=== PATIENT | male | born 1955 | race Hispanic/Latino ===

== ENCOUNTER 2016-09-21 14:41 | Emergency (ER) | payer MEDICAID ==
[2016-09-21 15:04] VITALS: BP 140/79
[2016-09-21] MEDS ORDERED: TYLENOL #3 PO ONE (15:23)
--- NOTE | 2016-09-21 15:25 | Emergency Department Report ---
ED Lower Extremity HPI - General Chief Complaint: Extremity Injury, Lower Stated Complaint: KNEE PAIN/BACK /HEADACHE Time Seen by Provider: 09/21/16 15:21 Source: patient, EMS Mode of arrival: Stretcher Limitations: No Limitations - History of Present Illness Complaint: knee injury Onset/Timin -: Gradual, year(s) Injury: Knee: Right, Left Type of Injury: hyperflexion Place: home Severity: moderate Severity scale (0 -10): 5 Improves With: NSAID Worsens With: weight bearing, movement Associated Symptoms: able to partially bear weight, ambulatory. denies: snap/ pop sensation, swelling, numbness, tingling Treatments Prior to Arrival: cold therapy - Related Data Home Medications Medication Instructions Recorded Confirmed Last Taken diphenhydrAMINE [Benadryl] 100 mg PO PRN PRN 03/04/13 10/30/14 3 Days Ago clonazePAM 2 mg PO BID 10/09/14 10/30/14 3 Days Ago clonazePAM [KlonoPIN] 2 mg PO BID 10/09/14 10/30/14 3 Days Ago Previous Rx's Medication Instructions Recorded Last Taken Type LORazepam [Ativan] 2 mg PO Q8HR #6 tablet 08/31/14 3 Days Ago Rx Bupropion HCl [Wellbutrin XL] 300 mg PO QAM #30 tab.er.24h 09/10/14 3 Days Ago Rx Venlafaxine Xr [Effexor XR] 150 mg PO ONCE #30 capsule 09/10/14 3 Days Ago Rx Zolpidem [Ambien] 10 mg PO QHS #10 tablet 09/10/14 3 Days Ago Rx traMADol [Ultram 50 MG tab] 50 mg PO Q6HR PRN #30 tablet 08/18/16 Unknown Rx HYDROcodone/APAP 10-325 [[place] 1 each PO Q8HR PRN #15 tablet 09/21/16 Unknown Rx 10-325 mg TAB] Allergies Allergy/AdvReac Type Severity Reaction Status Date / Time buspirone HCl [From BuSpar] AdvReac PSYCHOTIC Verified 08/18/16 17:18 olanzapine [From Zyprexa] AdvReac PSYCHOTIC Verified 08/18/16 17:18 quetiapine fumarate AdvReac PSYCHOTIC Verified 08/18/16 17:18 [From Seroquel] ED Review of Systems ROS: Stated complaint: KNEE PAIN/BACK /HEADACHE Other details as noted in HPI Constitutional: denies: chills, fever Eyes: denies: eye pain, eye discharge, vision change ENT: denies: ear pain, throat pain Respiratory: denies: cough, shortness of breath, wheezing Cardiovascular: denies: chest pain, palpitations Endocrine: no symptoms reported Gastrointestinal: denies: abdominal pain, nausea, diarrhea Genitourinary: denies: urgency, dysuria Musculoskeletal: denies: back pain, joint swelling, arthralgia Skin: denies: rash, lesions Neurological: denies: headache, weakness, paresthesias Psychiatric: denies: anxiety, depression Hematological/Lymphatic: denies: easy bleeding, easy bruising ED Past Medical Hx - Past Medical History Hx Hypertension: Yes Hx Arthritis: Yes Hx Psychiatric Treatment: Yes (anxiety, ptsd, depression) Additional medical history: CHRONIC BACK PAIN. HARD OF HEARING. BULGING DISCS - Surgical History Additional Surgical History: L leg surgery (1994) - Social History Smoking Status: Never Smoker Substance Use Type: None - Medications Home Medications: Home Medications Medication Instructions Recorded Confirmed Last Taken Type diphenhydrAMINE [Benadryl] 100 mg PO PRN PRN 03/04/13 10/30/14 3 Days Ago History LORazepam [Ativan] 2 mg PO Q8HR #6 tablet 08/31/14 10/30/14 3 Days Ago Rx Bupropion HCl [Wellbutrin XL] 300 mg PO QAM #30 tab.er.24h 09/10/14 10/30/14 3 Days Ago Rx Venlafaxine Xr [Effexor XR] 150 mg PO ONCE #30 capsule 09/10/14 10/30/14 3 Days Ago Rx Zolpidem [Ambien] 10 mg PO QHS #10 tablet 09/10/14 10/30/14 3 Days Ago Rx clonazePAM 2 mg PO BID 10/09/14 10/30/14 3 Days Ago History clonazePAM [KlonoPIN] 2 mg PO BID 10/09/14 10/30/14 3 Days Ago History traMADol [Ultram 50 MG tab] 50 mg PO Q6HR PRN #30 tablet 08/18/16 Unknown Rx HYDROcodone/APAP 10-325 [[place] 1 each PO Q8HR PRN #15 tablet 09/21/16 Unknown Rx 10-325 mg TAB] ED Physical Exam - General Limitations: No Limitations General appearance: alert, in no apparent distress - Head Head exam: Present: atraumatic, normocephalic - Eye Eye exam: Present: normal appearance - ENT ENT exam: Present: mucous membranes moist - Neck Neck exam: Present: normal inspection - Respiratory Respiratory exam: Present: normal lung sounds bilaterally. Absent: respiratory distress - Cardiovascular Cardiovascular Exam: Present: regular rate, normal rhythm. Absent: systolic murmur, diastolic murmur, rubs, gallop - GI/Abdominal GI/Abdominal exam: Present: soft, normal bowel sounds - Rectal Rectal exam: Present: deferred - Extremities Exam Extremities exam: Present: normal inspection, full ROM, tenderness (bilateral patella tendon tenderness , good rom but limited due to pain , able to ambulate here in the ER), normal capillary refill. Absent: pedal edema, joint swelling, calf tenderness - Back Exam Back exam: Present: normal inspection - Neurological Exam Neurological exam: Present: alert, oriented X3 - Psychiatric Psychiatric exam: Present: normal affect, normal mood - Skin Skin exam: Present: warm, dry, intact, normal color. Absent: rash ED Course Vital Signs 09/21/16 09/21/16 14:58 15:54 Temperature 98.3 F Pulse Rate 88 Respiratory 16 20 Rate Blood Pressure 140/79 O2 Sat by Pulse 99 Oximetry Critical care attestation.: If time is entered above; I have spent that time in minutes in the direct care of this critically ill patient, excluding procedure time. ED Disposition Clinical Impression: Knee pain Disposition: DISCHARGED TO HOME OR SELFCARE Is pt being admited?: No Does the pt Need Aspirin: No Condition: Good Instructions: Lumbar Radiculopathy (ED), Arthralgia (ED) Prescriptions: HYDROcodone/APAP 10-325 [[place]incoln 10-325 mg TAB] 1 each PO Q8HR PRN #15 tablet PRN Reason: Pain Referrals: PRIMARY CARE, [Primary Care Provider] - 3-5 Days IVAN VOGT MD [Staff Physician] - 3-5 Days Time of Disposition: 17:36
--- NOTE | 2016-09-22 07:41 | XRay Report ---
LUMBOSACRAL SPINE, 3 VIEWS: History: Back pain Findings: The vertebral bodies, disk spaces and posterior elements are intact. No compression deformity or malalignment. Mild degenerative disc disease and facet arthropathy are identified at all levels. The SI joints are symmetric and unremarkable. Impression: 1. No evidence for acute injury to the lumbar spine.
--- NOTE | 2016-09-22 07:43 | XRay Report ---
BILATERAL KNEES, 3 VIEWS: History: Bilateral knee pain after fall. Findings: Normal bone mineralization. No acute osseous injury is appreciated. The joint space is within normal limits. No joint effusions are identified. Within the right knee, there is an approximate 3 mm radiodensity in the anterior soft tissues just superior to the patella. This could represent a foreign body. Please correlate with the patient and the image. Impression: Unremarkable bilateral knees. Possible soft tissue foreign body as described above. It is unclear if this is acute or chronic.
== END 2016-09-21 18:05 | disposition home or self-care (01) ==
LOC: ED 14:41
DX: M25.561 Pain in right knee (principal); M25.562 Pain in left knee; I10 Essential (primary) hypertension; M19.90 Unspecified osteoarthritis, unspecified site; F32.9 Major depressive disorder, single episode, unspecified; F41.9 Anxiety disorder, unspecified; F43.10 Post-traumatic stress disorder, unspecified; G89.29 Other chronic pain
CPT/HCPCS: 72100; 99284

== ENCOUNTER 2016-09-28 10:34 | Emergency (ER) | payer MEDICAID ==
[2016-09-28 10:43] VITALS: BP 144/105
[2016-09-28 12:40] LABS: Bilirubin,Urine NEG (Negative); Blood,Urine NEG (Negative); Ketones,Urine NEG (Negative); Leukocyte Esterase,Urine NEG (Negative); Mucus,Urine FEW /HPF; Nitrite,Urine NEG (Negative); Protein,Urine <15 mg/dL mg/dL (Negative)
--- NOTE | 2016-09-28 13:00 | Emergency Department Report ---
HPI - General Chief Complaint: Extremity Problem,Nontraumatic Time Seen by Provider: 09/28/16 11:08 - HPI HPI: 61-year-old male with history of chronic back pain presents today with worsening lower back pain radiating down his leg. Patient was seen here last week for similar symptoms, an x-ray was performed and revealed no acute findings. Patient is also complaining of numbness going down his right leg. Patient was unable to follow up with orthopedic due to them not accepting his medicaid. Denies any new or worsening symptoms. Denies bowel or bladder incontinence. Patient does complain of weak stream and dribbling post urination 2 weeks. Denies fever, chills, nausea, vomiting, chest pain, shortness of breath, abdominal pain. ED Past Medical Hx - Past Medical History Previous Medical History?: Yes Hx Hypertension: Yes Hx Arthritis: Yes Hx Psychiatric Treatment: Yes (anxiety, ptsd, depression) Additional medical history: CHRONIC BACK PAIN. HARD OF HEARING. BULGING DISCS - Surgical History Past Surgical History?: Yes Additional Surgical History: L leg surgery (1994) - Social History Smoking Status: Current Every Day Smoker Substance Use Type: Non Opiate Pain, Prescribed - Medications Home Medications: Home Medications Medication Instructions Recorded Confirmed Last Taken Type diphenhydrAMINE [Benadryl] 100 mg PO PRN PRN 03/04/13 10/30/14 3 Days Ago History LORazepam [Ativan] 2 mg PO Q8HR #6 tablet 08/31/14 10/30/14 3 Days Ago Rx Bupropion HCl [Wellbutrin XL] 300 mg PO QAM #30 tab.er.24h 09/10/14 10/30/14 3 Days Ago Rx Venlafaxine Xr [Effexor XR] 150 mg PO ONCE #30 capsule 09/10/14 10/30/14 3 Days Ago Rx Zolpidem [Ambien] 10 mg PO QHS #10 tablet 09/10/14 10/30/14 3 Days Ago Rx clonazePAM 2 mg PO BID 10/09/14 10/30/14 3 Days Ago History clonazePAM [KlonoPIN] 2 mg PO BID 10/09/14 10/30/14 3 Days Ago History traMADol [Ultram 50 MG tab] 50 mg PO Q6HR PRN #30 tablet 08/18/16 Unknown Rx Cyclobenzaprine [Flexeril] 10 mg PO TID PRN #20 tablet 09/28/16 Unknown Rx HYDROcodone/APAP 10-325 [Lloyd 1 each PO Q8HR PRN #7 tablet 09/28/16 Unknown Rx 10-325 mg TAB] Ketorolac [Toradol] 10 mg PO Q6H PRN #20 tablet 09/28/16 Unknown Rx ED Review of Systems ROS: Stated complaint: NUMBNESS IN BOTH LEGS Other details as noted in HPI Constitutional: denies: chills, fever, malaise Eyes: denies: eye pain ENT: denies: ear pain, throat pain, congestion Respiratory: denies: cough, shortness of breath, wheezing Cardiovascular: denies: chest pain, palpitations Endocrine: no symptoms reported Gastrointestinal: denies: abdominal pain, nausea, vomiting Genitourinary: other (weak stream and dribbling post urination). denies: urgency, dysuria, frequency, hematuria Musculoskeletal: back pain Neurological: numbness. denies: headache, weakness Physical Exam - Physical Exam Vital Signs: Vital Signs 09/28/16 10:39 Temperature 98.6 F Pulse Rate 98 H Respiratory 20 Rate Blood Pressure 144/105 O2 Sat by Pulse 100 Oximetry Physical Exam: GENERAL: The patient is well-developed and well-nourished. Patient is in NAD. HEAD: Normocephalic. Atraumatic. CHEST/LUNGS: Clear to auscultation throughout. HEART/CARDIOVASCULAR: Regular rate and rhythm. No murmurs, rubs or gallops. ABDOMEN: Abdomen is soft, nontender. Bowel sounds normoactive. No guarding or rebound tenderness. EXTREMITIES: Full range of motion. Peripheral pulses intact. Capillary refill less than 2 seconds. BACK: Full ROM. Positive for midline and bilateral paraspinal tenderness of the lumbar region. Positive for tenderness to palpation of right sciatic notch. Negative straight leg raise bilaterally. NEURO: Alert and oriented x 3. Normal gait. ED Course Vital Signs 09/28/16 10:39 Temperature 98.6 F Pulse Rate 98 H Respiratory 20 Rate Blood Pressure 144/105 O2 Sat by Pulse 100 Oximetry ED Medical Decision Making - Lab Data Vital Signs 09/28/16 10:39 Temperature 98.6 F Pulse Rate 98 H Respiratory 20 Rate Blood Pressure 144/105 O2 Sat by Pulse 100 Oximetry Lab Results 09/28/16 Range/Units 11:30 Urine Color Yellow (Yellow) Urine Turbidity Clear (Clear) Urine pH 7.0 (5.0-7.0) Ur Specific [place] 1.014 (1.003-1.030) Urine Protein <15 mg/dl (Negative) mg/dL Urine Glucose (UA) Neg (Negative) mg/dL Urine Ketones Neg (Negative) mg/dL Urine Blood Neg (Negative) Urine Nitrite Neg (Negative) Urine Bilirubin Neg (Negative) Urine Urobilinogen 4.0 (<2.0) mg/dL Ur Leukocyte Esterase Neg (Negative) Urine WBC (Auto) 1.0 (0.0-6.0) /HPF Urine RBC (Auto) 3.0 (0.0-6.0) /HPF U Epithel Cells (Auto) < 1.0 (0-13.0) /HPF Calcium Oxalate Crystal 1+ Urine Mucus Few /HPF - Medical Decision Making 61-year-old male presents today with history of chronic back pain and sciatica like symptoms. Patient will be provided with a referral for orthopedic. Patient is in no acute distress at this time. He will be discharged home and is encouraged to follow up with a primary care provider. He will be sent home on Flexeril and tramadol and is encouraged to return to the emergency room for any worsening symptoms. Critical care attestation.: If time is entered above; I have spent that time in minutes in the direct care of this critically ill patient, excluding procedure time. ED Disposition Clinical Impression: Chronic back pain Qualifiers: Back pain location: low back pain Back pain laterality: bilateral Sciatica presence: with sciatica Sciatica laterality: sciatica of right side Qualified Code(s): M54.41 - Lumbago with sciatica, right side; G89.29 - Other chronic pain Disposition: DISCHARGED TO HOME OR SELFCARE Is pt being admited?: No Does the pt Need Aspirin: No Condition: Stable Instructions: Chronic Back Pain (ED), Sciatica (ED) Additional Instructions: Follow-up with primary care provider and orthopedic. Return to the emergency department if symptoms worsen. Prescriptions: Cyclobenzaprine [Flexeril] 10 mg PO TID PRN #20 tablet PRN Reason: Muscle Spasm HYDROcodone/APAP 10-325 [Lloyd 10-325 mg TAB] 1 each PO Q8HR PRN #7 tablet PRN Reason: Pain Ketorolac [Toradol] 10 mg PO Q6H PRN #20 tablet PRN Reason: Pain Referrals: [facility] [Provider Group] - 3-5 Days PRIMARY CAREMD [Primary Care Provider] - 3-5 Days ARNOLDO TAYLOR MD [Staff Physician] - 3-5 Days JULIETTE SOTO MD [Staff Physician] - 3-5 Days SHERITA MCLAUGHLIN MD [Staff Physician] - 3-5 Days Forms: Work/School Release Form(ED) Time of Disposition: 13:03
== END 2016-09-28 13:18 | disposition home or self-care (01) ==
LOC: ED 10:34
DX: M54.41 Lumbago with sciatica, right side (principal); G89.29 Other chronic pain; I10 Essential (primary) hypertension; M19.90 Unspecified osteoarthritis, unspecified site; F41.9 Anxiety disorder, unspecified; F32.9 Major depressive disorder, single episode, unspecified; F17.200 Nicotine dependence, unspecified, uncomplicated
CPT/HCPCS: 81001; 99283

== ENCOUNTER 2016-10-01 12:46 | Emergency (ER) | payer MEDICAID ==
--- NOTE | 2016-10-01 17:31 | Emergency Department Report ---
<GERALD FLORES - Last Filed: 10/01/16 17:26> ED General Adult HPI - General Chief complaint: Recheck/Abnormal Lab/Rx Stated complaint: MED REFILL Time Seen by Provider: 10/01/16 16:57 Source: patient Mode of arrival: Ambulatory Limitations: No Limitations - History of Present Illness Initial comments: PT presents to the ER the third time this month for back pain. PT states he does not have the right insurance to see ortho. PT states his PCP is "no good" and will only give him RXs for lisinopril. PT states he is on Klonopin for SZ disorder and PTSD. PT states he needs RX for Ativan, Tylenol #3, and Ambien. PT reports having chronic back pain. PT also states that he does not sleep well at night. PT states he will sleep for 2 hours at a time. MD Complaint: Medication Refill Location: back Severity scale (0 -10): 9 Quality: constant Consistency: constant Improves with: medication ([place]/Flexeril/Ultram/Tylenol #3/ Ativan/Ambien) Associated Symptoms: denies: fever/chills, nausea/vomiting Treatments Prior to Arrival: NSAID - Related Data Home Medications Medication Instructions Recorded Confirmed Last Taken diphenhydrAMINE [Benadryl] 100 mg PO PRN PRN 03/04/13 10/30/14 3 Days Ago clonazePAM 2 mg PO BID 10/09/14 10/30/14 3 Days Ago clonazePAM [KlonoPIN] 2 mg PO BID 10/09/14 10/30/14 3 Days Ago Previous Rx's Medication Instructions Recorded Last Taken Type LORazepam [Ativan] 2 mg PO Q8HR #6 tablet 08/31/14 3 Days Ago Rx Bupropion HCl [Wellbutrin XL] 300 mg PO QAM #30 tab.er.24h 09/10/14 3 Days Ago Rx Venlafaxine Xr [Effexor XR] 150 mg PO ONCE #30 capsule 09/10/14 3 Days Ago Rx Zolpidem [Ambien] 10 mg PO QHS #10 tablet 09/10/14 3 Days Ago Rx traMADol [Ultram 50 MG tab] 50 mg PO Q6HR PRN #30 tablet 08/18/16 Unknown Rx Cyclobenzaprine [Flexeril] 10 mg PO TID PRN #20 tablet 09/28/16 Unknown Rx HYDROcodone/APAP 10-325 [[place] 1 each PO Q8HR PRN #7 tablet 09/28/16 Unknown Rx 10-325 mg TAB] Ketorolac [Toradol] 10 mg PO Q6H PRN #20 tablet 09/28/16 Unknown Rx Allergies Allergy/AdvReac Type Severity Reaction Status Date / Time buspirone HCl [From BuSpar] AdvReac PSYCHOTIC Verified 10/01/16 13:41 haloperidol [From Haldol] AdvReac HANDS Verified 10/01/16 13:41 SWELL / PSYCHOTIC haloperidol lactate AdvReac HANDS Verified 10/01/16 13:41 [From Haldol] SWELL / PSYCHOTIC olanzapine [From Zyprexa] AdvReac PSYCHOTIC Verified 10/01/16 13:41 quetiapine fumarate AdvReac PSYCHOTIC Verified 10/01/16 13:41 [From Seroquel] ED Review of Systems ROS: Stated complaint: MED REFILL Other details as noted in HPI Comment: All other systems reviewed and negative Constitutional: denies: chills, fever Gastrointestinal: denies: abdominal pain Musculoskeletal: back pain (radiates down legs ), other (raymond knee pain/ grinding ) Neurological: numbness (down legs ) Psychiatric: anxiety, other (unable to sleep) ED Past Medical Hx - Past Medical History Hx Hypertension: Yes Hx Arthritis: Yes Hx Psychiatric Treatment: Yes (anxiety, ptsd, depression) Additional medical history: CHRONIC BACK PAIN. HARD OF HEARING. BULGING DISCS - Surgical History Additional Surgical History: L leg surgery (1994) - Social History Smoking Status: Light Tobacco Smoker Substance Use Type: Prescribed - Medications Home Medications: Home Medications Medication Instructions Recorded Confirmed Last Taken Type diphenhydrAMINE [Benadryl] 100 mg PO PRN PRN 03/04/13 10/30/14 3 Days Ago History LORazepam [Ativan] 2 mg PO Q8HR #6 tablet 08/31/14 10/30/14 3 Days Ago Rx Bupropion HCl [Wellbutrin XL] 300 mg PO QAM #30 tab.er.24h 09/10/14 10/30/14 3 Days Ago Rx Venlafaxine Xr [Effexor XR] 150 mg PO ONCE #30 capsule 09/10/14 10/30/14 3 Days Ago Rx Zolpidem [Ambien] 10 mg PO QHS #10 tablet 09/10/14 10/30/14 3 Days Ago Rx clonazePAM 2 mg PO BID 10/09/14 10/30/14 3 Days Ago History clonazePAM [KlonoPIN] 2 mg PO BID 10/09/14 10/30/14 3 Days Ago History traMADol [Ultram 50 MG tab] 50 mg PO Q6HR PRN #30 tablet 08/18/16 Unknown Rx Cyclobenzaprine [Flexeril] 10 mg PO TID PRN #20 tablet 09/28/16 Unknown Rx HYDROcodone/APAP 10-325 [[place] 1 each PO Q8HR PRN #7 tablet 09/28/16 Unknown Rx 10-325 mg TAB] Ketorolac [Toradol] 10 mg PO Q6H PRN #20 tablet 09/28/16 Unknown Rx ED Physical Exam - General Limitations: No Limitations General appearance: alert, in no apparent distress - Head Head exam: Present: atraumatic, normocephalic, normal inspection - Eye Eye exam: Present: normal appearance. Absent: conjunctival injection - ENT ENT exam: Present: other (PT hard of hearing ) - Neck Neck exam: Present: normal inspection, full ROM. Absent: tenderness - Respiratory Respiratory exam: Present: other (diminished raymond ). Absent: respiratory distress, wheezes, rhonchi - Cardiovascular Cardiovascular Exam: Present: regular rate, normal rhythm, normal heart sounds - GI/Abdominal GI/Abdominal exam: Present: soft. Absent: tenderness - Extremities Exam Extremities exam: Present: normal inspection. Absent: pedal edema - Back Exam Back exam: Present: normal inspection, tenderness, paraspinal tenderness, vertebral tenderness. Absent: CVA tenderness (R), CVA tenderness (L) - Neurological Exam Neurological exam: Present: alert, oriented X3, normal gait - Psychiatric Psychiatric exam: Present: normal affect, normal mood - Skin Skin exam: Present: warm, dry, intact ED Course Vital Signs 10/01/16 10/02/16 10/02/16 13:34 00:07 01:44 Temperature 98.2 F 97.8 F Pulse Rate 96 H 64 Respiratory 17 20 18 Rate Blood Pressure 154/99 Blood Pressure 137/77 [Left] O2 Sat by Pulse 98 96 96 Oximetry - Reevaluation(s) Reevaluation #1: 10/01/16 17:[address] Espinoza regarding pt's requests. PT aware that we will not be able to prescribe Tylenol #3, Ambien, and Ativan. PT states he will just "go home and kill [himself]" PT states he can not live with this pain. PT aware a 10- 13 will be signed. - Pulse Oximetry Interpretation Digit-Finger Initial Pulse Oximetry Readin Actions Taken: none ED Medical Decision Making - Differential Diagnosis chronic pain, si, drug seeking behavior Critical care attestation.: If time is entered above; I have spent that time in minutes in the direct care of this critically ill patient, excluding procedure time. ED Disposition Clinical Impression: Medical clearance for psychiatric admission, Suicidal ideation Chronic back pain Qualifiers: Back pain location: low back pain Back pain laterality: unspecified Sciatica presence: with sciatica Sciatica laterality: sciatica laterality unspecified Qualified Code(s): M54.40 - Lumbago with sciatica, unspecified side; G89.29 - Other chronic pain Depression Qualifiers: Depression Type: unspecified Qualified Code(s): F32.9 - Major depressive disorder, single episode, unspecified Disposition: DC/TX PSY HOSP/PSY UNIT Condition: Serious Referrals: PRIMARY CARE, [Primary Care Provider] - 3-5 Days <ALFIE BUENO - Last Filed: 10/02/16 01:49> ED Medical Decision Making - Lab Data Result diagrams: 10/01/16 20:15 10/01/16 20:15 - Medical Decision Making Patient is 61-year-old male with history of hypertension, PTSD, bipolar affect disorder presenting today because of worsening lower back pain and lateral knee pain. Patient has a known history of chronic pain in these locations. Is out of his medications which includes Ativan and narcotic pain medication. When questioned further he states that he has been suicidal in the recent past because of his pain. He has attempted suicide in the past with an overdose requiring an ICU admission. His sister also committed suicide successfully in the past. His exam was unremarkable other than depressed affect Given patient's concerning history of psychiatric disorder and suicidal attempt We'll place on 1013 ED Disposition Is pt being admited?: No
[2016-10-01 20:31] LABS: Basophils % (Auto) 0.8 % (0.0-1.8); Eosinophils % (Auto) 1.9 % (0.0-4.3); Hematocrit 37.1 % (35.5-45.6); Hemoglobin 12.3 gm/dl (11.8-15.2); Mean Corpuscular HGB Conc 33 % (32-34); Mean Corpuscular Hemoglobin 27 pg (28-32); Mean Corpuscular Volume 82 fl (84-94); Platelet Count 222 K/mm3 (140-440); Red Blood Count 4.53 M/mm3 (3.65-5.03); Red Cell Distribution Width 13.7 % (13.2-15.2); White Blood Count 6.4 K/mm3 (4.5-11.0)
[2016-10-01 20:52] LABS: Alanine Aminotransferase 11 units/L (7-56); Albumin 3.8 g/dL (3.9-5); Albumin/Globulin Ratio 1.6 %; Alkaline Phosphatase 46 units/L (35-129); Anion Gap 14 mmol/L; Bilirubin,Total 0.2 mg/dL (0.1-1.2); Blood Urea Nitrogen 12 mg/dL (9-20); Calcium 8.5 mg/dL (8.4-10.2); Carbon Dioxide 27 mmol/L (22-30); Chloride 104.4 mmol/L (98-107); Glucose 102 mg/dL (75-100); Potassium 4.5 mmol/L (3.6-5.0); Sodium 141 mmol/L (137-145); Total Protein 6.2 g/dL (6.3-8.2)
[2016-10-01] MEDS: VALIUM PO ONE (21:25)
[2016-10-02 01:17] LABS: Urine Drugs of Abuse Note Disclamer
[2016-10-02 01:33] LABS: Bilirubin,Urine NEG (Negative)
[2016-10-02 01:34] LABS: Blood,Urine NEG (Negative); Ketones,Urine NEG (Negative); Leukocyte Esterase,Urine NEG (Negative); Mucus,Urine 1+ /HPF; Nitrite,Urine NEG (Negative); Protein,Urine <15 mg/dL mg/dL (Negative)
[2016-10-02 09:32] VITALS: BP 148/90
--- NOTE | 2016-10-02 12:40 | Consultation ---
History of Present Illness - Reason for Consult Consult date: 10/02/16 Reason for consult: Mental Health Evaluation Requesting physician: ALFIE BUENO - Chief Complaint Chief complaint: "I am not suicidal" - History of Present Psychiatric Illness 61 y.o white male presents to the ER the third time this month for back pain. Today patient is calm and cooperative with a linear thought process. He stated that he was suicidal because he wanted pain medication for his lower back on admission. He denies being SI/HI's and AVH's. He would like information about a pain specialist in his local area. Patient [place] [address] from [facility]. He stated that he has psy medications at home that he can take, but would like information about local outpatient psy services. He states that he slept well last night with no complaints of a poor appetite. He denies recreational drug use or consumption of alcohol. He stated that he battles with PTSD from multiple deaths in his family. His major concern is back pain. Medications and Allergies Allergies Allergy/AdvReac Type Severity Reaction Status Date / Time buspirone HCl [From BuSpar] AdvReac PSYCHOTIC Verified 10/01/16 13:41 haloperidol [From Haldol] AdvReac HANDS Verified 10/01/16 13:41 SWELL / PSYCHOTIC haloperidol lactate AdvReac HANDS Verified 10/01/16 13:41 [From Haldol] SWELL / PSYCHOTIC olanzapine [From Zyprexa] AdvReac PSYCHOTIC Verified 10/01/16 13:41 quetiapine fumarate AdvReac PSYCHOTIC Verified 10/01/16 13:41 [From Seroquel] Home Medications Medication Instructions Recorded Confirmed Last Taken Type diphenhydrAMINE [Benadryl] 100 mg PO PRN PRN 03/04/13 10/02/16 3 Days Ago History LORazepam [Ativan] 2 mg PO Q8HR #6 tablet 08/31/14 10/02/16 3 Days Ago Rx Bupropion HCl [Wellbutrin XL] 300 mg PO QAM #30 tab.er.24h 09/10/14 10/02/16 3 Days Ago Rx Venlafaxine Xr [Effexor XR] 150 mg PO ONCE #30 capsule 09/10/14 10/02/16 3 Days Ago Rx Zolpidem [Ambien] 10 mg PO QHS #10 tablet 09/10/14 10/02/16 3 Days Ago Rx clonazePAM 2 mg PO BID 10/09/14 10/02/16 3 Days Ago History clonazePAM [KlonoPIN] 2 mg PO BID 10/09/14 10/02/16 3 Days Ago History traMADol [Ultram 50 MG tab] 50 mg PO Q6HR PRN #30 tablet 08/18/16 10/02/16 Unknown Rx Cyclobenzaprine [Flexeril] 10 mg PO TID PRN #20 tablet 09/28/16 10/02/16 Unknown Rx HYDROcodone/APAP 10-325 [[place] 1 each PO Q8HR PRN #7 tablet 09/28/16 10/02/16 Unknown Rx 10-325 mg TAB] Ketorolac [Toradol] 10 mg PO Q6H PRN #20 tablet 09/28/16 10/02/16 Unknown Rx Past psychiatric history - Past Medical History Past Medical History: arthritis, hypertension Past Surgical History: No surgical history - past Psychiatric treatment and history Psych: Bipolar, Depression psychiatric treatment history: multiple inpatient psy facilities. Denies fam psy hx. - Social History Social history: Lives alone ([employer] graduate), other Mental Status Exam - Vital signs Last Vital Signs Temp 97.7 F 10/02/16 09:31 Pulse 79 10/02/16 09:31 Resp 16 10/02/16 09:32 BP 148/90 10/02/16 09:31 Pulse Ox 100 10/02/16 09:32 - Exam Narrative exam: ROS (-) depression (-) delusional MSE: Appearance: calm, cooperative Behavior: good eye contact Speech: regular rate and tone Mood: "I am not depressed" Affect: flat Thought Process: linear Thought Content: denies SI/HI's and AVH's Motor Activity: Cognition: A/Ox4 Insight: fair Judgment: fair Results Result Diagrams: 10/01/16 20:15 10/01/16 20:15 Abnormal lab results 10/01/16 10/01/16 10/01/16 Range/Units 20:15 20:15 20:15 MCV 82 L (84-94) fl MCH 27 L (28-32) pg [place] % (Auto) 8.2 H (0.0-7.3) % Glucose 102 H (75-100) mg/dL Total Protein 6.2 L (6.3-8.2) g/dL Albumin 3.8 L (3.9-5) g/dL Salicylates < 0.3 L (2.8-20.0) mg/dL All other labs normal. Assessment and Plan Assessment and plan: Impression: Somatic Symptom DO. 61 y.o white male presents to the ER the third time this month for back pain. Today patient is calm and cooperative with a linear thought process. He stated that he was suicidal because he wanted pain medication for his lower back on admission. He denies SI/HI's and AVH's. Patient is no threat to self or anyone else. DD: Mood DO NOS Recommendation: Rescind 1013. Provide him with [employer] information for psy services.
--- NOTE | 2016-10-02 13:27 | Emergency Department Report ---
Blank Doc - Documentation Documentation: Patient has been evaluated by mental health and cleared for discharge. Form 1013 has been rescinded by Dr. Khan, psychiatry. Patient will be discharged home at this time without patient referral at the [facility].
== END 2016-10-02 13:52 | disposition home or self-care (01) ==
LOC: EEVIPCON 12:46 → ED 12:46
DX: R45.851 Suicidal ideations (principal); M54.40 Lumbago with sciatica, unspecified side; G89.29 Other chronic pain; I10 Essential (primary) hypertension; F17.200 Nicotine dependence, unspecified, uncomplicated
CPT/HCPCS: 36415; 80053; 80307; 81001; 85025; 93005; 93010; 99285; G0480; 80320

== ENCOUNTER 2016-10-06 22:04 | Emergency (ER) | payer MEDICAID ==
[2016-10-06 23:07] LABS: Basophils % (Auto) 0.7 % (0.0-1.8); Eosinophils % (Auto) 1.2 % (0.0-4.3); Hematocrit 40.3 % (35.5-45.6); Hemoglobin 13.3 gm/dl (11.8-15.2); Mean Corpuscular HGB Conc 33 % (32-34); Mean Corpuscular Hemoglobin 27 pg (28-32); Mean Corpuscular Volume 81 fl (84-94); Platelet Count 231 K/mm3 (140-440); Red Blood Count 4.95 M/mm3 (3.65-5.03); Red Cell Distribution Width 13.9 % (13.2-15.2); White Blood Count 7.9 K/mm3 (4.5-11.0)
[2016-10-06 23:38] LABS: Anion Gap 19 mmol/L; BUN/Creatinine Ratio 13.63; Blood Urea Nitrogen 15 mg/dL (9-20); Calcium 8.9 mg/dL (8.4-10.2); Carbon Dioxide 25 mmol/L (22-30); Glucose 80 mg/dL (75-100); Potassium 4.2 mmol/L (3.6-5.0); Sodium 140 mmol/L (137-145)
[2016-10-07 00:03] LABS: Urine Drugs of Abuse Note Disclamer
[2016-10-07 00:14] LABS: Bilirubin,Urine NEG (Negative); Blood,Urine NEG (Negative); Ketones,Urine NEG (Negative); Leukocyte Esterase,Urine NEG (Negative); Nitrite,Urine NEG (Negative); Protein,Urine <15 mg/dL mg/dL (Negative); WBC,Urine < 1.0 /HPF (0.0-6.0)
[2016-10-07] MEDS ORDERED: ATIVAN PO ONE (01:48)
--- NOTE | 2016-10-07 01:53 | Emergency Department Report ---
HPI - General Chief Complaint: Chest Pain Time Seen by Provider: 10/07/16 00:48 - HPI HPI: The patient is a 61-year-old male who presents for evaluation of chest pain. The patient reports chest pain and AVM yesterday morning, 03/24 in severity, pounding in quality, constant for hours, and several resolving. He reports associated transient shortness of breath and racing of the heart. He states that his symptoms began while having a night terror and PTSD attack this morning while lying in bed. The patient denies fever, trauma to the chest, neck pain, parasthesias, current dyspnea, cough, hemoptysis, dizziness, syncope, unilateral leg swelling, calf muscle pain, history of DVT or PE, recent immobilization, recent surgery, or history of cancer. ED Past Medical Hx - Past Medical History Hx Hypertension: Yes Hx Arthritis: Yes Hx Psychiatric Treatment: Yes (anxiety, ptsd, depression) Additional medical history: CHRONIC BACK PAIN. HARD OF HEARING. BULGING DISCS - Surgical History Additional Surgical History: L leg surgery (1994) - Social History Smoking Status: Never Smoker Substance Use Type: None - Medications Home Medications: Home Medications Medication Instructions Recorded Confirmed Last Taken Type diphenhydrAMINE [Benadryl] 100 mg PO PRN PRN 03/04/13 10/02/16 3 Days Ago History LORazepam [Ativan] 2 mg PO Q8HR #6 tablet 08/31/14 10/02/16 3 Days Ago Rx Bupropion HCl [Wellbutrin XL] 300 mg PO QAM #30 tab.er.24h 09/10/14 10/02/16 3 Days Ago Rx Venlafaxine Xr [Effexor XR] 150 mg PO ONCE #30 capsule 09/10/14 10/02/16 3 Days Ago Rx Zolpidem [Ambien] 10 mg PO QHS #10 tablet 09/10/14 10/02/16 3 Days Ago Rx clonazePAM 2 mg PO BID 10/09/14 10/02/16 3 Days Ago History clonazePAM [KlonoPIN] 2 mg PO BID 10/09/14 10/02/16 3 Days Ago History traMADol [Ultram 50 MG tab] 50 mg PO Q6HR PRN #30 tablet 08/18/16 10/02/16 Unknown Rx Cyclobenzaprine [Flexeril] 10 mg PO TID PRN #20 tablet 09/28/16 10/02/16 Unknown Rx HYDROcodone/APAP 10-325 [[place] 1 each PO Q8HR PRN #7 tablet 09/28/16 10/02/16 Unknown Rx 10-325 mg TAB] Ketorolac [Toradol] 10 mg PO Q6H PRN #20 tablet 09/28/16 10/02/16 Unknown Rx ED Review of Systems ROS: Stated complaint: CP/SOB/DEPRESSION Other details as noted in HPI Constitutional: denies: fever ENT: denies: throat or neck pain Respiratory: denies: cough, shortness of breath Cardiovascular: reports chest pain Endocrine: denies unexplained weight loss or gain Gastrointestinal: denies: abdominal pain, nausea Genitourinary: denies: dysuria Musculoskeletal: denies: leg swelling Skin: denies: rash Neurological: denies: headache Hematological/Lymphatic: denies: easy bleeding or easy bruising Psych: reports anxiousness, denies sadness or hopelessness Physical Exam - Physical Exam Vital Signs: Vital Signs 10/06/16 10/06/16 10/06/16 22:24 23:12 23:19 Temperature 98.4 F Pulse Rate 96 H 86 79 Respiratory 18 12 18 Rate Blood Pressure 141/91 Blood Pressure 132/64 [Left] O2 Sat by Pulse 100 98 98 Oximetry Physical Exam: General: well-nourished, well-developed, no acute distress Head: Normocephalic, atraumatic Eyes: normal sclera ENT: Mucous membranes are pink and moist Neck: trachea midline, neck supple, No neck stiffness, no cervical adenopathy Respiratory: Breath sounds equal bilaterally, no wheezing, rales, or rhonchi Cardio: S1 and S2 present, no murmurs, rubs, gallops, capillary refill is brisk Abdomen: Normoactive bowel sounds, soft abdomen, no tenderness Musc: No pitting edema Skin: No rash Neuro: no facial drooping, normal speech Psych: Normal affect, patient anxious, no suicidal ideation, no hallucinations ED Course Vital Signs 10/06/16 10/06/16 10/06/16 22:24 23:12 23:19 Temperature 98.4 F Pulse Rate 96 H 86 79 Respiratory 18 12 18 Rate Blood Pressure 141/91 Blood Pressure 132/64 [Left] O2 Sat by Pulse 100 98 98 Oximetry ED Medical Decision Making - Lab Data Result diagrams: 10/06/16 22:50 10/06/16 22:50 - Medical Decision Making The patient was seen and examined by myself. The patient is placed on a college intern and continuous pulse ox. On initial evaluation, the patient was found to be in no distress. EKG was negative for findings suggestive of acute cardiac infarct. Labs and imaging are obtained. The patient is given a tablet of Ativan for his anxiety and Tylenol for his pain. Chest x-ray is negative for pneumothorax, focal consolidation, pulmonary vascular congestion, pleural effusion, or other obvious acute cardiopulmonary disease process. Lab results were non-concerning including levels of troponin, WBC, hemoglobin, hematocrit, electrolytes, renal function. The patient was reevaluated and reported that their symptoms were markedly improved. As the patient has a AGAPITO risk score less than 2, and a well's score less than 2, the patient is at low risk of ACS or pulmonary emboli etiology of their symptoms. The patient's symptoms are more consistent with panic attack. The patient is stable for discharge with outpatient follow-up. The patient is given follow-up and return instructions. The patient expressed understanding and agreed with the plan. The patient is discharged in stable condition. Critical care attestation.: If time is entered above; I have spent that time in minutes in the direct care of this critically ill patient, excluding procedure time. ED Disposition Clinical Impression: Acute chest pain, Panic attack Disposition: DISCHARGED TO HOME OR SELFCARE Is pt being admited?: No Does the pt Need Aspirin: No Condition: Stable Instructions: Chest Pain (ED) Referrals: PRIMARY CARE, [Primary Care Provider] - 3-5 Days [facility] [Outside] - 3-5 Days Time of Disposition: 01:49
[2016-10-07 03:29] VITALS: BP 119/65
--- NOTE | 2016-10-07 08:31 | XRay Report ---
AP CHEST: History: Chest pain. AP view of the chest demonstrates a normal mediastinal and cardiac contour with clear lungs and normal bony and soft tissue structures. IMPRESSION: Normal AP chest.
== END 2016-10-07 03:37 | disposition home or self-care (01) ==
LOC: ED 22:04
DX: R07.9 Chest pain, unspecified (principal); F41.0 Panic disorder [episodic paroxysmal anxiety]; I10 Essential (primary) hypertension; M19.90 Unspecified osteoarthritis, unspecified site; F32.9 Major depressive disorder, single episode, unspecified; F41.9 Anxiety disorder, unspecified; G89.29 Other chronic pain; Z88.8 Allergy status to other drugs, medicaments and biological substances
CPT/HCPCS: 36415; 71010; 80048; 80307; 81001; 84484; 85025; 93005; 93010

== ENCOUNTER 2016-11-28 16:27 | Emergency (ER) | payer MEDICAID ==
[2016-11-28] MEDS ORDERED: TORADOL IM ONE (20:31)
[2016-11-28] MEDS ORDERED: TORADOL ONE (20:40)
--- NOTE | 2016-11-28 21:00 | Emergency Department Report ---
ED Back Pain/Injury HPI - General Chief Complaint: Fall Stated Complaint: FALL/BACK PAIN/RT LEG PAIN Time Seen by Provider: 11/28/16 20:18 Source: patient Limitations: No Limitations - History of Present Illness Complaint: back pain, fall Onset/Timin -: Sudden, days(s) Similar Symptoms Previously: Yes Place: home Radiation: right leg Severity: moderate Severity scale (0 -10): 4 Quality: sharp, aching Consistency: intermittent Improves With: other (rest ) Worsens With: movement, walking Context: fall (fell from bench less than 2 feet ) Associated Symptoms: denies: weakness, numbness, difficulty urinating, incontinence, fever/chills Treatments Prior to Arrival: other (none) - Related Data Home Medications Medication Instructions Recorded Confirmed Last Taken diphenhydrAMINE [Benadryl] 100 mg PO PRN PRN 03/04/13 11/28/16 3 Days Ago clonazePAM [KlonoPIN] 2 mg PO BID 10/09/14 11/28/16 11/28/16 Previous Rx's Medication Instructions Recorded Last Taken Type Bupropion HCl [Wellbutrin XL] 300 mg PO QAM #30 tab.er.24h 09/10/14 3 Days Ago Rx Venlafaxine Xr [Effexor XR] 150 mg PO ONCE #30 capsule 09/10/14 3 Days Ago Rx Zolpidem [Ambien] 10 mg PO QHS #10 tablet 09/10/14 1 Day Ago Rx traMADol [Ultram 50 MG tab] 50 mg PO Q6HR PRN #30 tablet 08/18/16 Unknown Rx Cyclobenzaprine [Flexeril] 10 mg PO TID PRN #20 tablet 09/28/16 Unknown Rx HYDROcodone/APAP 10-325 [[place] 1 each PO Q8HR PRN #7 tablet 09/28/16 Unknown Rx 10-325 mg TAB] Ketorolac [Toradol] 10 mg PO Q6H PRN #20 tablet 09/28/16 Unknown Rx Acetaminophen [Shake That Ache] 500 mg PO QID PRN #30 tablet 11/28/16 Unknown Rx Cyclobenzaprine HCl [Flexeril 5 MG 5 mg PO BID PRN #30 tab 11/28/16 Unknown Rx TAB] Allergies Allergy/AdvReac Type Severity Reaction Status Date / Time buspirone HCl [From BuSpar] AdvReac PSYCHOTIC Verified 10/01/16 13:41 haloperidol [From Haldol] AdvReac HANDS Verified 10/01/16 13:41 SWELL / PSYCHOTIC haloperidol lactate AdvReac HANDS Verified 10/01/16 13:41 [From Haldol] SWELL / PSYCHOTIC olanzapine [From Zyprexa] AdvReac PSYCHOTIC Verified 10/01/16 13:41 quetiapine fumarate AdvReac PSYCHOTIC Verified 10/01/16 13:41 [From Seroquel] ED Review of Systems ROS: Stated complaint: FALL/BACK PAIN/RT LEG PAIN Other details as noted in HPI Constitutional: denies: chills, fever Eyes: denies: eye pain, eye discharge, vision change ENT: denies: ear pain, throat pain Respiratory: denies: cough, shortness of breath, wheezing Cardiovascular: denies: chest pain, palpitations Endocrine: no symptoms reported Gastrointestinal: denies: abdominal pain, nausea, diarrhea Genitourinary: denies: urgency, dysuria Musculoskeletal: back pain, arthralgia, myalgia Skin: denies: rash, lesions Neurological: denies: headache, weakness, paresthesias Psychiatric: denies: anxiety, depression Hematological/Lymphatic: denies: easy bleeding, easy bruising ED Past Medical Hx - Past Medical History Hx Hypertension: Yes Hx Arthritis: Yes Hx Psychiatric Treatment: Yes (anxiety, ptsd, depression) Additional medical history: CHRONIC BACK PAIN. HARD OF HEARING. BULGING DISCS - Surgical History Additional Surgical History: L leg surgery (1994) - Social History Smoking Status: Current Some Day Smoker Substance Use Type: None - Medications Home Medications: Home Medications Medication Instructions Recorded Confirmed Last Taken Type diphenhydrAMINE [Benadryl] 100 mg PO PRN PRN 03/04/13 11/28/16 3 Days Ago History Bupropion HCl [Wellbutrin XL] 300 mg PO QAM #30 tab.er.24h 09/10/14 11/28/16 3 Days Ago Rx Venlafaxine Xr [Effexor XR] 150 mg PO ONCE #30 capsule 09/10/14 11/28/16 3 Days Ago Rx Zolpidem [Ambien] 10 mg PO QHS #10 tablet 09/10/14 11/28/16 1 Day Ago Rx clonazePAM [KlonoPIN] 2 mg PO BID 10/09/14 11/28/16 11/28/16 History traMADol [Ultram 50 MG tab] 50 mg PO Q6HR PRN #30 tablet 08/18/16 11/28/16 Unknown Rx Cyclobenzaprine [Flexeril] 10 mg PO TID PRN #20 tablet 09/28/16 11/28/16 Unknown Rx HYDROcodone/APAP 10-325 [[place] 1 each PO Q8HR PRN #7 tablet 09/28/16 11/28/16 Unknown Rx 10-325 mg TAB] Ketorolac [Toradol] 10 mg PO Q6H PRN #20 tablet 09/28/16 11/28/16 Unknown Rx Acetaminophen [Shake That Ache] 500 mg PO QID PRN #30 tablet 11/28/16 Unknown Rx Cyclobenzaprine HCl [Flexeril 5 MG 5 mg PO BID PRN #30 tab 11/28/16 Unknown Rx TAB] ED Physical Exam - General Limitations: No Limitations General appearance: alert, in no apparent distress - Head Head exam: Present: atraumatic, normocephalic - Eye Eye exam: Present: normal appearance, PERRL, EOMI Pupils: Present: normal accommodation - ENT ENT exam: Present: mucous membranes moist - Neck Neck exam: Present: normal inspection - Respiratory Respiratory exam: Present: normal lung sounds bilaterally. Absent: respiratory distress, wheezes, rhonchi, stridor - Cardiovascular Cardiovascular Exam: Present: regular rate, normal rhythm. Absent: systolic murmur, diastolic murmur, rubs, gallop - GI/Abdominal GI/Abdominal exam: Present: soft, normal bowel sounds - Rectal Rectal exam: Present: deferred - Extremities Exam Extremities exam: Present: normal inspection, full ROM, normal capillary refill. Absent: tenderness, pedal edema, joint swelling, calf tenderness - Back Exam Back exam: Present: normal inspection. Absent: CVA tenderness (R), CVA tenderness (L), muscle spasm, paraspinal tenderness, vertebral tenderness - Expanded Back Exam Expanded Back exam: Absent: saddle anesthesia Back exam: Positive Straight Leg Raise: Right, Negative Straight Leg Raising: Left - Neurological Exam Neurological exam: Present: alert, oriented X3, CN II-XII intact - Expanded Neurological Exam Expanded Neurological exam: Absent: memory loss-recent event, tremor Patient oriented to: Present: person, place, time Speech: Present: fluid speech Cranial nerves: EOM's Intact: Normal, Gag Reflex: Normal, Tongue Deviation: Normal, Nystagmus: Normal, Facial Sensation: Normal, Facial Palsy with Forehead Movement: Normal, Facial Palsy without Forehead Movement: Normal Cerebellar function: Finger to Nose: Normal, Heel to [place]: Normal, Romberg: Normal Upper motor neuron: [place] Neglect: Normal, Pronator Drift: Normal, Babinski Sign : Normal, Sensory Extinction: Normal Sensory exam: Upper Extremity Light Touch: Normal, Upper Extremity Pin Prick: Normal, Upper Extremity Temperature: Normal, UE 2 Point Discrimination: Normal, Lower Extremity Light Touch: Normal, Lower Extremity Pin Prick: Normal, Lower Extremity Temperature: Normal, LE 2 Point Discrimination: Normal Motor strength exam: RUE: 5, LUE: 5, RLE: 5, LLE: 5 DTR: bicep (R): 2+, bicep (L): 2+, tricep (R): 2+, tricep (L): 2+, knee (R): 2+ , knee (L): 2+, ankle (R): 2+, ankle (L): 2+ Best Eye Response (Arun): (4) open spontaneously Best Motor Response (Arun): (6) obeys commands Best Verbal Response (Arun): (5) oriented Arun Total: 15 - Psychiatric Psychiatric exam: Present: normal affect, normal mood - Skin Skin exam: Present: warm, dry, intact, normal color. Absent: rash ED Course Vital Signs 11/28/16 16:44 Temperature 98.8 F Pulse Rate 69 Respiratory 16 Rate Blood Pressure 156/94 O2 Sat by Pulse 95 Oximetry ED Medical Decision Making - Radiology Data Radiology results: image reviewed interpreted by me: no change from previous lumbar xrays no acute fracture - Medical Decision Making pt is a 61 y/o w/m with hx as noted in chart who presents for lumbar pain radiating right thigh , s/p fall from bench 1 day ago pt endorses " the fall aggravated my back" this pain is similar in location and intesity to usual exacerbated 4/10 aching burning radiating to right thigh, pt remains ambulatory to baseline there is no weakness no paresthesia no tingling no saddle numbness no decrease or loss of bowel or bladder function , inspection no deformity no reythema no edema no ecchymosis no stepoff mild posterior vertebral point tenderness no paraspinus muscle tenderness to deep palpation, pos straight leg right sitting, simulated axial rotation and loading reproduces pain , pain is improved with toradol given in ed to 2/10 pt has tramadol at home will rx tylenol and flexeril prn pain and spasm pt will follow up with primary care next week , pt given back exercises instructions , pt verbalized understanding and agreement with discharge plan. pt to home via pov and family member at this time. Critical care attestation.: If time is entered above; I have spent that time in minutes in the direct care of this critically ill patient, excluding procedure time. ED Disposition Clinical Impression: Lumbar strain Qualifiers: Encounter type: sequela Qualified Code(s): S39.012S - Strain of muscle, fascia and tendon of lower back, sequela Chronic low back pain with right-sided sciatica Qualifiers: Back pain laterality: right Qualified Code(s): M54.41 - Lumbago with sciatica, right side; G89.29 - Other chronic pain Disposition: TO HOME OR SELFCARE Is pt being admited?: No Does the pt Need Aspirin: No Condition: Good Instructions: Low Back Strain (ED) Prescriptions: Acetaminophen [Shake That Ache] 500 mg PO QID PRN #30 tablet PRN Reason: pain Cyclobenzaprine HCl [Flexeril 5 MG TAB] 5 mg PO BID PRN #30 tab PRN Reason: Spasms Referrals: PRIMARY CARE, [Primary Care Provider] - 3-5 Days Forms: Work/School Release Form(ED) Time of Disposition: 21:15
[2016-11-28 21:27] VITALS: BP 165/83
--- NOTE | 2016-11-29 09:26 | XRay Report ---
LUMBAR SPINE THREE VIEWS: 11/28/16 16:27:00 CLINICAL: Fall and back pain. COMPARISON: 09/21/16 FINDINGS: Normal vertebral body height, alignment and disk spaces. Small anterior osteophytes at L3-4 and L4-5. The pedicles are intact. No fracture. Mild calcification of the abdominal aorta. IMPRESSION: Mild degenerative changes no acute bony injury.
== END 2016-11-28 21:30 | disposition home or self-care (01) ==
LOC: ED 16:27
DX: S39.012A Strain of muscle, fascia and tendon of lower back, initial encounter (principal); G89.29 Other chronic pain; M54.41 Lumbago with sciatica, right side; I10 Essential (primary) hypertension; F17.210 Nicotine dependence, cigarettes, uncomplicated; F41.9 Anxiety disorder, unspecified; F32.9 Major depressive disorder, single episode, unspecified; M19.90 Unspecified osteoarthritis, unspecified site; Z88.8 Allergy status to other drugs, medicaments and biological substances; W19.XXXA Unspecified fall, initial encounter; Y93.89 Activity, other specified; Y92.89 Other specified places as the place of occurrence of the external cause; Y99.8 Other external cause status
CPT/HCPCS: 72100; 96372; 99283; J1885

== ENCOUNTER 2017-02-01 10:11 | Emergency (ER) | payer MEDICAID ==
[2017-02-01 10:46] LABS: Urine Drugs of Abuse Note Disclamer
[2017-02-01 10:55] LABS: Hematocrit 36.5 % (35.5-45.6); Hemoglobin 11.9 gm/dl (11.8-15.2); Mean Corpuscular HGB Conc 33 % (32-34); Mean Corpuscular Hemoglobin 27 pg (28-32); Mean Corpuscular Volume 83 fl (84-94); Red Blood Count 4.39 M/mm3 (3.65-5.03); Red Cell Distribution Width 16.1 % (13.2-15.2); White Blood Count 3.3 K/mm3 (4.5-11.0)
[2017-02-01 10:58] LABS: WBC,Urine < 1.0 /HPF (0.0-6.0)
[2017-02-01 11:11] LABS: Anion Gap 14 mmol/L; BUN/Creatinine Ratio 21.11; Blood Urea Nitrogen 19 mg/dL (9-20); Calcium 8.4 mg/dL (8.4-10.2); Carbon Dioxide 29 mmol/L (22-30); Chloride 102.5 mmol/L (98-107); Glucose 111 mg/dL (75-100); Potassium 4.1 mmol/L (3.6-5.0); Sodium 141 mmol/L (137-145)
[2017-02-01 11:13] LABS: Bilirubin,Urine NEG (Negative); Blood,Urine NEG (Negative); Ketones,Urine NEG (Negative); Leukocyte Esterase,Urine NEG (Negative); Nitrite,Urine NEG (Negative); Protein,Urine <15 mg/dL mg/dL (Negative)
[2017-02-01 11:18] LABS: Platelet Count 86 K/mm3 (140-440)
[2017-02-01 11:51] LABS: Basophils % (Manual) 0 % (0.0-1.8); Blastocytes % (Manual) 0 %
[2017-02-01 11:52] LABS: Anisocytosis Few; Diff Status Complete
[2017-02-01] MEDS ORDERED: TRIPLE ANTIBIOTIC TP ONE ×2 (12:07→12:53)
--- NOTE | 2017-02-01 13:12 | Emergency Department Report ---
ED Psych HPI - General Chief Complaint: Psych Stated Complaint: SUICIDE ATTEMPT Time Seen by Provider: 02/01/17 11:01 Source: patient, police, EMS Mode of arrival: Stretcher Limitations: No Limitations - History of Present Illness Initial Comments: 61-year-old male with a past medical history of bipolar, PTSD, arthritis, hypertension, and depression presents to the hospital complains of suicidal ideation and self stimulating behavior. Patient states he has not taken his psychiatric medications 1 week. He lives in [facility]. He states that despite pain them monthly he only gets fed once a day. He is fed hotdogs, baloney sandwiches, and chips. He will not take his medication because he doesn 't feel like he has enough food in his system to take it. This morning he began feeling more depressed and therefore his left forearm multiple times. He complains of feeling suicidal prior to arrival. He has hallucinations "sometimes" but denies them currently. Patient states last tetanus shot was approximately 8 years ago - Related Data Home Medications Medication Instructions Recorded Confirmed Last Taken clonazePAM [KlonoPIN] 2 mg PO BID 10/09/14 02/01/17 11/28/16 Divalproex ER [DepaKOTE ER] 2,500 mg PO QDAY 02/01/17 02/01/17 Unknown Venlafaxine HCl [Effexor Xr] 150 mg PO DAILY 02/01/17 02/01/17 Unknown Venlafaxine [Effexor] 75 mg PO DAILY 02/01/17 02/01/17 Unknown clonazePAM [KlonoPIN] 2 mg PO TID 02/01/17 02/01/17 Unknown Previous Rx's Medication Instructions Recorded Last Taken Type Bupropion HCl [Wellbutrin XL] 300 mg PO QAM #30 tab.er.24h 09/10/14 3 Days Ago Rx Allergies Allergy/AdvReac Type Severity Reaction Status Date / Time buspirone HCl [From BuSpar] AdvReac PSYCHOTIC Verified 10/01/16 13:41 haloperidol [From Haldol] AdvReac HANDS Verified 10/01/16 13:41 SWELL / PSYCHOTIC haloperidol lactate AdvReac HANDS Verified 10/01/16 13:41 [From Haldol] SWELL / PSYCHOTIC olanzapine [From Zyprexa] AdvReac PSYCHOTIC Verified 10/01/16 13:41 quetiapine fumarate AdvReac PSYCHOTIC Verified 10/01/16 13:41 [From Seroquel] ED Review of Systems ROS: Stated complaint: SUICIDE ATTEMPT Other details as noted in HPI Comment: All other systems reviewed and negative Other: Constitutional: No fevers chills Eyes: No eye pain visual changes ENT: No ear pain or throat pain Neck: Denies pain Respiratory: Denies cough wheezing shortness of breath Cardiovascular: Denies chest pain, palpitations, syncope GI: Denies abdominal pain, nausea, vomiting, diarrhea : Denies dysuria Musculoskeletal: Denies back pain Skin: As per HPI Neurologic: Denies headache, numbness, weakness Psychiatric: Denies suicidal ideation, hallucinations ED Past Medical Hx - Past Medical History Previous Medical History?: Yes Hx Hypertension: Yes Hx Arthritis: Yes Hx Psychiatric Treatment: Yes (anxiety, ptsd, depression) Additional medical history: CHRONIC BACK PAIN. HARD OF HEARING. BULGING DISCS - Surgical History Past Surgical History?: Yes Additional Surgical History: L leg surgery (1994) - Social History Smoking Status: Current Every Day Smoker - Medications Home Medications: Home Medications Medication Instructions Recorded Confirmed Last Taken Type Bupropion HCl [Wellbutrin XL] 300 mg PO QAM #30 tab.er.24h 09/10/14 02/01/17 3 Days Ago Rx clonazePAM [KlonoPIN] 2 mg PO BID 10/09/14 02/01/17 11/28/16 History Divalproex ER [DepaKOTE ER] 2,500 mg PO QDAY 02/01/17 02/01/17 Unknown History Venlafaxine HCl [Effexor Xr] 150 mg PO DAILY 02/01/17 02/01/17 Unknown History Venlafaxine [Effexor] 75 mg PO DAILY 02/01/17 02/01/17 Unknown History clonazePAM [KlonoPIN] 2 mg PO TID 02/01/17 02/01/17 Unknown History ED Physical Exam - General Limitations: Other - Other Other exam information: General: No limitations, patient is alert in no acute distress Head exam: Atraumatic, normocephalic Eyes exam: Normal appearance ENT: Moist mucous membrane, normal oropharynx Neck exam: Normal inspection, full range of motion, no meningismus nontender Respiratory exam: Clear to auscultation bilateral, no wheezes, rales, crackles Cardiovascular: Normal rate and rhythm Abdomen: Soft, nondistended, and nontender, with normal bowel sounds, no rebound, or guarding Extremity: Full range of motion normal inspection no deformity Back: Normal Inspection, full range of motion, no tenderness Neurologic: Alert, oriented x3, cranial nerves intact, no motor or sensory deficit Psychiatric: normal affect, normal mood Skin: Multiple superficial linear lacerations to left forearm not requiring stitches. No active bleeding ED Course Vital Signs 02/01/17 02/01/17 10:22 11:40 Temperature 98.5 F Pulse Rate 74 Respiratory 19 19 Rate Blood Pressure 157/92 O2 Sat by Pulse 100 Oximetry - Consultations Consultation #1: 02/01/17 Case discussed with state game warden is Dr. Kang requiring patient's new thrombocytopenia. He is suggests to contact the pharmacy regarding possible medications that might be the culprit ED Medical Decision Making - Lab Data Result diagrams: 02/01/17 10:40 02/01/17 10:40 Lab Results 02/01/17 02/01/17 02/01/17 Range/Units 10:34 10:34 10:40 WBC (4.5-11.0) K/mm3 RBC (3.65-5.03) M/mm3 Hgb (11.8-15.2) gm/dl Hct (35.5-45.6) % MCV (84-94) fl MCH (28-32) pg MCHC (32-34) % RDW (13.2-15.2) % Plt Count (140-440) K/mm3 [place] % (Auto) Add Manual Diff Total Counted Seg Neuts % (Manual) (40.0-70.0) % Band Neutrophils % % Lymphocytes % (Manual) (13.4-35.0) % Reactive Lymphs % (Man) % Monocytes % (Manual) (0.0-7.3) % Eosinophils % (Manual) (0.0-4.3) % Basophils % (Manual) (0.0-1.8) % Metamyelocytes % % Myelocytes % % Promyelocytes % % Blast Cells % % Nucleated RBC % Seg Neutrophils # Man (1.8-7.7) K/mm3 Band Neutrophils # K/mm3 Lymphocytes # (Manual) (1.2-5.4) K/mm3 Abs React Lymphs (Man) K/mm3 Monocytes # (Manual) (0.0-0.8) K/mm3 Eosinophils # (Manual) (0.0-0.4) K/mm3 Basophils # (Manual) (0.0-0.1) K/mm3 Metamyelocytes # K/mm3 Myelocytes # K/mm3 Promyelocytes # K/mm3 Blast Cells # K/mm3 WBC Morphology Hypersegmented Neuts Hyposegmented Neuts Hypogranular Neuts Smudge Cells Toxic Granulation Toxic Vacuolation Dohle Bodies Pelger-Huet Anomaly Luisa Rods Platelet Estimate Clumped Platelets Plt Clumps, EDTA Large Platelets Giant Platelets Platelet Satelliting Plt Morphology Comment RBC Morphology Dimorphic RBCs Polychromasia Hypochromasia Poikilocytosis Anisocytosis Microcytosis Macrocytosis Spherocytes Pappenheimer Bodies Sickle Cells Target Cells Tear Drop Cells Ovalocytes Helmet Cells [place] Bodies [place] Rings Ever Cells Bite Cells Crenated Cell Elliptocytes Acanthocytes (Spur) Rouleaux Hemoglobin C Crystals Schistocytes Malaria parasites Tee Bodies Hem Pathologist Commnt Sodium 141 (137-145) mmol/L Potassium 4.1 (3.6-5.0) mmol/L Chloride 102.5 (98-107) mmol/L Carbon Dioxide 29 (22-30) mmol/L Anion Gap 14 mmol/L BUN 19 (9-20) mg/dL Creatinine 0.9 (0.8-1.5) mg/dL Estimated GFR > 60 ml/min BUN/Creatinine Ratio 21.11 % Glucose 111 H (75-100) mg/dL Calcium 8.4 (8.4-10.2) mg/dL Total Bilirubin (0.1-1.2) mg/dL Direct Bilirubin (0-0.2) mg/dL Indirect Bilirubin mg/dL AST (5-40) units/L ALT (7-56) units/L Alkaline Phosphatase (35-129) units/L Total Protein (6.3-8.2) g/dL Albumin (3.9-5) g/dL Albumin/Globulin Ratio % Urine Color Yellow (Yellow) Urine Turbidity Clear (Clear) Urine pH 8.0 H (5.0-7.0) Ur Specific [place] 1.017 (1.003-1.030) Urine Protein <15 mg/dl (Negative) mg/dL Urine Glucose (UA) Neg (Negative) mg/dL Urine Ketones Neg (Negative) mg/dL Urine Blood Neg (Negative) Urine Nitrite Neg (Negative) Ur Reducing Substances Not Reportable Urine Bilirubin Neg (Negative) Urine Ictotest Not Reportable Urine Urobilinogen 4.0 (<2.0) mg/dL Ur Leukocyte Esterase Neg (Negative) Urine WBC (Auto) < 1.0 (0.0-6.0) /HPF Urine RBC (Auto) 3.0 (0.0-6.0) /HPF Urine Opiates Screen Presumptive negative Urine Methadone Screen Presumptive negative Ur Barbiturates Screen Presumptive negative Valproic Acid (50-100) ug/mL Ur Phencyclidine Scrn Presumptive negative Ur Amphetamines Screen Presumptive negative U Benzodiazepines Scrn Presumptive negative Urine Cocaine Screen Presumptive negative U Marijuana (THC) Screen Presumptive negative Drugs of Abuse Note Disclamer Plasma/Serum Alcohol (0-0.07) gm% 02/01/17 02/01/17 02/01/17 Range/Units 10:40 10:40 10:40 WBC 3.3 L (4.5-11.0) K/mm3 RBC 4.39 (3.65-5.03) M/mm3 Hgb 11.9 (11.8-15.2) gm/dl Hct 36.5 (35.5-45.6) % MCV 83 L (84-94) fl MCH 27 L (28-32) pg MCHC 33 (32-34) % RDW 16.1 H (13.2-15.2) % Plt Count 86 L (140-440) K/mm3 [place] % (Auto) Binder And Wrapper Packer Add Manual Diff Complete Total Counted 100 Seg Neuts % (Manual) 69.0 (40.0-70.0) % Band Neutrophils % 6.0 % Lymphocytes % (Manual) 12.0 L (13.4-35.0) % Reactive Lymphs % (Man) 0 % Monocytes % (Manual) 11.0 H (0.0-7.3) % Eosinophils % (Manual) 2.0 (0.0-4.3) % Basophils % (Manual) 0 (0.0-1.8) % Metamyelocytes % 0 % Myelocytes % 0 % Promyelocytes % 0 % Blast Cells % 0 % Nucleated RBC % Not Reportable Seg Neutrophils # Man 2.3 (1.8-7.7) K/mm3 Band Neutrophils # 0.2 K/mm3 Lymphocytes # (Manual) 0.4 L (1.2-5.4) K/mm3 Abs React Lymphs (Man) 0.0 K/mm3 Monocytes # (Manual) 0.4 (0.0-0.8) K/mm3 Eosinophils # (Manual) 0.1 (0.0-0.4) K/mm3 Basophils # (Manual) 0.0 (0.0-0.1) K/mm3 Metamyelocytes # 0.0 K/mm3 Myelocytes # 0.0 K/mm3 Promyelocytes # 0.0 K/mm3 Blast Cells # 0.0 K/mm3 WBC Morphology Not Reportable Hypersegmented Neuts Not Reportable Hyposegmented Neuts Not Reportable Hypogranular Neuts Not Reportable Smudge Cells Not Reportable Toxic Granulation Not Reportable Toxic Vacuolation Not Reportable Dohle Bodies Not Reportable Pelger-Huet Anomaly Not Reportable Luisa Rods Not Reportable Platelet Estimate Not Reportable Clumped Platelets Not Reportable Plt Clumps, EDTA Not Reportable Large Platelets Not Reportable Giant Platelets Not Reportable Platelet Satelliting Not Reportable Plt Morphology Comment Not Reportable RBC Morphology Not Reportable Dimorphic RBCs Not Reportable Polychromasia Not Reportable Hypochromasia Not Reportable Poikilocytosis Not Reportable Anisocytosis Few Microcytosis Not Reportable Macrocytosis Not Reportable Spherocytes Not Reportable Pappenheimer Bodies Not Reportable Sickle Cells Not Reportable Target Cells Not Reportable Tear Drop Cells Not Reportable Ovalocytes Not Reportable Helmet Cells Not Reportable [place] Bodies Not Reportable [place] Rings Not Reportable [place] Cells Not Reportable Bite Cells Not Reportable Crenated Cell Not Reportable Elliptocytes Not Reportable Acanthocytes (Spur) Not Reportable Rouleaux Not Reportable Hemoglobin C Crystals Not Reportable Schistocytes Not Reportable Malaria parasites Not Reportable Tee Bodies Not Reportable Hem Pathologist Commnt No Sodium (137-145) mmol/L Potassium (3.6-5.0) mmol/L Chloride (98-107) mmol/L Carbon Dioxide (22-30) mmol/L Anion Gap mmol/L BUN (9-20) mg/dL Creatinine (0.8-1.5) mg/dL Estimated GFR ml/min BUN/Creatinine Ratio % Glucose (75-100) mg/dL Calcium (8.4-10.2) mg/dL Total Bilirubin 0.40 (0.1-1.2) mg/dL Direct Bilirubin < 0.2 (0-0.2) mg/dL Indirect Bilirubin 0.2 mg/dL AST 9 (5-40) units/L ALT 8 (7-56) units/L Alkaline Phosphatase 35 (35-129) units/L Total Protein 5.8 L (6.3-8.2) g/dL Albumin 3.7 L (3.9-5) g/dL Albumin/Globulin Ratio 1.8 % Urine Color (Yellow) Urine Turbidity (Clear) Urine pH (5.0-7.0) Ur Specific [place] (1.003-1.030) Urine Protein (Negative) mg/dL Urine Glucose (UA) (Negative) mg/dL Urine Ketones (Negative) mg/dL Urine Blood (Negative) Urine Nitrite (Negative) Ur Reducing Substances Urine Bilirubin (Negative) Urine Ictotest Urine Urobilinogen (<2.0) mg/dL Ur Leukocyte Esterase (Negative) Urine WBC (Auto) (0.0-6.0) /HPF Urine RBC (Auto) (0.0-6.0) /HPF Urine Opiates Screen Urine Methadone Screen Ur Barbiturates Screen Valproic Acid (50-100) ug/mL Ur Phencyclidine Scrn Ur Amphetamines Screen U Benzodiazepines Scrn Urine Cocaine Screen U Marijuana (THC) Screen Drugs of Abuse Note Plasma/Serum Alcohol < 0.01 (0-0.07) gm% 02/01/17 Range/Units 11:02 WBC (4.5-11.0) K/mm3 RBC (3.65-5.03) M/mm3 Hgb (11.8-15.2) gm/dl Hct (35.5-45.6) % MCV (84-94) fl MCH (28-32) pg MCHC (32-34) % RDW (13.2-15.2) % Plt Count (140-440) K/mm3 [place] % (Auto) Add Manual Diff Total Counted Seg Neuts % (Manual) (40.0-70.0) % Band Neutrophils % % Lymphocytes % (Manual) (13.4-35.0) % Reactive Lymphs % (Man) % Monocytes % (Manual) (0.0-7.3) % Eosinophils % (Manual) (0.0-4.3) % Basophils % (Manual) (0.0-1.8) % Metamyelocytes % % Myelocytes % % Promyelocytes % % Blast Cells % % Nucleated RBC % Seg Neutrophils # Man (1.8-7.7) K/mm3 Band Neutrophils # K/mm3 Lymphocytes # (Manual) (1.2-5.4) K/mm3 Abs React Lymphs (Man) K/mm3 Monocytes # (Manual) (0.0-0.8) K/mm3 Eosinophils # (Manual) (0.0-0.4) K/mm3 Basophils # (Manual) (0.0-0.1) K/mm3 Metamyelocytes # K/mm3 Myelocytes # K/mm3 Promyelocytes # K/mm3 Blast Cells # K/mm3 WBC Morphology Hypersegmented Neuts Hyposegmented Neuts Hypogranular Neuts Smudge Cells Toxic Granulation Toxic Vacuolation Dohle Bodies Pelger-Huet Anomaly Luisa Rods Platelet Estimate Clumped Platelets Plt Clumps, EDTA Large Platelets Giant Platelets Platelet Satelliting Plt Morphology Comment RBC Morphology Dimorphic RBCs Polychromasia Hypochromasia Poikilocytosis Anisocytosis Microcytosis Macrocytosis Spherocytes Pappenheimer Bodies Sickle Cells Target Cells Tear Drop Cells Ovalocytes Helmet Cells [place] Bodies [place] Rings Ever Cells Bite Cells Crenated Cell Elliptocytes Acanthocytes (Spur) Rouleaux Hemoglobin C Crystals Schistocytes Malaria parasites Tee Bodies Hem Pathologist Commnt Sodium (137-145) mmol/L Potassium (3.6-5.0) mmol/L Chloride (98-107) mmol/L Carbon Dioxide (22-30) mmol/L Anion Gap mmol/L BUN (9-20) mg/dL Creatinine (0.8-1.5) mg/dL Estimated GFR ml/min BUN/Creatinine Ratio % Glucose (75-100) mg/dL Calcium (8.4-10.2) mg/dL Total Bilirubin (0.1-1.2) mg/dL Direct Bilirubin (0-0.2) mg/dL Indirect Bilirubin mg/dL AST (5-40) units/L ALT (7-56) units/L Alkaline Phosphatase (35-129) units/L Total Protein (6.3-8.2) g/dL Albumin (3.9-5) g/dL Albumin/Globulin Ratio % Urine Color (Yellow) Urine Turbidity (Clear) Urine pH (5.0-7.0) Ur Specific [place] (1.003-1.030) Urine Protein (Negative) mg/dL Urine Glucose (UA) (Negative) mg/dL Urine Ketones (Negative) mg/dL Urine Blood (Negative) Urine Nitrite (Negative) Ur Reducing Substances Urine Bilirubin (Negative) Urine Ictotest Urine Urobilinogen (<2.0) mg/dL Ur Leukocyte Esterase (Negative) Urine WBC (Auto) (0.0-6.0) /HPF Urine RBC (Auto) (0.0-6.0) /HPF Urine Opiates Screen Urine Methadone Screen Ur Barbiturates Screen Valproic Acid 15.5 L (50-100) ug/mL Ur Phencyclidine Scrn Ur Amphetamines Screen U Benzodiazepines Scrn Urine Cocaine Screen U Marijuana (THC) Screen Drugs of Abuse Note Plasma/Serum Alcohol (0-0.07) gm% - Medical Decision Making Bacitracin applied to the wounds with gauze dressing. 1013 and transfer forms have been signed. Pharmacy suggests that all of patient's prescribed meds may cause thrombocytopenia. Medications will be held at this time pending psychiatrist review. No signs of active bleeding at this time. Patient medically clear for psychiatric admission - Differential Diagnosis borderline, psychosis, suicidal ideation, self mutilating behavior Critical Care Time: No Critical care attestation.: If time is entered above; I have spent that time in minutes in the direct care of this critically ill patient, excluding procedure time. ED Disposition Clinical Impression: Depression, Suicidal ideation, Self mutilating behavior, Thrombocytopenia, Medical clearance for psychiatric admission Disposition: [id number]/TX-[id number] PSY HOSP/PSY UNIT Is pt being admited?: No Condition: Stable Time of Disposition: 16:41 (awaiting acceptance)
[2017-02-01 13:31] LABS: Alanine Aminotransferase 8 units/L (7-56); Albumin 3.7 g/dL (3.9-5); Albumin/Globulin Ratio 1.8 %; Alkaline Phosphatase 35 units/L (35-129); Total Protein 5.8 g/dL (6.3-8.2)
[2017-02-01 13:43] LABS: Bilirubin,Direct < 0.2 mg/dL (0-0.2); Bilirubin,Indirect 0.2 mg/dL
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
[2017-02-01] MEDS ORDERED: ATIVAN IM ONE (17:25)
[2017-02-02] MEDS ORDERED: MOTRIN ONE (02:49)
[2017-02-02] MEDS ORDERED: ATIVAN ONE (02:51)
[2017-02-02] MEDS ORDERED: MOTRIN PO ONE (02:57)
[2017-02-02] MEDS ORDERED: ATIVAN IM ONE (02:57)
[2017-02-02] MEDS: EFFEXOR XR PO SCH ×2 (11:05)
--- NOTE | 2017-02-02 15:00 | Progress Note ---
Subjective - Reason for Consult Consult date: 02/02/17 Reason for consult: Psychiatry Follow-up - Chief Complaint Chief complaint: "I want another place to stay" 61-year-old male with a past medical history of bipolar, PTSD, arthritis, hypertension, and depression presents to the hospital after cutting himself 5-6 times on his left forearm. Today patient is calm and cooperative during assessment. He stated that he want another place to stay. He currently reside at [place]. He stated that he cut his wrist in "anger" prior to coming to [facility]. He stated today that he should not done that. He stated that the staff at [place] only feed him once a day. He admitted that he have attempted suicide in the past. He denies SI/HI's and AVH's, but rate his depression 6/10, with 10 being the worse. He stated that he have taken Effexor and Effexor XR with no side effects in the past. Mental Status Exam - Vital signs Last Vital Signs Temp 98.8 F 02/02/17 09:09 Pulse 65 02/02/17 09:09 Resp 16 02/02/17 09:10 BP 165/87 02/02/17 09:09 Pulse Ox 98 02/02/17 09:10 - Exam Narrative exam: MSE: Appearance: calm, cooperative Behavior: regular eye contact Speech: slow rate and tone Mood: "okay" Affect: labile Thought Process: circumstantial Thought Content: denies SI/HI's and AVH's Motor Activity: lying in bed Cognition: A/Ox 3 Insight: limited Judgment: limited Assessment and Plan Impression: bipolar disorder, current episode depressed, PTSD. Today patient is calm and cooperative during assessment.PLT 86. Recommendation/Plan: Continue 1013 and transfer to inpatient psychiatric facility. Continue Effexor XR 225mg qam and consider another mood stabilizer. In order to avoid withdrawal from benzos, will continue klonopin 1mg tid. Given the half life of klonopin and length of use, it is possible to have withdrawal symptoms days from his last dose. After discussion with the ER physician, Dr. Espinoza, the depakote will be held and he will be observed closely. A CBC should be repeated if his stay is prolonged waiting on placement. Per Dr. Espinoza, the blood counts can be addressed on an outpatient basis.
[2017-02-03] MEDS ORDERED: AMBIEN PO ONE (03:34)
[2017-02-03] MEDS ORDERED: MOTRIN PO ONE ×2 (03:35→03:36)
[2017-02-03] MEDS ORDERED: AMBIEN ONE (03:36)
[2017-02-03] MEDS: EFFEXOR XR PO SCH ×2 (10:14)
--- NOTE | 2017-02-03 13:19 | Progress Note ---
Subjective - Reason for Consult Consult date: 02/03/17 Reason for consult: Psychiatry Follow-up - Chief Complaint Chief complaint: "When can I leave" 61-year-old male with a past medical history of bipolar, PTSD, arthritis, hypertension, and depression presents to the hospital after cutting himself 5-6 times on his left forearm. Today patient is calm and cooperative during assessment. He stated that he would like to leave the hospital. He stated that he made an mistake cutting himself on his wrist. He stated, "It's a superficial wound." He denies SI/HI's and AVH's. He rate his depression 5/10 with 10 being the worse. He denies any side effect of the Effexor. Mental Status Exam - Vital signs Last Vital Signs Temp 99.4 F 02/03/17 03:52 Pulse 98 H 02/03/17 03:52 Resp 16 02/03/17 08:40 BP 142/84 02/03/17 03:52 Pulse Ox 98 02/03/17 08:40 - Exam Narrative exam: MSE: Appearance: calm, cooperative Behavior: regular eye contact Speech: regular rate and tone Mood: "okay" Affect: congruent to mood Thought Process: circumstantial Thought Content: denies SI/HI's and AVH's Motor Activity: lying in bed Cognition: A/Ox 3 Insight: variable Judgment: variable Assessment and Plan Impression: bipolar disorder, current episode depressed, PTSD. Today patient is calm and cooperative during assessment. Recommendation/Plan: Continue 1013 and transfer to inpatient psychiatric facility. Continue Effexor XR 225mg qam and Klonopin 1 mg PO TID. Start Depakote 1000 mg PO QAm and 1500 mg PO HS. Discussed possible suicidality/ medication induced efrain reference Effexor. CBC w/diff ordered.
[2017-02-03] MEDS ORDERED: TYLENOL ONE (14:00)
[2017-02-03] MEDS ORDERED: TYLENOL PO ONE (14:06)
[2017-02-03 16:46] LABS: Hematocrit 41.2 % (35.5-45.6); Hemoglobin 13.9 gm/dl (11.8-15.2); Mean Corpuscular HGB Conc 34 % (32-34); Mean Corpuscular Hemoglobin 28 pg (28-32); Mean Corpuscular Volume 82 fl (84-94); Platelet Count 117 K/mm3 (140-440); Red Blood Count 5.03 M/mm3 (3.65-5.03); Red Cell Distribution Width 15.6 % (13.2-15.2); White Blood Count 3.1 K/mm3 (4.5-11.0)
[2017-02-03 17:50] LABS: Basophils % (Manual) 0 % (0.0-1.8); Blastocytes % (Manual) 0 %
[2017-02-03 17:51] LABS: Platelet Estimate Consistent w Auto
[2017-02-03 17:52] LABS: Anisocytosis Few; Diff Status Complete
[2017-02-04] MEDS: EFFEXOR XR PO SCH ×2 (11:23)
--- NOTE | 2017-02-04 17:30 | Progress Note ---
Subjective - Reason for Consult Reason for consult: psych consult - Chief Complaint Chief complaint: 61-year-old male with a past medical history of bipolar, PTSD, arthritis, hypertension, and depression presents to the hospital after cutting himself 5-6 times on his left forearm. 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 He notes that "I'm not depressed or suicidal." He denies any SI/HI/AH/ VH. He is tolerating the medications. He notes that he could use better sleep. Currently is is occupied with trying to obtain another place to live after he goes home. Mental Status Exam - Vital signs Last Vital Signs Temp 98.4 F 02/04/17 16:09 Pulse 96 H 02/04/17 16:09 Resp 18 02/04/17 16:09 BP 157/99 02/04/17 16:09 Pulse Ox 96 02/04/17 16:09 - Exam Orientation: time, place, person Affect: normal Mood: appropriate Thought Process: Intact Perceptions: none Speech: normal rate and pattern Concentration: distractible Motor activity: normal Level of consciousness: alert Memory: Intact Mini mental status exam(if necessary): 24-30 Assessment and Plan 61-year-old male with a past medical history of bipolar, PTSD, arthritis, hypertension, and depression presents to the hospital after cutting himself 5-6 times on his left forearm. Currently patient notes that he is doing well and not depressed. DX: Bipolar and PTSD Plan: mood- continue treatment as directed- currently tolerating depakote, patient will need contact with his ACT team on an outpt basis to work on dispo planning. Will look at possible d/c from ER tomorrow after appropriate dispo planning.
[2017-02-04 19:32] VITALS: BP 168/103
== END 2017-02-04 19:32 ==
LOC: ED 10:11 → EEVIPCON 10:11 → ED 02-04 19:32
DX: F32.9 Major depressive disorder, single episode, unspecified (principal); R45.851 Suicidal ideations; R46.89 Other symptoms and signs involving appearance and behavior; D69.6 Thrombocytopenia, unspecified; I10 Essential (primary) hypertension
CPT/HCPCS: 36415; 80048; 80074; 80164; 80307; 81001; 85007; 85025; 96372; 99285; G0480; J2060; 80320; A6250

== ENCOUNTER 2019-08-28 09:43 | Emergency (ER) | payer MEDICAID ==
--- NOTE | 2019-08-28 10:08 | Emergency Department Report ---
ED Psych HPI - General Stated Complaint: OUT OF KLONOPIN,WITHDRAWLS Time Seen by Provider: 08/28/19 09:56 Source: patient, EMS, old records reviewed Mode of arrival: Ambulatory Limitations: No Limitations - History of Present Illness Initial Comments: Mr. Perla is a 64-year-old male with history of anxiety disorder, bipolar disorder who presents with suicidal ideation. He has a plan to cut his wrist. He feels shaky. He has been without Klonopin for the past 3 days. He denies any pain. He states "I want to . I have a plan. But I want to live." Mr. Perla has history of previous suicide attempts. MD Complaint: suicidal ideation, feels depressed -: Gradual, days(s) (1) Associated Psychiatric Symptoms: depression, suicidal ideation History of same: Yes Quality: constant Improves With: none Worsens With: none Context: other (Has been without Klonopin for 3 days) Associated Symptoms: denies other symptoms If Self Harm: admits thoughts of, has plan - Related Data Home Medications Medication Instructions Recorded Confirmed Last Taken clonazePAM [KlonoPIN] 2 mg PO BID 10/09/14 02/01/17 11/28/16 2 MG Divalproex ER [DepaKOTE ER] 2,500 mg PO QDAY 02/01/17 02/01/17 Unknown Venlafaxine HCl [Effexor Xr] 150 mg PO DAILY 02/01/17 02/01/17 Unknown Venlafaxine [Effexor] 75 mg PO DAILY 02/01/17 02/01/17 Unknown clonazePAM [KlonoPIN] 2 mg PO TID 02/01/17 02/01/17 Unknown Previous Rx's Medication Instructions Recorded Last Taken Type Bupropion HCl [Wellbutrin XL] 300 mg PO QAM #30 tab.er.24h 09/10/14 3 Days Ago Rx ~10/27/14 Allergies Allergy/AdvReac Type Severity Reaction Status Date / Time buspirone HCl [From BuSpar] AdvReac PSYCHOTIC Verified 05/14/18 16:59 haloperidol [From Haldol] AdvReac HANDS Verified 05/14/18 16:59 SWELL / PSYCHOTIC haloperidol lactate AdvReac HANDS Verified 05/14/18 16:59 [From Haldol] SWELL / PSYCHOTIC olanzapine [From Zyprexa] AdvReac PSYCHOTIC Verified 05/14/18 16:59 quetiapine fumarate AdvReac PSYCHOTIC Verified 05/14/18 16:59 [From Seroquel] ED Review of Systems ROS: Stated complaint: OUT OF [place] Other details as noted in HPI Comment: All other systems reviewed and negative Constitutional: denies: fever, malaise Respiratory: denies: cough Cardiovascular: denies: chest pain ED Past Medical Hx - Past Medical History Previous Medical History?: Yes Hx Hypertension: Yes Hx Arthritis: Yes Hx Psychiatric Treatment: Yes (anxiety, ptsd, depression, bipolar) Additional medical history: CHRONIC BACK PAIN. HARD OF HEARING. BULGING DISCS - Surgical History Past Surgical History?: Yes Additional Surgical History: L leg surgery (1994) - Social History Smoking Status: Former Smoker (none 5 days) Substance Use Type: None (denies illicit drug use) - Medications Home Medications: Home Medications Medication Instructions Recorded Confirmed Last Taken Type Bupropion HCl [Wellbutrin XL] 300 mg PO QAM #30 tab.er.24h 09/10/14 02/01/17 3 Days Ago Rx ~10/27/14 clonazePAM [KlonoPIN] 2 mg PO BID 10/09/14 02/01/17 11/28/16 History 2 MG Divalproex ER [DepaKOTE ER] 2,500 mg PO QDAY 02/01/17 02/01/17 Unknown History Venlafaxine HCl [Effexor Xr] 150 mg PO DAILY 02/01/17 02/01/17 Unknown History Venlafaxine [Effexor] 75 mg PO DAILY 02/01/17 02/01/17 Unknown History clonazePAM [KlonoPIN] 2 mg PO TID 02/01/17 02/01/17 Unknown History ED Physical Exam - General General appearance: alert, in no apparent distress, anxious - Head Head exam: Present: atraumatic, normocephalic - Eye Eye exam: Present: normal appearance - ENT ENT exam: Present: mucous membranes moist - Neck Neck exam: Present: normal inspection, full ROM - Respiratory Respiratory exam: Present: normal lung sounds bilaterally. Absent: respiratory distress, wheezes, rales, rhonchi - Cardiovascular Cardiovascular Exam: Present: regular rate, normal rhythm, normal heart sounds. Absent: systolic murmur, diastolic murmur, rubs, gallop - GI/Abdominal GI/Abdominal exam: Present: soft, normal bowel sounds. Absent: distended, tenderness, guarding, rebound - Rectal Rectal exam: Present: deferred - Extremities Exam Extremities exam: Present: normal inspection - Back Exam Back exam: Present: normal inspection - Neurological Exam Neurological exam: Present: alert, oriented X3 - Psychiatric Psychiatric exam: Present: normal affect, anxious, suicidal ideation - Skin Skin exam: Present: warm, dry, intact, normal color. Absent: rash ED Course Vital Signs 08/28/19 10:09 Temperature 99.3 F Pulse Rate 102 H Respiratory 18 Rate Blood Pressure 128/65 O2 Sat by Pulse 94 Oximetry ED Medical Decision Making - Lab Data Result diagrams: 08/28/19 10:24 08/28/19 10:24 Laboratory Results - last 24 hr 08/28/19 08/28/19 08/28/19 10:24 10:24 10:24 WBC 6.1 RBC 4.66 Hgb 12.8 Hct 38.3 MCV 82 L MCH 28 MCHC 33 RDW 16.4 H Plt Count 185 Lymph % (Auto) 11.1 L [place] % (Auto) 7.1 Eos % (Auto) 0.1 Baso % (Auto) 0.4 Lymph # 0.7 L [place] # 0.4 Eos # 0.0 Baso # 0.0 Seg Neutrophils % 81.3 H Seg Neutrophils # 4.9 Sodium 139 Potassium 3.7 Chloride 100.1 Carbon Dioxide 26 Anion Gap 17 BUN 22 H Creatinine 0.9 Estimated GFR > 60 BUN/Creatinine Ratio 24 Glucose 125 H Calcium 9.1 Total Bilirubin 0.40 AST 13 ALT 14 Alkaline Phosphatase 44 Total Protein 6.8 Albumin 4.4 Albumin/Globulin Ratio 1.8 Urine Color Urine Turbidity Urine pH Ur Specific [place] Urine Protein Urine Glucose (UA) Urine Ketones Urine Blood Urine Nitrite Urine Bilirubin Urine Urobilinogen Ur Leukocyte Esterase Urine WBC (Auto) Urine RBC (Auto) U Epithel Cells (Auto) Amorphous Crystals Urine Mucus Salicylates < 0.3 L Urine Opiates Screen Urine Methadone Screen Acetaminophen Ur Barbiturates Screen Ur Phencyclidine Scrn Ur Amphetamines Screen U Benzodiazepines Scrn Urine Cocaine Screen U Marijuana (THC) Screen Drugs of Abuse Note Plasma/Serum Alcohol 08/28/19 08/28/19 08/28/19 10:24 10:24 10:50 WBC RBC Hgb Hct MCV MCH MCHC RDW Plt Count Lymph % (Auto) [place] % (Auto) Eos % (Auto) Baso % (Auto) Lymph # [place] # Eos # Baso # Seg Neutrophils % Seg Neutrophils # Sodium Potassium Chloride Carbon Dioxide Anion Gap BUN Creatinine Estimated GFR BUN/Creatinine Ratio Glucose Calcium Total Bilirubin AST ALT Alkaline Phosphatase Total Protein Albumin Albumin/Globulin Ratio Urine Color Yellow Urine Turbidity Hazy Urine pH 6.0 Ur Specific [place] 1.018 Urine Protein <15 mg/dl Urine Glucose (UA) Neg Urine Ketones Tr Urine Blood Neg Urine Nitrite Neg Urine Bilirubin Neg Urine Urobilinogen 2.0 Ur Leukocyte Esterase Neg Urine WBC (Auto) 3.0 Urine RBC (Auto) 4.0 U Epithel Cells (Auto) < 1.0 Amorphous Crystals Few Urine Mucus 2+ Salicylates Urine Opiates Screen Urine Methadone Screen Acetaminophen < 5.0 L Ur Barbiturates Screen Ur Phencyclidine Scrn Ur Amphetamines Screen U Benzodiazepines Scrn Urine Cocaine Screen U Marijuana (THC) Screen Drugs of Abuse Note Plasma/Serum Alcohol < 0.01 08/28/19 10:50 WBC RBC Hgb Hct MCV MCH MCHC RDW Plt Count Lymph % (Auto) [place] % (Auto) Eos % (Auto) Baso % (Auto) Lymph # [place] # Eos # Baso # Seg Neutrophils % Seg Neutrophils # Sodium Potassium Chloride Carbon Dioxide Anion Gap BUN Creatinine Estimated GFR BUN/Creatinine Ratio Glucose Calcium Total Bilirubin AST ALT Alkaline Phosphatase Total Protein Albumin Albumin/Globulin Ratio Urine Color Urine Turbidity Urine pH Ur Specific [place] Urine Protein Urine Glucose (UA) Urine Ketones Urine Blood Urine Nitrite Urine Bilirubin Urine Urobilinogen Ur Leukocyte Esterase Urine WBC (Auto) Urine RBC (Auto) U Epithel Cells (Auto) Amorphous Crystals Urine Mucus Salicylates Urine Opiates Screen Presumptive negative Urine Methadone Screen Presumptive negative Acetaminophen Ur Barbiturates Screen Presumptive negative Ur Phencyclidine Scrn Presumptive negative Ur Amphetamines Screen Presumptive negative U Benzodiazepines Scrn Presumptive negative Urine Cocaine Screen Presumptive negative U Marijuana (THC) Screen Presumptive negative Drugs of Abuse Note Disclamer Plasma/Serum Alcohol - Medical Decision Making Mr. Perla is a 61-year-old male with history of anxiety disorder and bipolar disorder who presents with suicidal ideation plan to cut his wrist. He is medically clear for psychiatric care. I have placed Mr. Perla on involuntary hold utilizing 1013 protocol. I have reviewed the labs obtained: CBC chemistry serum toxicology urine toxicology urinalysis all within normal limits Critical care attestation.: If time is entered above; I have spent that time in minutes in the direct care of this critically ill patient, excluding procedure time. ED Disposition Clinical Impression: Suicidal ideation, Anxiety Condition: Stable Referrals: PRIMARY CARE, [Primary Care Provider] - 3-5 Days
[2019-08-28] MEDS ORDERED: LORazepam 1 MG TAB PO ONE (10:14)
[2019-08-28 10:44] LABS: Basophils % (Auto) 0.4 % (0.0-1.8); Eosinophils % (Auto) 0.1 % (0.0-4.3); Hematocrit 38.3 % (35.5-45.6); Hemoglobin 12.8 gm/dl (11.8-15.2); Lymphocytes # (Auto) 0.7 K/mm3 (1.2-5.4); Lymphocytes % (Auto) 11.1 % (13.4-35.0); Mean Corpuscular HGB Conc 33 % (32-34); Mean Corpuscular Volume 82 fl (84-94); Monocytes # (Auto) 0.4 K/mm3 (0.0-0.8); Monocytes % (Auto) 7.1 % (0.0-7.3); Platelet Count 185 K/mm3 (140-440); Red Blood Count 4.66 M/mm3 (3.65-5.03); Red Cell Distribution Width 16.4 % (13.2-15.2)
[2019-08-28 11:09] LABS: Alanine Aminotransferase 14 units/L (7-56); Albumin 4.4 g/dL (3.9-5); BUN/Creatinine Ratio 24; Blood Urea Nitrogen 22 mg/dL (9-20); Calcium 9.1 mg/dL (8.4-10.2); Hemolysis Index 4
[2019-08-28 11:10] LABS: Amorphous Crystals,Urine Few; Bilirubin,Urine NEG (Negative); Blood,Urine NEG (Negative); Color,Urine Yellow (Yellow); Mucus,Urine 2+ /HPF; Protein,Urine <15 mg/dL mg/dL (Negative)
[2019-08-28 11:12] LABS: Amphetamine Screen,Urine PRESUMPTIVE NEGATIVE; Benzodiazepines Screen,Urine PRESUMPTIVE NEGATIVE; Cannabinoid Screen,Urine PRESUMPTIVE NEGATIVE; Cocaine Screen,Urine PRESUMPTIVE NEGATIVE; Methadone Screen,Urine PRESUMPTIVE NEGATIVE; Opiate Screen,Urine PRESUMPTIVE NEGATIVE
[2019-08-28 20:24] VITALS: BP 126/80
== END 2019-08-28 22:00 ==
LOC: ED 09:43
DX: R45.851 Suicidal ideations (principal); F41.9 Anxiety disorder, unspecified; F31.9 Bipolar disorder, unspecified; I10 Essential (primary) hypertension; M19.90 Unspecified osteoarthritis, unspecified site; Z98.890 Other specified postprocedural states; Z87.891 Personal history of nicotine dependence; Z79.899 Other long term (current) drug therapy; Z88.8 Allergy status to other drugs, medicaments and biological substances
CPT/HCPCS: 36415; 80053; 80307; 80320; 81001; 85025; G0480

== ENCOUNTER 2019-10-17 03:44 | Emergency (ER) | payer MEDICAID ==
[2019-10-17] MEDS ORDERED: SODIUM CHLORIDE 0.9% 1000 ML 1,000 ML IV ONE (04:02)
[2019-10-17 04:35] LABS: Basophils % (Auto) 0.5 % (0.0-1.8); Eosinophils # (Auto) 0.1 K/mm3 (0.0-0.4); Eosinophils % (Auto) 1.4 % (0.0-4.3); Hematocrit 35.9 % (35.5-45.6); Hemoglobin 11.8 gm/dl (11.8-15.2); Lymphocytes % (Auto) 32.7 % (13.4-35.0); Mean Corpuscular HGB Conc 33 % (32-34); Mean Corpuscular Volume 84 fl (84-94); Monocytes # (Auto) 0.9 K/mm3 (0.0-0.8); Monocytes % (Auto) 15.5 % (0.0-7.3); Platelet Count 261 K/mm3 (140-440); Red Blood Count 4.29 M/mm3 (3.65-5.03); Red Cell Distribution Width 13.4 % (13.2-15.2)
[2019-10-17 04:44] LABS: INR 0.92 (0.87-1.13)
[2019-10-17 04:45] LABS: BUN/Creatinine Ratio 14; Blood Urea Nitrogen 17 mg/dL (9-20); Calcium 9.4 mg/dL (8.4-10.2); Hemolysis Index 1; Partial Thromboplastin Time 30.9 Sec. (24.2-36.6)
[2019-10-17 04:54] LABS: Alanine Aminotransferase 17 units/L (7-56); Albumin 4.4 g/dL (3.9-5)
[2019-10-17 05:00] LABS: Bilirubin,Direct < 0.2 mg/dL (0-0.2)
--- NOTE | 2019-10-17 05:21 | Emergency Department Report ---
History of Present Illness - General Chief Complaint: Overdose Stated Complaint: SUICIDAL IDEATIONS/MH Time Seen by Provider: 10/17/19 05:16 Source: patient, EMS Mode of arrival: Ambulatory Limitations: No Limitations - History of Present Illness Initial Comments: 64-year-old male with history of bipolar disorder presents to ED reporting overdose. Patient states 2 hours prior to arrival he took he took approximately 10 Xanax tabs and approximately 10 pain pills. Patient states he was feeling suicidal. Patient reports he is the one that called EMS. When asked why he called EMS, patient states, "Well, I was feeling suicidal, but I was not feeling suicidal at the same time." MD Complaint: intentional overdose -: hour(s) (2) Intent: suicide attempt How Overdose Was Discovered: called 911 Associated Symptoms: depression Treatments Prior to Arrival: none - Related Data Home Medications Medication Instructions Recorded Confirmed Last Taken clonazePAM [KlonoPIN] 2 mg PO BID 10/09/14 02/01/17 11/28/16 2 MG Divalproex ER [DepaKOTE ER] 2,500 mg PO QDAY 02/01/17 02/01/17 Unknown Venlafaxine HCl [Effexor Xr] 150 mg PO DAILY 02/01/17 02/01/17 Unknown Venlafaxine [Effexor] 75 mg PO DAILY 02/01/17 02/01/17 Unknown clonazePAM [KlonoPIN] 2 mg PO TID 02/01/17 02/01/17 Unknown Previous Rx's Medication Instructions Recorded Last Taken Type Bupropion HCl [Wellbutrin XL] 300 mg PO QAM #30 tab.er.24h 09/10/14 3 Days Ago Rx ~10/27/14 Allergies Allergy/AdvReac Type Severity Reaction Status Date / Time buspirone HCl [From BuSpar] AdvReac PSYCHOTIC Verified 05/14/18 16:59 haloperidol [From Haldol] AdvReac HANDS Verified 05/14/18 16:59 SWELL / PSYCHOTIC haloperidol lactate AdvReac HANDS Verified 05/14/18 16:59 [From Haldol] SWELL / PSYCHOTIC olanzapine [From Zyprexa] AdvReac PSYCHOTIC Verified 05/14/18 16:59 quetiapine fumarate AdvReac PSYCHOTIC Verified 05/14/18 16:59 [From Seroquel] ED Review of Systems ROS: Stated complaint: SUICIDAL IDEATIONS/MH Other details as noted in HPI Comment: All other systems reviewed and negative Gastrointestinal: denies: abdominal pain, vomiting Psychiatric: depression, suicidal thoughts ED Past Medical Hx - Past Medical History Previous Medical History?: Yes Hx Hypertension: Yes Hx Arthritis: Yes Hx Psychiatric Treatment: Yes (anxiety, ptsd, depression, bipolar) Additional medical history: CHRONIC BACK PAIN. HARD OF HEARING. BULGING DISCS - Surgical History Past Surgical History?: Yes Additional Surgical History: L leg surgery (1994) - Social History Smoking Status: Current Every Day Smoker - Medications Home Medications: Home Medications Medication Instructions Recorded Confirmed Last Taken Type Bupropion HCl [Wellbutrin XL] 300 mg PO QAM #30 tab.er.24h 09/10/14 02/01/17 3 Days Ago Rx ~10/27/14 clonazePAM [KlonoPIN] 2 mg PO BID 10/09/14 02/01/17 11/28/16 History 2 MG Divalproex ER [DepaKOTE ER] 2,500 mg PO QDAY 02/01/17 02/01/17 Unknown History Venlafaxine HCl [Effexor Xr] 150 mg PO DAILY 02/01/17 02/01/17 Unknown History Venlafaxine [Effexor] 75 mg PO DAILY 02/01/17 02/01/17 Unknown History clonazePAM [KlonoPIN] 2 mg PO TID 02/01/17 02/01/17 Unknown History ED Physical Exam - General Limitations: No Limitations General appearance: alert, in no apparent distress - Head Head exam: Present: atraumatic, normocephalic - Eye Eye exam: Present: normal appearance, PERRL, EOMI - ENT ENT exam: Present: mucous membranes moist - Neck Neck exam: Present: normal inspection - Respiratory Respiratory exam: Present: normal lung sounds bilaterally. Absent: respiratory distress - Cardiovascular Cardiovascular Exam: Present: regular rate, normal rhythm - GI/Abdominal GI/Abdominal exam: Present: soft. Absent: distended, tenderness - Extremities Exam Extremities exam: Present: normal inspection - Neurological Exam Neurological exam: Present: alert, oriented X3 - Psychiatric Psychiatric exam: Present: suicidal ideation - Skin Skin exam: Present: warm, dry, intact, normal color ED Course Vital Signs 10/17/19 10/17/19 10/17/19 03:55 04:34 04:54 Temperature 98.7 F Pulse Rate 88 77 72 Respiratory 20 15 17 Rate Blood Pressure 110/67 Blood Pressure [Left] O2 Sat by Pulse 92 93 97 Oximetry 10/17/19 10/17/19 10/17/19 05:00 05:16 05:30 Temperature Pulse Rate 73 68 69 Respiratory 12 15 14 Rate Blood Pressure 106/68 Blood Pressure [Left] O2 Sat by Pulse 95 Oximetry 10/17/19 10/17/19 10/17/19 05:46 06:00 06:16 Temperature Pulse Rate 68 66 67 Respiratory 18 18 16 Rate Blood Pressure 120/70 Blood Pressure [Left] O2 Sat by Pulse 97 Oximetry 10/17/19 10/17/19 10/17/19 06:46 07:00 07:16 Temperature Pulse Rate 69 70 73 Respiratory 20 16 16 Rate Blood Pressure 120/70 106/53 120/70 Blood Pressure [Left] O2 Sat by Pulse 97 97 96 Oximetry 10/17/19 10/17/19 10/17/19 07:30 08:00 08:30 Temperature Pulse Rate 76 69 70 Respiratory 17 18 15 Rate Blood Pressure 105/54 108/53 109/54 Blood Pressure [Left] O2 Sat by Pulse 100 97 97 Oximetry 10/17/19 10/17/19 10/17/19 11:00 18:09 21:07 Temperature 97.5 F L Pulse Rate 91 H 79 73 Respiratory 16 16 16 Rate Blood Pressure Blood Pressure 103/49 114/55 130/70 [Left] O2 Sat by Pulse 100 98 98 Oximetry 10/18/19 10/18/19 10/18/19 04:58 08:09 20:45 Temperature 98.1 F 98.8 F 98.5 F Pulse Rate 93 H 100 H 93 H Respiratory 18 20 18 Rate Blood Pressure 160/71 Blood Pressure 136/76 141/67 [Left] O2 Sat by Pulse 99 95 96 Oximetry ED Medical Decision Making - Lab Data Result diagrams: 10/17/19 04:08 10/17/19 04:08 - EKG Data -: EKG Interpreted by Me EKG shows normal: sinus rhythm, axis, intervals, QRS complexes, ST-T waves Rate: normal - EKG Data Interpretation: no acute changes - Medical Decision Making 64 yo male presents to ED reporting intentional overdose. States he took approximately 10 Xanax tabs and approximately 10 pain pills. Pt is not drowsy or lethargic. He is A&O x 3. Labs are unremarkable, including normal tylenol level. Pt is medically clear for mental health assessment if 2nd tylenol level is within normal limits. Will dispo per psych. - Differential Diagnosis SI Critical care attestation.: If time is entered above; I have spent that time in minutes in the direct care of this critically ill patient, excluding procedure time. ED Disposition Clinical Impression: Suicidal ideation, Overdose Disposition: [id number]/[id number] ANOTHER TYPE [facility]TH[facility]ARE Is pt being admited?: No Condition: Stable Referrals: PRIMARY CARE, [Primary Care Provider] - 3-5 Days
[2019-10-17 08:00] LABS: Bilirubin,Urine NEG (Negative); Blood,Urine NEG (Negative); Color,Urine Yellow (Yellow); Mucus,Urine FEW /HPF; Protein,Urine <15 mg/dL mg/dL (Negative); Urobilinogen,Urine < 2.0 mg/dL (<2.0); WBC,Urine < 1.0 /HPF (0.0-6.0)
[2019-10-17 08:08] LABS: Amphetamine Screen,Urine PRESUMPTIVE NEGATIVE; Cannabinoid Screen,Urine PRESUMPTIVE NEGATIVE; Cocaine Screen,Urine PRESUMPTIVE NEGATIVE; Methadone Screen,Urine PRESUMPTIVE NEGATIVE; Opiate Screen,Urine PRESUMPTIVE NEGATIVE
[2019-10-17 08:32] LABS: Benzodiazepines Screen,Urine PRESUMPTIVE POSITIVE
[2019-10-17] MEDS ORDERED: ZIPRASIDONE MESYLATE 20 MG VIAL IM ONE (23:32)
[2019-10-17] MEDS ORDERED: diphenhydrAMINE 50 MG/ML VIAL IM ONE (23:36)
[2019-10-17] MEDS ORDERED: diphenhydrAMINE 50 MG/ML VIAL ONE (23:38)
--- NOTE | 2019-10-18 11:50 | Consultation ---
History of Present Illness - Reason for Consult Consult date: 10/18/19 Reason for consult: MHE Requesting physician: JACOB SHI - Chief Complaint Chief complaint: MHE - History of Present Psychiatric Illness Per Ed provider: 64-year-old male with history of bipolar disorder presents to ED reporting overdose. Patient states 2 hours prior to arrival he took he took approximately 10 Xanax tabs and approximately 10 pain pills. Patient states he was feeling suicidal. Patient reports he is the one that called EMS. When asked why he called EMS, patient states, "Well, I was feeling suicidal, but I was not feeling suicidal at the same time. Per MHA: Pt is a 64 yo male presenting to ED for intentional OD. Pt reportedly took 10 Xanax pills and 10 pain pills. During ax, pt presented as depressed, with congruent affect and cooperative behaviors. Pt is alert and oriented x 4. Pt stated, "I'm having so much mental pain and I absolutely couldnt bare it anymore." Pt identified trigger of flashbacks of trauma he has experienced over his lifespan. Pt informed microsoft access developer that yesterday he endorsed SI, with an attempt via OD. Pt reports hx of approximately 6 attempts. Pt reports A/H commanding him to kill himself and telling him that he is going to . Pt reports tactile disturbances of feeling people hit him. Pt identified a dx of Schizoaffective Disorder and PTSD. Pt reports connection to OP tx and compliance. Pt currently resides in a transitional home. Pt denies substance use. Pt denies legal issues. Pt reports decrease in sleep and appetite. HPI HPI Patient is a 64-year-old homeless retired male with a past psychiatric history of bipolar, schizophrenia, MDD, PTSD who presented to the ER with suicidal ideation and intentional overdose on Xanax pills and pain pills. Patient reports his been feeling suicidal for a couple of weeks now said suicidal ideation runs in the family and he has been like this almost all his life. Patient then proceeded to saying that he is very confused and sick he does not want to talk any further. PAST PSYCHIATRIC HISTORY Diagnoses: bipolar, schizophrenia, MDD, PTSD Suicide attempts or Self-harm behavior: Yes, tried to cut self Prior psychiatric hospitalizations: Yes multiple Substance Abuse history: Rx drugs Previous psychiatric medications tried: Depakote Outpatient treatment: Yes PAST MEDICAL HISTORY: HTN Family Psychiatric History: None reported or documented SOCIAL HISTORY Marital Status: Unknown Living Arrangements: Homeless Employment Status: Retired Access to guns/weapons: None reported Education: GED History of Abuse: None reported Legal History: None reported REVIEW OF SYSTEMS Constitutional: Negative for weight loss ENT: Negative for stridor Respiratory: Negative for cough or hemoptysis All other systems reviewed and are negative MENTAL STATUS EXAMINATION General Appearance and Behavior: Age appropriate, dishelved poor hygiene, lying in bed, poor eye contact, uncooperative with questioning irritable Cooperation: Withdrawn, Hostile and Guarded Psychomotor Behavior: unremarkable and within normal limits Mood: No confused Affect and affective range: decreased range, irritable Thought Process:Tangential, Perseverative, Illogical, Fragmented and Loose associations Thought Content: Within reality Speech: paucity of speech, difficulty to understand, confused and blocking Intellectual Functioning: Average Suicidal Ideation: Suicidal Homicidal Ideation: Denies HI Impulse Control: Impaired Insight and Judgment: Limited insight and judgment, Impaired Memory: Not accessible Attention: Divided attention impaired Orientation: confused, lethargic Assessment and Plan - Psychiatric problem (1) Schizoaffective disorder, bipolar type Current Visit: Yes Status: Acute (2) Major depressive disorder, severe Current Visit: Yes Status: Acute (3) Substance use disorder Current Visit: Yes Status: Acute RECOMMENDATIONS MEDICATIONS: Deparkote 1000mg QHS, Venlafaxine 150 mg QDAY. Geodon and Phenergan PRN for agitation. Risks, benefits and alternatives of medications discussed with the patient, questions answered and consent obtained from patient. PSYCHOTHERAPY: Supportive psychotherapy provided MEDICAL: Per primary team DELIRIUM PRECAUTIONS: Please re-orient patient frequently, keep lights on during the day, and minimize benzodiazepines and opiates as these medications could worsen patient's confusion. 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 Please contact with any questions and/or concerns. Medications and Allergies Allergies Allergy/AdvReac Type Severity Reaction Status Date / Time buspirone HCl [From BuSpar] AdvReac PSYCHOTIC Verified 05/14/18 16:59 haloperidol [From Haldol] AdvReac HANDS Verified 05/14/18 16:59 SWELL / PSYCHOTIC haloperidol lactate AdvReac HANDS Verified 05/14/18 16:59 [From Haldol] SWELL / PSYCHOTIC olanzapine [From Zyprexa] AdvReac PSYCHOTIC Verified 05/14/18 16:59 quetiapine fumarate AdvReac PSYCHOTIC Verified 05/14/18 16:59 [From Seroquel] Home Medications Medication Instructions Recorded Confirmed Last Taken Type Bupropion HCl [Wellbutrin XL] 300 mg PO QAM #30 tab.er.24h 09/10/14 02/01/17 3 Days Ago Rx ~10/27/14 clonazePAM [KlonoPIN] 2 mg PO BID 10/09/14 02/01/17 11/28/16 History 2 MG Divalproex ER [DepaKOTE ER] 2,500 mg PO QDAY 02/01/17 02/01/17 Unknown History Venlafaxine HCl [Effexor Xr] 150 mg PO DAILY 02/01/17 02/01/17 Unknown History Venlafaxine [Effexor] 75 mg PO DAILY 02/01/17 02/01/17 Unknown History clonazePAM [KlonoPIN] 2 mg PO TID 02/01/17 02/01/17 Unknown History Mental Status Exam - Vital signs Last Vital Signs Temp 98.8 F 10/18/19 08:09 Pulse 100 H 10/18/19 08:09 Resp 20 10/18/19 08:09 BP 141/67 10/18/19 08:09 Pulse Ox 95 10/18/19 08:09 Results Result Diagrams: 10/17/19 04:08 10/17/19 04:08 All other labs normal. Assessment and Plan - Psychiatric problem (1) Schizoaffective disorder, bipolar type Current Visit: Yes Status: Acute (2) Major depressive disorder, severe Current Visit: Yes Status: Acute (3) Substance use disorder Current Visit: Yes Status: Acute
[2019-10-18] MEDS ORDERED: ZIPRASIDONE MESYLATE 20 MG VIAL IM PRN (12:00)
[2019-10-18] MEDS ORDERED: PROMETHAZINE 25 MG TAB PO PRN (12:00)
[2019-10-18] MEDS ORDERED: VENLAFAXINE XR 75 MG CAP PO SCH (13:00)
[2019-10-18 20:49] VITALS: BP 160/71
[2019-10-18] MEDS ORDERED: DIVALPROEX DR 500 MG TAB PO SCH (22:00)
== END 2019-10-18 20:49 | disposition other institution (70) ==
LOC: EEVIPCON 03:44 → ED 03:44
DX: T42.4X2A Poisoning by benzodiazepines, intentional self-harm, initial encounter (principal); I10 Essential (primary) hypertension; M13.88 Other specified arthritis, other site; G89.29 Other chronic pain; F17.200 Nicotine dependence, unspecified, uncomplicated; F31.9 Bipolar disorder, unspecified; F43.10 Post-traumatic stress disorder, unspecified; Z79.899 Other long term (current) drug therapy; Z98.890 Other specified postprocedural states; Z88.1 Allergy status to other antibiotic agents; Z88.6 Allergy status to analgesic agent; Z88.8 Allergy status to other drugs, medicaments and biological substances; Y92.89 Other specified places as the place of occurrence of the external cause
CPT/HCPCS: 36415; 80048; 80076; 80307; 81001; 85025; 85610; 85730; 93005; 96372; 99285; J1200; J3486; J7030; 80320; G0480; Q0177

== ENCOUNTER 2020-04-26 17:16 | Emergency (ER) | payer MEDICAID ==
--- NOTE | 2020-04-26 17:30 | Event Note ---
ED Screening Note Date of service: 04/26/20 Time: 17:30 ED Screening Note: Patient here for attempted suicide in hallucinations Cut left arm and went to sleep hoping to bleed out per patient States his insurance requires preauthorization for his psych meds and he has not taken them This initial assessment/diagnostic orders/clinical plan/treatment(s) is/are subject to change based on patients health status, clinical progression and re- assessment by fellow clinical providers in the ED. Further treatment and workup at subsequent clinical providers discretion. Patient/guardian urged not to elope from the ED as their condition may be serious if not clinically assessed and managed. Initial orders include: 1013 Mental health eval Labs
[2020-04-26 18:17] LABS: Basophils % (Auto) 0.5 % (0.0-1.8); Eosinophils # (Auto) 0.1 K/mm3 (0.0-0.4); Eosinophils % (Auto) 1.3 % (0.0-4.3); Hematocrit 34.4 % (35.5-45.6); Hemoglobin 11.3 gm/dl (11.8-15.2); Lymphocytes # (Auto) 1.8 K/mm3 (1.2-5.4); Lymphocytes % (Auto) 21.5 % (13.4-35.0); Mean Corpuscular HGB Conc 33 % (32-34); Mean Corpuscular Volume 82 fl (84-94); Monocytes # (Auto) 1.2 K/mm3 (0.0-0.8); Monocytes % (Auto) 15.3 % (0.0-7.3); Platelet Count 252 K/mm3 (140-440); Red Blood Count 4.18 M/mm3 (3.65-5.03); Red Cell Distribution Width 14.7 % (13.2-15.2)
[2020-04-26 18:40] LABS: Alanine Aminotransferase 10 units/L (7-56); BUN/Creatinine Ratio 13; Blood Urea Nitrogen 14 mg/dL (9-20); Calcium 8.7 mg/dL (8.4-10.2); Hemolysis Index 4
[2020-04-26 21:04] LABS: Bilirubin,Urine NEG (Negative); Blood,Urine NEG (Negative); Color,Urine Amber (Yellow); Mucus,Urine FEW /HPF; Protein,Urine <15 mg/dL mg/dL (Negative)
[2020-04-26 21:17] LABS: Amphetamine Screen,Urine PRESUMPTIVE NEGATIVE; Benzodiazepines Screen,Urine PRESUMPTIVE POSITIVE; Cannabinoid Screen,Urine PRESUMPTIVE NEGATIVE; Cocaine Screen,Urine PRESUMPTIVE NEGATIVE; Methadone Screen,Urine PRESUMPTIVE NEGATIVE; Opiate Screen,Urine PRESUMPTIVE NEGATIVE
--- NOTE | 2020-04-26 22:33 | Emergency Department Report ---
<BRI RAMIREZ - Last Filed: 04/26/20 22:23> ED Psych HPI - General Chief Complaint: Psych Stated Complaint: SI/HI Time Seen by Provider: 04/26/20 17:28 Source: patient Mode of arrival: Ambulatory - History of Present Illness Initial Comments: Patient is a 65-year-old male who has past medical history of depression and suicidality. Patient states he has been off of his Invega for the past month and his symptoms have worsened. Is patient last night cut himself in the left arm superficially numerous times (at least 20 times) in the hopes that he would bleed out during his sleep. Patient woke up this morning and because he was not came to the hospital for evaluation. States he does hear auditory hallucinations which are command. He denies any homicidal ideations. - Related Data Home Medications Medication Instructions Recorded Confirmed Last Taken amLODIPine 10 mg PO DAILY 04/26/20 04/26/20 Unknown Previous Rx's Medication Instructions Recorded Last Taken Type Divalproex ER [Depakote ER] 500 mg PO BID #60 tablet 04/28/20 Unknown Rx Venlafaxine [Effexor] 300 mg PO DAILY #30 tablet 04/28/20 Unknown Rx buPROPion [Wellbutrin] 150 mg PO DAILY #30 04/28/20 Unknown Rx clonazePAM [KlonoPIN] 0.5 mg PO BID #30 tablet 04/28/20 Unknown Rx Allergies Allergy/AdvReac Type Severity Reaction Status Date / Time buspirone HCl [From BuSpar] AdvReac PSYCHOTIC Verified 05/14/18 16:59 haloperidol [From Haldol] AdvReac HANDS Verified 05/14/18 16:59 SWELL / PSYCHOTIC haloperidol lactate AdvReac HANDS Verified 05/14/18 16:59 [From Haldol] SWELL / PSYCHOTIC olanzapine [From Zyprexa] AdvReac PSYCHOTIC Verified 05/14/18 16:59 quetiapine fumarate AdvReac PSYCHOTIC Verified 05/14/18 16:59 [From Seroquel] ED Review of Systems Comment: All other systems reviewed and negative ED Past Medical Hx - Past Medical History Previous Medical History?: Yes Hx Hypertension: Yes Hx Arthritis: Yes Hx Psychiatric Treatment: Yes (anxiety, ptsd, depression, bipolar) Additional medical history: CHRONIC BACK PAIN. HARD OF HEARING. BULGING DISCS - Surgical History Past Surgical History?: Yes Additional Surgical History: L leg surgery (1994) - Social History Smoking Status: Current Every Day Smoker Substance Use Type: None - Medications Home Medications: Home Medications Medication Instructions Recorded Confirmed Last Taken Type amLODIPine 10 mg PO DAILY 04/26/20 04/26/20 Unknown History Divalproex ER [Depakote ER] 500 mg PO BID #60 tablet 04/28/20 Unknown Rx Venlafaxine [Effexor] 300 mg PO DAILY #30 tablet 04/28/20 Unknown Rx buPROPion [Wellbutrin] 150 mg PO DAILY #30 04/28/20 Unknown Rx clonazePAM [KlonoPIN] 0.5 mg PO BID #30 tablet 04/28/20 Unknown Rx ED Physical Exam - General Limitations: No Limitations General appearance: alert, in no apparent distress - Head Head exam: Present: atraumatic, normocephalic - Eye Eye exam: Present: normal appearance - ENT ENT exam: Present: mucous membranes moist - Neck Neck exam: Present: normal inspection - Respiratory Respiratory exam: Present: normal lung sounds bilaterally. Absent: respiratory distress, wheezes, rales, rhonchi - Cardiovascular Cardiovascular Exam: Present: regular rate, normal rhythm. Absent: normal heart sounds, systolic murmur, diastolic murmur, rubs, gallop - GI/Abdominal GI/Abdominal exam: Present: soft, normal bowel sounds. Absent: distended, tenderness, guarding - Rectal Rectal exam: Present: deferred - Extremities Exam Extremities exam: Present: normal inspection - Expanded Upper Extremity Exam Left Forearm Wrist exam: Present: other (Multiple superficial approximately 4 cm in length linear abrasions and superficial lacerations along the ventral surface of the wrist and forearm. These appear to be in the early stages of healing and there is no active bleeding.) - Back Exam Back exam: Present: normal inspection - Neurological Exam Neurological exam: Present: alert, oriented X3 - Psychiatric Psychiatric exam: Present: normal affect, normal mood - Skin Skin exam: Present: warm, dry, intact, normal color. Absent: rash ED Course - Reevaluation(s) Reevaluation #1: 04/26/20 22:35 None of the wounds appear to need suturing. Wound was covered with Xeroform gauze and then wrapped. Patient medical cleared at this time ED Medical Decision Making - Lab Data Result diagrams: 04/26/20 17:54 04/26/20 17:54 Lab Results 04/26/20 04/26/20 04/26/20 Range/Units 17:54 17:54 17:54 WBC 8.1 (4.5-11.0) K/mm3 RBC 4.18 (3.65-5.03) M/mm3 Hgb 11.3 L (11.8-15.2) gm/dl Hct 34.4 L (35.5-45.6) % MCV 82 L (84-94) fl MCH 27 L (28-32) pg MCHC 33 (32-34) % RDW 14.7 (13.2-15.2) % Plt Count 252 (140-440) K/mm3 Lymph % (Auto) 21.5 (13.4-35.0) % Sibley % (Auto) 15.3 H (0.0-7.3) % Eos % (Auto) 1.3 (0.0-4.3) % Baso % (Auto) 0.5 (0.0-1.8) % Lymph # (Auto) 1.8 (1.2-5.4) K/mm3 Sibley # (Auto) 1.2 H (0.0-0.8) K/mm3 Eos # (Auto) 0.1 (0.0-0.4) K/mm3 Baso # (Auto) 0.0 (0.0-0.1) K/mm3 Seg Neutrophils % 61.4 (40.0-70.0) % Seg Neutrophils # 5.0 (1.8-7.7) K/mm3 Sodium 140 (137-145) mmol/L Potassium 3.8 (3.6-5.0) mmol/L Chloride 103.9 (98-107) mmol/L Carbon Dioxide 24 (22-30) mmol/L Anion Gap 16 mmol/L BUN 14 (9-20) mg/dL Creatinine 1.1 (0.8-1.3) mg/dL Estimated GFR > 60 ml/min BUN/Creatinine Ratio 13 % Glucose 86 (75-100) mg/dL Calcium 8.7 (8.4-10.2) mg/dL Total Bilirubin < 0.20 (0.1-1.2) mg/dL AST 14 (5-40) units/L ALT 10 (7-56) units/L Alkaline Phosphatase 47 (35-129) units/L Total Protein 6.4 (6.3-8.2) g/dL Albumin 4.0 (3.9-5) g/dL Albumin/Globulin Ratio 1.7 % Urine Color (Yellow) Urine Turbidity (Clear) Urine pH (5.0-7.0) Ur Specific [place] (1.003-1.030) Urine Protein (Negative) mg/dL Urine Glucose (UA) (Negative) mg/dL Urine Ketones (Negative) mg/dL Urine Blood (Negative) Urine Nitrite (Negative) Urine Bilirubin (Negative) Urine Urobilinogen (<2.0) mg/dL Ur Leukocyte Esterase (Negative) Urine WBC (Auto) (0.0-6.0) /HPF Urine RBC (Auto) (0.0-6.0) /HPF Urine Mucus /HPF Salicylates < 0.3 L (2.8-20.0) mg/dL Urine Opiates Screen Urine Methadone Screen Acetaminophen (10.0-30.0) ug/mL Ur Barbiturates Screen Ur Phencyclidine Scrn Ur Amphetamines Screen U Benzodiazepines Scrn Urine Cocaine Screen U Marijuana (THC) Screen Drugs of Abuse Note Plasma/Serum Alcohol (0-0.07) % 04/26/20 04/26/20 04/26/20 Range/Units 17:54 17:54 20:48 WBC (4.5-11.0) K/mm3 RBC (3.65-5.03) M/mm3 Hgb (11.8-15.2) gm/dl Hct (35.5-45.6) % MCV (84-94) fl MCH (28-32) pg MCHC (32-34) % RDW (13.2-15.2) % Plt Count (140-440) K/mm3 Lymph % (Auto) (13.4-35.0) % Sibley % (Auto) (0.0-7.3) % Eos % (Auto) (0.0-4.3) % Baso % (Auto) (0.0-1.8) % Lymph # (Auto) (1.2-5.4) K/mm3 Sibley # (Auto) (0.0-0.8) K/mm3 Eos # (Auto) (0.0-0.4) K/mm3 Baso # (Auto) (0.0-0.1) K/mm3 Seg Neutrophils % (40.0-70.0) % Seg Neutrophils # (1.8-7.7) K/mm3 Sodium (137-145) mmol/L Potassium (3.6-5.0) mmol/L Chloride (98-107) mmol/L Carbon Dioxide (22-30) mmol/L Anion Gap mmol/L BUN (9-20) mg/dL Creatinine (0.8-1.3) mg/dL Estimated GFR ml/min BUN/Creatinine Ratio % Glucose (75-100) mg/dL Calcium (8.4-10.2) mg/dL Total Bilirubin (0.1-1.2) mg/dL AST (5-40) units/L ALT (7-56) units/L Alkaline Phosphatase (35-129) units/L Total Protein (6.3-8.2) g/dL Albumin (3.9-5) g/dL Albumin/Globulin Ratio % Urine Color Madeline (Yellow) Urine Turbidity Clear (Clear) Urine pH 6.0 (5.0-7.0) Ur Specific [place] 1.017 (1.003-1.030) Urine Protein <15 mg/dl (Negative) mg/dL Urine Glucose (UA) Neg (Negative) mg/dL Urine Ketones Tr (Negative) mg/dL Urine Blood Neg (Negative) Urine Nitrite Neg (Negative) Urine Bilirubin Neg (Negative) Urine Urobilinogen 2.0 (<2.0) mg/dL Ur Leukocyte Esterase Neg (Negative) Urine WBC (Auto) 2.0 (0.0-6.0) /HPF Urine RBC (Auto) 4.0 (0.0-6.0) /HPF Urine Mucus Few /HPF Salicylates (2.8-20.0) mg/dL Urine Opiates Screen Urine Methadone Screen Acetaminophen 5.0 L (10.0-30.0) ug/mL Ur Barbiturates Screen Ur Phencyclidine Scrn Ur Amphetamines Screen U Benzodiazepines Scrn Urine Cocaine Screen U Marijuana (THC) Screen Drugs of Abuse Note Plasma/Serum Alcohol < 0.01 (0-0.07) % 04/26/20 Range/Units 20:48 WBC (4.5-11.0) K/mm3 RBC (3.65-5.03) M/mm3 Hgb (11.8-15.2) gm/dl Hct (35.5-45.6) % MCV (84-94) fl MCH (28-32) pg MCHC (32-34) % RDW (13.2-15.2) % Plt Count (140-440) K/mm3 Lymph % (Auto) (13.4-35.0) % Sibley % (Auto) (0.0-7.3) % Eos % (Auto) (0.0-4.3) % Baso % (Auto) (0.0-1.8) % Lymph # (Auto) (1.2-5.4) K/mm3 [place]y # (Auto) (0.0-0.8) K/mm3 Eos # (Auto) (0.0-0.4) K/mm3 Baso # (Auto) (0.0-0.1) K/mm3 Seg Neutrophils % (40.0-70.0) % Seg Neutrophils # (1.8-7.7) K/mm3 Sodium (137-145) mmol/L Potassium (3.6-5.0) mmol/L Chloride (98-107) mmol/L Carbon Dioxide (22-30) mmol/L Anion Gap mmol/L BUN (9-20) mg/dL Creatinine (0.8-1.3) mg/dL Estimated GFR ml/min BUN/Creatinine Ratio % Glucose (75-100) mg/dL Calcium (8.4-10.2) mg/dL Total Bilirubin (0.1-1.2) mg/dL AST (5-40) units/L ALT (7-56) units/L Alkaline Phosphatase (35-129) units/L Total Protein (6.3-8.2) g/dL Albumin (3.9-5) g/dL Albumin/Globulin Ratio % Urine Color (Yellow) Urine Turbidity (Clear) Urine pH (5.0-7.0) Ur Specific [place] (1.003-1.030) Urine Protein (Negative) mg/dL Urine Glucose (UA) (Negative) mg/dL Urine Ketones (Negative) mg/dL Urine Blood (Negative) Urine Nitrite (Negative) Urine Bilirubin (Negative) Urine Urobilinogen (<2.0) mg/dL Ur Leukocyte Esterase (Negative) Urine WBC (Auto) (0.0-6.0) /HPF Urine RBC (Auto) (0.0-6.0) /HPF Urine Mucus /HPF Salicylates (2.8-20.0) mg/dL Urine Opiates Screen Presumptive negative Urine Methadone Screen Presumptive negative Acetaminophen (10.0-30.0) ug/mL Ur Barbiturates Screen Presumptive negative Ur Phencyclidine Scrn Presumptive negative Ur Amphetamines Screen Presumptive negative U Benzodiazepines Scrn Presumptive positive Urine Cocaine Screen Presumptive negative U Marijuana (THC) Screen Presumptive negative Drugs of Abuse Note Disclamer Plasma/Serum Alcohol (0-0.07) % ED Disposition Clinical Impression: Suicidal ideation, Schizoaffective disorder, bipolar type Disposition: DC-01 TO HOME OR SELFCARE Condition: Stable Additional Instructions: OUTPATIENT MENTAL HEALTH RESOURCES [facility], [facility] Monika Macdonald MD: [address] [facility] [address] [place] [address] [place] [address] [facility]: [employer] [address] [place] [address] [place] [address] [phone] [facility]: [facility]: [address] [place] [address] [address] [place] [address] [place] [address] [facility] [id number] [facility]: Kojo Uribe MD: [id number] [facility] [address] [facility] [id number] [facility]: [address] [place], [place] [id number] [phone] [place] CRISIS AND ACCESS LINE: Prescriptions: Divalproex ER [Depakote ER] 500 mg PO BID #60 tablet Venlafaxine [Effexor] 300 mg PO DAILY #30 tablet clonazePAM [KlonoPIN] 0.5 mg PO BID #30 tablet buPROPion [Wellbutrin] 150 mg PO DAILY #30 Referrals: PRIMARY CAREMD [Primary Care Provider] - 3-5 Days <ERICKA RAMIREZ - Last Filed: 04/28/20 16:08> ED Review of Systems ROS: Stated complaint: SI/HI Other details as noted in HPI ED Course Vital Signs 04/26/20 04/27/20 04/27/20 17:20 02:11 09:33 Temperature 98.9 F 97.5 F L 97.6 F Pulse Rate 109 H 74 81 Respiratory 18 16 Rate Blood Pressure 106/66 94/56 141/72 [Right] O2 Sat by Pulse 95 97 Oximetry 04/27/20 04/28/20 04/28/20 20:23 03:00 08:24 Temperature 98.0 F 97.6 F 97.9 F Pulse Rate 82 70 86 Respiratory 18 16 20 Rate Blood Pressure 120/71 110/63 131/65 [Right] O2 Sat by Pulse 99 98 98 Oximetry ED Medical Decision Making - Lab Data Result diagrams: 04/26/20 17:54 04/26/20 17:54 - Medical Decision Making 1013 has been rescinded by our psychiatric team. Patient will be discharged. Critical care attestation.: If time is entered above; I have spent that time in minutes in the direct care of this critically ill patient, excluding procedure time. ED Disposition Is pt being admited?: No Does the pt Need Aspirin: No
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
[2020-04-27] MEDS: clonazePAM 0.5 MG TAB PO SCH ×2 (11:31→22:44)
[2020-04-27] MEDS: DIVALPROEX ER 500 MG TAB PO SCH ×2 (11:31→22:43)
[2020-04-27] MEDS: VENLAFAXINE 75 MG TAB PO SCH (12:00)
[2020-04-28 08:25] VITALS: BP 131/65
[2020-04-28] MEDS ORDERED: buPROPion 100 MG TAB PO SCH (10:00)
[2020-04-28] MEDS ORDERED: buPROPion 75 MG TAB PO SCH (10:00)
[2020-04-28] MEDS: clonazePAM 0.5 MG TAB PO SCH (10:16)
[2020-04-28] MEDS: VENLAFAXINE 75 MG TAB PO SCH (10:17)
[2020-04-28] MEDS: DIVALPROEX ER 500 MG TAB PO SCH (10:17)
--- NOTE | 2020-04-28 11:22 | Progress Note ---
Subjective - Reason for Consult Consult date: 04/28/20 Reason for consult: MHE Requesting physician: BRI RAMIREZ - Chief Complaint Chief complaint: Psych progress Patient seen this a.m., today patient reports feeling better, says he is no longer SI and no longer depressed as was when he initially came in. Patient endorses medication efficacy and wishes to be discharged to go back home REVIEW OF SYSTEMS Constitutional: Negative for weight loss ENT: Negative for stridor Respiratory: Negative for cough or hemoptysis All other systems reviewed and are negative MENTAL STATUS EXAMINATION General Appearance and Behavior: Age appropriate, good hygiene, wearing appropriate clothes, good eye contact, cooperative polite with questioning. Cooperation: Participating/engaged Psychomotor Behavior: unremarkable and within normal limits Mood: Good Affect and affective range: congruent with mood Thought Process: Fluent/Logical, Thought Content: Within reality, Speech: Normal volume, Regular rate and rhythm, Intellectual Functioning: Average Suicidal Ideation: Denies SI Homicidal Ideation: Denies HI Impulse Control: Unimpaired Insight and Judgment: Normal insight and judgment, Memory: Normal, Attention: Normal, Orientation: Alert, oriented, Assessment and Plan - Psychiatric problem (1) Schizoaffective disorder, bipolar type Current Visit: Yes Status: Acute (2) Major depressive disorder, severe Current Visit: Yes Status: Acute (3) Substance use disorder Current Visit: Yes Status: Acute RECOMMENDATIONS MEDICATIONS: Deparkote 500mg BID, Venlafaxine 300 mg QDAY. Risks, benefits and alternatives of medications discussed with the patient, questions answered and consent obtained from patient. PSYCHOTHERAPY: Supportive psychotherapy provided MEDICAL: Per primary team DELIRIUM PRECAUTIONS: Please re-orient patient frequently, keep lights on during the day, and minimize benzodiazepines and opiates as these medications could worsen patient's confusion. 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 Please contact with any questions and/or concerns. Mental Status Exam - Vital signs Last Vital Signs Temp 97.9 F 04/28/20 08:24 Pulse 86 04/28/20 08:24 Resp 20 04/28/20 08:24 BP 131/65 04/28/20 08:24 Pulse Ox 98 04/28/20 08:24
== END 2020-04-28 16:30 | disposition home or self-care (01) ==
LOC: ED 17:16 → EEVIPCON 17:16 → ED 04-28 16:30
DX: R45.851 Suicidal ideations (principal); F25.0 Schizoaffective disorder, bipolar type; Z20.828 Contact with and (suspected) exposure to other viral communicable diseases; I10 Essential (primary) hypertension; M19.91 Primary osteoarthritis, unspecified site; F41.9 Anxiety disorder, unspecified; F17.200 Nicotine dependence, unspecified, uncomplicated; Z98.890 Other specified postprocedural states; Z79.899 Other long term (current) drug therapy; Z88.8 Allergy status to other drugs, medicaments and biological substances
CPT/HCPCS: 36415; 80053; 80307; 80320; 81001; 85025; G0480; U0003

== ENCOUNTER 2020-07-31 15:43 | Emergency (ER) | payer MEDICAID ==
--- NOTE | 2020-07-31 19:25 | Emergency Department Report ---
HPI - General Chief Complaint: Psych Time Seen by Provider: 07/31/20 19:12 - HPI HPI: Room 30 The patient is a 65-year-old male present with a chief complaint of suicidal ideation and depression. Patient states she has been depressed and suffering from auditory hallucinations which bother him all night. The patient states over the past 2 weeks he has consumed a total of 270 Ultram (the last 6-year-old which he consumed between 07/26-07/29). The patient states he also consumed a total of 90 Ativan between 07/26 - 07/29. The patient states he would just continue to eat "eat" these pills and would intermittently be in a "stupor." The patient states if he leaves this hospital he is going to go cut his wrist. When asked how he is feeling the patient states he just feels "shaky" inside and is requesting Klonopin ED Past Medical Hx - Past Medical History Previous Medical History?: Yes Hx Hypertension: Yes Hx Arthritis: Yes Hx Psychiatric Treatment: Yes (anxiety, ptsd, depression, bipolar) Additional medical history: CHRONIC BACK PAIN. HARD OF HEARING. BULGING DISCS - Surgical History Additional Surgical History: L leg surgery (1994) - Family History Family history: no significant - Social History Smoking Status: Current Every Day Smoker (Cigars) Substance Use Type: None (Denies illicit drug use) - Medications Home Medications: Home Medications Medication Instructions Recorded Confirmed Last Taken Type amLODIPine 10 mg PO DAILY 04/26/20 07/31/20 07/31/20 07:00 History Divalproex ER [Depakote ER] 500 mg PO BID #60 tablet 04/28/20 07/31/20 07/31/20 07:00 Rx Venlafaxine [Effexor] 300 mg PO DAILY #30 tablet 04/28/20 07/31/20 07:00 Rx buPROPion [Wellbutrin] 150 mg PO DAILY #30 04/28/20 07/31/20 07/31/20 07:00 Rx clonazePAM [KlonoPIN] 0.5 mg PO BID #30 tablet 04/28/20 07/31/20 07:00 Rx Gabapentin 900 mg PO TID 07/31/20 07/31/20 07/31/20 07:00 History Lisinopril 20 mg PO DAILY 07/31/20 07/31/20 07/31/20 07:00 History Topiramate 60 mg PO BID 07/31/20 07/31/20 07/31/20 07:00 History amLODIPine 20 mg PO DAILY 07/31/20 07/31/20 07/31/20 07:00 History hydrOXYzine PAMOATE 50 mg PO TID PRN 07/31/20 07/31/20 07/31/20 07:00 History traMADoL 50 mg PO QID PRN 07/31/20 07/31/20 07/31/20 07:00 History traZODone 150 mg PO DAILY PRN 08/01/20 08/01/20 07/31/20 19:00 History ED Review of Systems ROS: Stated complaint: SUICIDE ATTEMPT Other details as noted in HPI Constitutional: no symptoms reported Eyes: denies: eye pain ENT: denies: throat pain Respiratory: no symptoms reported Cardiovascular: denies: chest pain Endocrine: no symptoms reported Gastrointestinal: denies: abdominal pain Genitourinary: denies: dysuria Musculoskeletal: denies: back pain Neurological: other (Feels "shaky"). denies: headache Psychiatric: depression, suicidal thoughts Physical Exam - Physical Exam Vital Signs: Vital Signs 07/31/20 16:27 Temperature 97.6 F Pulse Rate 83 Respiratory 16 Rate Blood Pressure 125/50 O2 Sat by Pulse 98 Oximetry Physical Exam: GENERAL: The patient is well-developed well-nourished male sitting in chair appearing mildly emotionally upset HEENT: Normocephalic. Atraumatic. Extraocular motions are intact. Patient has moist mucous membranes. NECK: Supple. Trachea midline CHEST/LUNGS: Clear to auscultation. There is no respiratory distress noted. HEART/CARDIOVASCULAR: Regular. There is no tachycardia. There is no gallop rub or murmur. ABDOMEN: Abdomen is soft, nontender. Patient has normal bowel sounds. There is no abdominal distention. SKIN: There is no rash. There is no edema. There is no diaphoresis. NEURO: The patient is awake, alert, and oriented. The patient is cooperative. The patient has no focal neurologic deficits. The patient has normal speech. There is no tremulousness MUSCULOSKELETAL: There is no evidence of acute injury. ED Course Vital Signs 07/31/20 16:27 Temperature 97.6 F Pulse Rate 83 Respiratory 16 Rate Blood Pressure 125/50 O2 Sat by Pulse 98 Oximetry - Consultations Consultation #1: 07/31/20 19:27 Poison control called 07/31/20 20:05 Case discussed with poison control. States patient may be cleared for psych as medications are out of his system now. Recommends checking labs and EKG for QRS widening or QTC greater than 500 ED Medical Decision Making - Lab Data Result diagrams: 07/31/20 19:23 07/31/20 19:23 - EKG Data -: EKG Interpreted by Me EKG shows normal: sinus rhythm Rate: normal - EKG Data When compared to previous EKG there are: previous EKG unavailable Interpretation: other (QRS 98, QTc 454) - Differential Diagnosis Suicidal ideation Critical care attestation.: If time is entered above; I have spent that time in minutes in the direct care of this critically ill patient, excluding procedure time. ED Disposition Clinical Impression: Suicidal ideation, Intentional drug overdose Disposition: [id number]/TX-65 PSY HOSP/PSY UNIT Is pt being admited?: No Does the pt Need Aspirin: No Condition: Stable Referrals: BENITA PAIGE MD [Primary Care Provider] - 3-5 Days
[2020-07-31 19:34] LABS: Basophils % (Auto) 0.3 % (0.0-1.8); Eosinophils # (Auto) 0.1 K/mm3 (0.0-0.4); Eosinophils % (Auto) 0.6 % (0.0-4.3); Hematocrit 35.7 % (35.5-45.6); Hemoglobin 12.3 gm/dl (11.8-15.2); Lymphocytes # (Auto) 1.6 K/mm3 (1.2-5.4); Lymphocytes % (Auto) 10.1 % (13.4-35.0); Mean Corpuscular HGB Conc 34 % (32-34); Mean Corpuscular Volume 81 fl (84-94); Monocytes # (Auto) 1.5 K/mm3 (0.0-0.8); Monocytes % (Auto) 9.8 % (0.0-7.3); Platelet Count 287 K/mm3 (140-440); Red Blood Count 4.42 M/mm3 (3.65-5.03); Red Cell Distribution Width 14.4 % (13.2-15.2)
[2020-07-31 19:51] LABS: INR 0.88 (0.87-1.13)
[2020-07-31 19:52] LABS: Partial Thromboplastin Time 27.3 Sec. (24.2-36.6)
[2020-07-31 19:56] LABS: Albumin 4.5 g/dL (3.9-5); Calcium 9.3 mg/dL (8.4-10.2)
[2020-07-31 21:38] LABS: Bilirubin,Urine NEG (Negative); Blood,Urine NEG (Negative); Color,Urine Yellow (Yellow); Hyaline Casts,Urine 1 /LPF; Mucus,Urine FEW /HPF; RBC,Urine < 1.0 /HPF (0.0-6.0); Urobilinogen,Urine < 2.0 mg/dL (<2.0)
[2020-07-31 21:46] LABS: Amphetamine Screen,Urine Negative; Benzodiazepines Screen,Urine Negative; Cannabinoid Screen,Urine Negative; Cocaine Screen,Urine Negative; Opiate Screen,Urine Negative
[2020-07-31 22:43] LABS: Methadone Screen,Urine Positive
[2020-08-01] MEDS ORDERED: TRAZODONE 150 MG PO PRN (01:05)
[2020-08-01] MEDS ORDERED: traZODone 50 MG TAB PO PRN (01:16)
--- NOTE | 2020-08-01 08:38 | Consultation ---
History of Present Illness - Reason for Consult Consult date: 08/01/20 Reason for consult: Suicidal attempt - History of Present Psychiatric Illness Per ER note: "The patient is a 65-year-old male present with a chief complaint of suicidal ideation and depression. Patient states she has been depressed and suffering from auditory hallucinations which bother him all night. The patient states over the past 2 weeks he has consumed a total of 270 Ultram (the last 6-year-old which he consumed between 07/26-07/29). The patient states he also consumed a total of 90 Ativan between 07/26 - 07/29. The patient states he would just continue to eat "eat" these pills and would intermittently be in a "stupor." The patient states if he leaves this hospital he is going to go cut his wrist. When asked how he is feeling the patient states he just feels "shaky" inside and is requesting Klonopin." During my interview with 65y/o Bethel Perla, he is lying in bed awake. He is a/o x 3. He is anxious. The patient says he attempted to end his life by taking pills. He says "I'm very depressed and just don't feel the need to live." The patient says he hears voices saying "I'm not going to be happy until I ." He denies any drug use, alcohol, or nicotine. He says he has a history of "bipolar, ptsd, depression and anxiety." PAST PSYCHIATRIC HISTORY Diagnoses: bipolar, anxiety, MDD, PTSD Suicide attempts or Self-harm behavior: Yes Prior psychiatric hospitalizations: Yes multiple Substance Abuse history: Rx drugs Previous psychiatric medications tried: Depakote Outpatient treatment: Yes PAST MEDICAL HISTORY: HTN Family Psychiatric History: None reported or documented SOCIAL HISTORY Marital Status: Living Arrangements: jail Employment Status: Disabled Access to guns/weapons: Denies Education: GED History of Abuse: Denies Legal History: Denies REVIEW OF SYSTEMS Constitutional: Negative for weight loss ENT: Negative for stridor Respiratory: Negative for cough or hemoptysis All other systems reviewed and are negative MENTAL STATUS EXAMINATION General Appearance and Behavior: Age appropriate, dressed appropriately, lying in bed, poor eye contact, cooperative with questioning, anxious Cooperation: Withdrawn Psychomotor Behavior: unremarkable and within normal limits Mood: Depressed Affect and affective range: restricted Thought Process: goal directed Thought Content: hallucinations, SI, hopelessness Speech: normal tone and pace Intellectual Functioning: Average Suicidal Ideation: Suicidal Homicidal Ideation: Denies HI Hallucinations: Auditory Delusions: None elicited Impulse Control: Impaired Insight and Judgment: Limited insight and judgment, Impaired Memory: Normal Attention: Normal Orientation:a/o Assessment and Plan (1) Bipolar Disorder, Current Episode Depressed with Psychotic Features Current Visit: Yes Status: Acute (2) Generalized Anxiety Disorder Current Visit: Yes Status: Acute RECOMMENDATIONS Continue Home depakote Decrease home klonopin 0.25mg po BID Risks, benefits and alternatives of medications discussed with the patient, questions answered and consent obtained from patient. PSYCHOTHERAPY: Supportive psychotherapy provided MEDICAL: Per primary team DELIRIUM PRECAUTIONS: Please re-orient patient frequently, keep lights on during the day, and minimize benzodiazepines and opiates as these medications could worsen patient's confusion. 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 Please contact with any questions and/or concerns. Case staffed with Dr. Fitzpatrick Medications and Allergies Allergies Allergy/AdvReac Type Severity Reaction Status Date / Time buspirone HCl [From BuSpar] AdvReac PSYCHOTIC Verified 05/14/18 16:59 haloperidol [From Haldol] AdvReac HANDS Verified 05/14/18 16:59 SWELL / PSYCHOTIC haloperidol lactate AdvReac HANDS Verified 05/14/18 16:59 [From Haldol] SWELL / PSYCHOTIC olanzapine [From Zyprexa] AdvReac PSYCHOTIC Verified 05/14/18 16:59 quetiapine fumarate AdvReac PSYCHOTIC Verified 05/14/18 16:59 [From Seroquel] Home Medications Medication Instructions Recorded Confirmed Last Taken Type amLODIPine 10 mg PO DAILY 04/26/20 07/31/20 07/31/20 07:00 History Divalproex ER [Depakote ER] 500 mg PO BID #60 tablet 04/28/20 07/31/20 07/31/20 07:00 Rx Venlafaxine [Effexor] 300 mg PO DAILY #30 tablet 04/28/20 07/31/20 07:00 Rx buPROPion [Wellbutrin] 150 mg PO DAILY #30 04/28/20 07/31/20 07/31/20 07:00 Rx clonazePAM [KlonoPIN] 0.5 mg PO BID #30 tablet 04/28/20 07/31/20 07:00 Rx Gabapentin 900 mg PO TID 07/31/20 07/31/20 07/31/20 07:00 History Lisinopril 20 mg PO DAILY 07/31/20 07/31/20 07/31/20 07:00 History Topiramate 60 mg PO BID 07/31/20 07/31/20 07/31/20 07:00 History amLODIPine 20 mg PO DAILY 07/31/20 07/31/20 07/31/20 07:00 History hydrOXYzine PAMOATE 50 mg PO TID PRN 07/31/20 07/31/20 07/31/20 07:00 History traMADoL 50 mg PO QID PRN 07/31/20 07/31/20 07/31/20 07:00 History traZODone 150 mg PO DAILY PRN 08/01/20 08/01/20 07/31/20 19:00 History Active Meds: Active Medications Trazodone HCl (Trazodone 50 Mg Tab) 150 mg PO QHS PRN PRN Reason: Sleep Last Admin: 08/01/20 01:24 Dose: 150 mg Documented by: Mental Status Exam - Vital signs Last Vital Signs Temp 97.8 F 08/01/20 07:18 Pulse 98 H 08/01/20 07:18 Resp 20 08/01/20 07:18 BP 102/49 08/01/20 07:18 Pulse Ox 99 08/01/20 07:18 Results Result Diagrams: 07/31/20 19:23 07/31/20 19:23 Abnormal lab results 07/31/20 07/31/20 07/31/20 Range/Units 19:23 19:23 19:23 WBC 15.4 H (4.5-11.0) K/mm3 MCV 81 L (84-94) fl Lymph % (Auto) 10.1 L (13.4-35.0) % [place] % (Auto) 9.8 H (0.0-7.3) % [place] # (Auto) 1.5 H (0.0-0.8) K/mm3 Seg Neutrophils % 79.2 H (40.0-70.0) % Seg Neutrophils # 12.2 H (1.8-7.7) K/mm3 PT 11.7 L (12.2-14.9) Sec. Sodium 135 L (137-145) mmol/L BUN 23 H (9-20) mg/dL Creatinine 1.5 H (0.8-1.3) mg/dL Glucose 106 H (75-100) mg/dL Salicylates (2.8-20.0) mg/dL Acetaminophen (10.0-30.0) ug/mL Valproic Acid (50-100) ug/mL 07/31/20 07/31/20 Range/Units 19:23 19:23 WBC (4.5-11.0) K/mm3 MCV (84-94) fl Lymph % (Auto) (13.4-35.0) % [place] % (Auto) (0.0-7.3) % [place] # (Auto) (0.0-0.8) K/mm3 Seg Neutrophils % (40.0-70.0) % Seg Neutrophils # (1.8-7.7) K/mm3 PT (12.2-14.9) Sec. Sodium (137-145) mmol/L BUN (9-20) mg/dL Creatinine (0.8-1.3) mg/dL Glucose (75-100) mg/dL Salicylates 0.4 L (2.8-20.0) mg/dL Acetaminophen 5.0 L (10.0-30.0) ug/mL Valproic Acid 49.2 L (50-100) ug/mL All other labs normal.
[2020-08-01] MEDS ORDERED: DIVALPROEX ER 500 MG TAB PO SCH (10:00)
[2020-08-01] MEDS ORDERED: clonazePAM 0.5 MG TAB PO SCH (10:00)
[2020-08-01] MEDS ORDERED: GABAPENTIN 400 MG CAP PO SCH (11:00)
[2020-08-01 17:07] VITALS: BP 112/54
== END 2020-08-01 17:17 | disposition home or self-care (01) ==
LOC: ED 15:43
DX: T65.91XA Toxic effect of unspecified substance, accidental (unintentional), initial encounter (principal); R45.851 Suicidal ideations; Z20.822 Contact with and (suspected) exposure to COVID-19; I10 Essential (primary) hypertension; M19.91 Primary osteoarthritis, unspecified site; F41.9 Anxiety disorder, unspecified; F17.200 Nicotine dependence, unspecified, uncomplicated; Z98.890 Other specified postprocedural states; Z88.8 Allergy status to other drugs, medicaments and biological substances; Z79.899 Other long term (current) drug therapy; Y92.89 Other specified places as the place of occurrence of the external cause
CPT/HCPCS: 36415; 80053; 80164; 80307; 81001; 85025; 85610; 85730; 93005; 99285; J3246; U0003; 80320; G0480

== ENCOUNTER 2020-08-01 15:19 | Inpatient (IN) | payer MEDICAID ==
[2020-08-01] MEDS ORDERED: TRAZODONE 150 MG PO PRN (17:06)
[2020-08-01] MEDS ORDERED: HYDROXYZINE PAMOATE 50 MG PO PRN (17:06)
[2020-08-01] MEDS ORDERED: traZODone 50 MG TAB PO PRN (19:06)
[2020-08-01 19:25] LABS: Chol/HDL Ratio 3.71 %
--- NOTE | 2020-08-01 20:35 | Consultation ---
History of Present Illness - Reason for Consult Consult date: 08/01/20 Requesting physician: TIFFANIE BURNS - History of Present Illness 65 YO Male with HTN, OA, BISMARK, PTSD, Depression, Vascular Dementia with Behavioral Disturbance, Nicotine Dependence, Bipolar disorder admitted to [facility] for Psychiatric stabilization. Consult placed by Dr. Burns for medical m anagement. Pt seen and evaluated in the emergency room. Patient denies fever, chills, chest pain, palpitation, productive cough, recent ill contacts, or known exposure to COVID-19. No prior admission for review. No reported nursing events. Past History Past Medical History: arthritis, hypertension Past Surgical History: Other (Left leg surgery) Social history: , smoking Family history: hypertension Medications and Allergies Allergies Allergy/AdvReac Type Severity Reaction Status Date / Time buspirone HCl [From BuSpar] AdvReac PSYCHOTIC Verified 05/14/18 16:59 haloperidol [From Haldol] AdvReac HANDS Verified 05/14/18 16:59 SWELL / PSYCHOTIC haloperidol lactate AdvReac HANDS Verified 05/14/18 16:59 [From Haldol] SWELL / PSYCHOTIC olanzapine [From Zyprexa] AdvReac PSYCHOTIC Verified 05/14/18 16:59 quetiapine fumarate AdvReac PSYCHOTIC Verified 05/14/18 16:59 [From Seroquel] Home Medications Medication Instructions Recorded Confirmed Last Taken Type amLODIPine 10 mg PO DAILY 04/26/20 07/31/20 07/31/20 07:00 History Divalproex ER [Depakote ER] 500 mg PO BID #60 tablet 04/28/20 07/31/20 07/31/20 07:00 Rx Venlafaxine [Effexor] 300 mg PO DAILY #30 tablet 04/28/20 07/31/20 07:00 Rx buPROPion [Wellbutrin] 150 mg PO DAILY #30 04/28/20 07/31/20 07/31/20 07:00 Rx clonazePAM [KlonoPIN] 0.5 mg PO BID #30 tablet 04/28/20 07/31/20 07:00 Rx Gabapentin 900 mg PO TID 07/31/20 07/31/20 07/31/20 07:00 History Lisinopril 20 mg PO DAILY 07/31/20 07/31/20 07/31/20 07:00 History Topiramate 60 mg PO BID 07/31/20 07/31/20 07/31/20 07:00 History amLODIPine 20 mg PO DAILY 07/31/20 07/31/20 07/31/20 07:00 History hydrOXYzine PAMOATE 50 mg PO TID PRN 07/31/20 07/31/20 07/31/20 07:00 History traMADoL 50 mg PO QID PRN 07/31/20 07/31/20 07/31/20 07:00 History Paliperidone [Invega] 9 mg PO QHS 08/01/20 08/01/20 Unknown History traZODone 150 mg PO DAILY PRN 08/01/20 08/01/20 07/31/20 19:00 History Active Meds: Active Medications Amlodipine Besylate (Amlodipine 10 Mg Tab) 10 mg PO DAILY [facility] Clonazepam (Clonazepam 0.5 Mg Tab) 0.25 mg PO BID [facility] Divalproex Sodium (Divalproex Er 500 Mg Tab) 500 mg PO BID [facility] Hydroxyzine Pamoate (Hydroxyzine Pamoate 50 Mg Cap) 50 mg PO TID PRN PRN Reason: Anxiety Lisinopril (Lisinopril 20 Mg Tab) 20 mg PO QDAY [facility] Miscellaneous Medication (Topiramate) 60 mg PO BID [facility] Nicotine (Nicotine 21 Mg/24 Hr Patch) 21 mg TD QDAY [facility] Trazodone HCl (Trazodone 50 Mg Tab) 150 mg PO QHS PRN PRN Reason: Sleep Venlafaxine HCl (Venlafaxine 75 Mg Tab) 300 mg PO DAILY [facility] Review of Systems Constitutional: no weight loss, no weight gain, no fever, no chills Ears, nose, mouth and throat: no ear pain, no ear discharge, no tinnitis, no decreased hearing Cardiovascular: no chest pain, no palpitations, no edema, no syncope Respiratory: no cough, no excessive sputum Gastrointestinal: no nausea, no diarrhea, no change in bowel habits, no hematemesis Genitourinary Male: no hematuria, no flank pain, no discharge, no urinary frequency, no urinary hesitancy Rectal: no pain, no bleeding Musculoskeletal: no neck pain, no shooting arm pain, no low back pain, no leg numbness/tingling Integumentary: no rash, no pruritis, no wounds, no jaundice Neurological: no transient paralysis, no seizures, no tremors Psychiatric: anxiety, hallucinations, depression Endocrine: no cold intolerance, no excessive thirst, no polydipsia, no weight change Hematologic/Lymphatic: no easy bruising, no lymphedema Allergic/Immunologic: no persistent infections Exam - Constitutional General appearance: Present: no acute distress, well-nourished - EENT Eyes: Present: PERRL ENT: hearing intact, clear oral mucosa - Neck Neck: Present: supple, normal ROM - Respiratory Respiratory effort: normal Respiratory: bilateral: CTA - Cardiovascular Heart Sounds: Present: S1 & S2. Absent: rub, click - Extremities Extremities: pulses symmetrical, No edema Peripheral Pulses: within normal limits - Abdominal General gastrointestinal: Present: soft, non-tender, non-distended, normal bowel sounds Male genitourinary: Present: normal - Integumentary Integumentary: Present: clear, warm, dry - Musculoskeletal Musculoskeletal: gait normal, strength equal bilaterally - Psychiatric Psychiatric: appropriate mood/affect, intact judgment & insight - Neurologic Neurologic: CNII-XII intact, moves all extremities Assessment and Plan - Patient Problems (1) Vascular dementia with behavioral disturbance Current Visit: Yes Status: Acute Plan to address problem: Verbal prompting, verbal redirection, supportive care, benzodiazepine therapy as clinically indicated. (2) Hypertension Current Visit: Yes Status: Acute Qualifiers: Hypertension type: essential hypertension Qualified Code(s): I10 - Essential (primary) hypertension Plan to address problem: Monitor blood pressure every shift, continue medical management (3) Nicotine dependence Current Visit: Yes Status: Acute Qualifiers: Nicotine product type: cigarettes Substance use status: in withdrawal Qualified Code(s): F17.213 - Nicotine dependence, cigarettes, with withdrawal Plan to address problem: Smoking cessation counseling, supportive care, behavior change counseling, +15 minutes (4) Upper respiratory tract infection Current Visit: Yes Status: Acute Plan to address problem: Empirical antibiotic therapy, supportive care.
[2020-08-01] MEDS: levoFLOXacin 500 MG TAB PO SCH (20:56)
[2020-08-01] MEDS: clonazePAM 0.5 MG TAB PO SCH (21:32)
[2020-08-01] MEDS: DIVALPROEX ER 500 MG TAB PO SCH (21:33)
[2020-08-01] MEDS: NICOTINE 21 MG/24 HR PATCH TD SCH ×2 (21:33→21:34)
[2020-08-01] MEDS ORDERED: TOPIRAMATE PO SCH (22:00)
--- NOTE | 2020-08-02 08:58 | History and Physical Report ---
GP History & Physical - History of Present Illness Date of admission: 08/01/20 Date of Examination: 08/02/20 Reason for Admission: Danger to self, Failure of Outpatient Treatment, Severe anxiety/depression History of Present Illness: Per ER note: "The patient is a 65-year-old male present with a chief complaint of suicidal ideation and depression. Patient states she has been depressed and suffering from auditory hallucinations which bother him all night. The patient states over the past 2 weeks he has consumed a total of 270 Ultram (the last 6-year-old which he consumed between 07/26-07/29). The patient states he also consumed a total of 90 Ativan between 07/26 - 07/29. The patient states he would just continue to eat "eat" these pills and would intermittently be in a "stupor." The patient states if he leaves this hospital he is going to go cut his wrist. When asked how he is feeling the patient states he just feels "shaky" inside and is requesting Klonopin." Enid Izaguirre is a 65y/o patient I initially saw in the ED, he is lying in bed awake. He is a/o x 3. He is anxious. The patient says he attempted to end his life by taking pills. The patient verbalizes being very anxious and depressed. He says he is hearing voices and unable to tell what they are saying. He says they are mumbling. He still verbalizes SI with no plan. The patient says he did not sleep well. PAST PSYCHIATRIC HISTORY Diagnoses: bipolar, anxiety, MDD, PTSD Suicide attempts or Self-harm behavior: Yes Prior psychiatric hospitalizations: Yes multiple Substance Abuse history: Rx drugs Previous psychiatric medications tried: Depakote Outpatient treatment: Yes PAST MEDICAL HISTORY: HTN Family Psychiatric History: None reported or documented SOCIAL HISTORY Marital Status: Living Arrangements: residential Employment Status: Disabled Access to guns/weapons: Denies Education: GED History of Abuse: Denies Legal History: Denies REVIEW OF SYSTEMS Constitutional: Negative for weight loss ENT: Negative for stridor Respiratory: Negative for cough or hemoptysis All other systems reviewed and are negative MENTAL STATUS EXAMINATION General Appearance and Behavior: Age appropriate, dressed appropriately, lying in bed, poor eye contact, cooperative with questioning, anxious Cooperation: Withdrawn Psychomotor Behavior: unremarkable and within normal limits Mood: Depressed Affect and affective range: restricted Thought Process: goal directed Thought Content: hallucinations, SI, hopelessness Speech: normal tone and pace Intellectual Functioning: Average Suicidal Ideation: Suicidal with no plan Homicidal Ideation: Denies HI Hallucinations: Auditory Delusions: None elicited Impulse Control: Impaired Insight and Judgment: Limited insight and judgment, Impaired Memory: Normal Attention: Normal Orientation:a/o Assessment and Plan (1) Bipolar Disorder, Current Episode Depressed with Psychotic Features Current Visit: Yes Status: Acute (2) Generalized Anxiety Disorder Current Visit: Yes Status: Acute RECOMMENDATIONS Treatment Plan Patient admitted for inpatient psychiatric evaluation, medication adjustment and close monitoring The patient's behavior, mood, sleep and appetite will be closely monitored. Patient enrolled in individual and group therapeutic sessions and encouraged to attend. Patient provided with a safe and structured environment. Patient's physical health needs will be addressed by the Hospitalist. Hospitalist Consulted Labs including CBC, CMP, Lipid profile and Hemoglobin A1C levels ordered for baseline reference Social Assessment will be completed and the Manager [place] will work with patient and family to ensure a suitable and safe disposition Medication adjustment will be made as clinically indicated Continue Home meds and previous medications started Start Risperidone 0.25mg po BID Usual Wellness Yazdanism/Preservation: - Start Trazodone 50 mg po QHS & 50 mg po QHS PRN between 10 PM & 2 AM for insomnia - Start Melatonin 5 mg po QHS to promote circadian rhythm - Start [place]-3 for brain health, reduce impulsivity, and as adjunctive treatment for mood disorder, continue upon discharge given overall benefits. - Start B1 prophylaxis with 200 mg po for 5 days The patient agreed on the treatment plan, understood the risk, benefit, alternative treatment, potential consequence of no treatment, and gave informed consent. Initial Certification I certify that the inpatient psychiatric services are required for treatment that could reasonably be expected to improve the patient's condition of hallucinations, depression and suicidal thoughts. Estimated days: 7 Post hospital care: primary care provider, psychiatric provider Legal Status: Voluntary Patient Problems: Current Active Problems Hypertension (Acute) Nicotine dependence (Acute) Upper respiratory tract infection (Acute) Vascular dementia with behavioral disturbance (Acute) Reaction to Hospitalization: Accepting Medications and Allergies Allergies Allergy/AdvReac Type Severity Reaction Status Date / Time buspirone HCl [From BuSpar] AdvReac PSYCHOTIC Verified 05/14/18 16:59 haloperidol [From Haldol] AdvReac HANDS Verified 05/14/18 16:59 SWELL / PSYCHOTIC haloperidol lactate AdvReac HANDS Verified 05/14/18 16:59 [From Haldol] SWELL / PSYCHOTIC olanzapine [From Zyprexa] AdvReac PSYCHOTIC Verified 05/14/18 16:59 quetiapine fumarate AdvReac PSYCHOTIC Verified 05/14/18 16:59 [From Seroquel] Home Medications Medication Instructions Recorded Confirmed Last Taken Type amLODIPine 10 mg PO DAILY 04/26/20 07/31/20 07/31/20 07:00 History Divalproex ER [Depakote ER] 500 mg PO BID #60 tablet 04/28/20 07/31/20 07/31/20 07:00 Rx Venlafaxine [Effexor] 300 mg PO DAILY #30 tablet 04/28/20 07/31/20 07:00 Rx buPROPion [Wellbutrin] 150 mg PO DAILY #30 04/28/20 07/31/20 07/31/20 07:00 Rx clonazePAM [KlonoPIN] 0.5 mg PO BID #30 tablet 04/28/20 07/31/20 07:00 Rx Gabapentin 900 mg PO TID 07/31/20 07/31/20 07/31/20 07:00 History Lisinopril 20 mg PO DAILY 07/31/20 07/31/20 07/31/20 07:00 History Topiramate 60 mg PO BID 07/31/20 07/31/20 07/31/20 07:00 History amLODIPine 20 mg PO DAILY 07/31/20 07/31/20 07/31/20 07:00 History hydrOXYzine PAMOATE 50 mg PO TID PRN 07/31/20 07/31/20 07/31/20 07:00 History traMADoL 50 mg PO QID PRN 07/31/20 07/31/20 07/31/20 07:00 History Paliperidone [Invega] 9 mg PO QHS 08/01/20 08/01/20 Unknown History traZODone 150 mg PO DAILY PRN 08/01/20 08/01/20 07/31/20 19:00 History Active Meds: Active Medications Amlodipine Besylate (Amlodipine 10 Mg Tab) 10 mg PO DAILY [facility] Clonazepam (Clonazepam 0.5 Mg Tab) 0.25 mg PO BID [facility] Last Admin: 08/01/20 21:32 Dose: 0.25 mg Documented by: Divalproex Sodium (Divalproex Er 500 Mg Tab) 500 mg PO BID [facility] Last Admin: 08/01/20 21:33 Dose: 500 mg Documented by: Hydroxyzine Pamoate (Hydroxyzine Pamoate 50 Mg Cap) 50 mg PO TID PRN PRN Reason: Anxiety Levofloxacin (Levofloxacin 500 Mg Tab) 500 mg PO Q24HR [facility]; Protocol Stop: 08/05/20 21:42 Last Admin: 08/01/20 20:56 Dose: 500 mg Documented by: Lisinopril (Lisinopril 20 Mg Tab) 20 mg PO QDAY [facility] Miscellaneous Medication (Topiramate) 60 mg PO BID [facility] Nicotine (Nicotine 21 Mg/24 Hr Patch) 21 mg TD QDAY [facility] Last Admin: 08/01/20 21:34 Dose: Not Given Documented by: Trazodone HCl (Trazodone 50 Mg Tab) 150 mg PO QHS PRN PRN Reason: Sleep Last Admin: 08/01/20 21:33 Dose: 150 mg Documented by: Venlafaxine HCl (Venlafaxine 75 Mg Tab) 300 mg PO DAILY [facility] Results - Results Labs/Vitals: Laboratory Last Values Creatinine 1.0 mg/dL (0.8-1.3) 08/02/20 06:26 Estimated GFR > 60 ml/min 08/02/20 06:26 POC Glucose 83 mg/dL (70-105) 08/02/20 06:48 Hemoglobin A1c 5.8 % (4-6) 08/01/20 18:49 Triglycerides 140 mg/dL (2-149) 08/01/20 18:49 Cholesterol 171 mg/dL (50-199) 08/01/20 18:49 LDL Cholesterol Direct 115 mg/dL (50-130) 08/01/20 18:49 HDL Cholesterol 46 mg/dL (40-59) 08/01/20 18:49 Cholesterol/HDL Ratio 3.71 % 08/01/20 18:49 TSH 1.840 mlU/mL (0.270-4.200) 08/01/20 18:49 Last Vital Signs Temp 99.2 F 08/01/20 22:00 Pulse 100 H 08/01/20 22:00 Resp 18 08/01/20 22:00 BP 121/66 08/01/20 22:00 Pulse Ox 98 08/01/20 22:00 Physical Examination - Constitutional Vitals: Vital Signs Temp Pulse Resp BP Pulse Ox 99.2 F 100 H 18 121/66 98 08/01/20 22:00 08/01/20 22:00 08/01/20 22:00 08/01/20 22:00 08/01/20 22:00 Temperature -Last 24 Hours Temperature 99.2 F Mental Status Exam - Vital signs Last Vital Signs Temp 99.2 F 08/01/20 22:00 Pulse 100 H 08/01/20 22:00 Resp 18 08/01/20 22:00 BP 121/66 08/01/20 22:00 Pulse Ox 98 08/01/20 22:00 Physician Certification - Certification Statement Physician Certification Statement: This is an acknowledgement statement that ENID IZAGUIRRE is a 65 year old M who requires inpatient psychiatric admission for treatment which could reasonably be expected to improve the patient's condition for Estimated period of time patient will need to remain in the hospital: [ ] Plan for post-hospital care: [ ]
[2020-08-02] MEDS: risperiDONE 0.25 MG TAB PO SCH ×2 (09:51→21:17)
[2020-08-02] MEDS: levoFLOXacin 500 MG TAB PO SCH (09:51)
[2020-08-02] MEDS: DIVALPROEX ER 500 MG TAB PO SCH ×2 (09:51→21:17)
[2020-08-02] MEDS: VENLAFAXINE 75 MG TAB PO SCH (09:51)
[2020-08-02] MEDS: LISINOPRIL 20 MG TAB PO SCH (09:52)
[2020-08-02] MEDS: amLODIPine 10 MG TAB PO SCH (09:54)
[2020-08-02] MEDS: clonazePAM 0.5 MG TAB PO SCH ×2 (09:57→21:18)
[2020-08-02] MEDS ORDERED: NON-FORMULARY EACH (Lisinopril 20 MG) PO SCH (10:00)
[2020-08-02] MEDS: NICOTINE 21 MG/24 HR PATCH TD SCH (10:00)
[2020-08-02] MEDS: TOPIRAMATE TAB 25 MG TAB PO SCH (21:18)
[2020-08-03] MEDS: TOPIRAMATE TAB 25 MG TAB PO SCH ×2 (10:07→21:03)
[2020-08-03] MEDS: clonazePAM 0.5 MG TAB PO SCH ×2 (10:08→21:02)
[2020-08-03] MEDS: levoFLOXacin 500 MG TAB PO SCH (10:08)
[2020-08-03] MEDS: DIVALPROEX ER 500 MG TAB PO SCH ×2 (10:08→21:03)
[2020-08-03] MEDS: NICOTINE 21 MG/24 HR PATCH TD SCH (10:11)
[2020-08-03] MEDS: amLODIPine 10 MG TAB PO SCH (10:13)
[2020-08-03] MEDS: risperiDONE 0.25 MG TAB PO SCH (10:22)
[2020-08-03] MEDS: VENLAFAXINE 75 MG TAB PO SCH (10:22)
[2020-08-03] MEDS: LISINOPRIL 20 MG TAB PO SCH (10:25)
--- NOTE | 2020-08-03 10:32 | Progress Note ---
Subjective Date of service: 08/03/20 Principal diagnosis: Bipolar disorder Subjective Comment: Psych progress Patient seen this a.m. patient reports that he is feeling sad and down, endorses suicidal ideation, and auditory hallucinations. Patient reports he is feeling fear because of thoughts of wanting to . REVIEW OF SYSTEMS Constitutional: Negative for weight loss ENT: Negative for stridor Respiratory: Negative for cough or hemoptysis All other systems reviewed and are negative MENTAL STATUS EXAMINATION General Appearance and Behavior: Age appropriate, good hygiene, wearing appropriate clothes, good eye contact, cooperative polite with questioning. Cooperation: Participating/engaged Psychomotor Behavior: unremarkable and within normal limits Mood: Good Affect and affective range: congruent with mood Thought Process: ilogical, Thought Content: paranoid Speech: Normal volume, Regular rate and rhythm, Intellectual Functioning: Average Suicidal Ideation: SI Homicidal Ideation: Denies HI Impulse Control: Unimpaired Insight and Judgment: Normal insight and judgment, Memory: Normal, Attention: Normal, Orientation: Alert, oriented, Assessment and Plan - Psychiatric problem (1) Schizoaffective disorder, bipolar type Current Visit: Yes Status: Acute (2) Major depressive disorder, severe Current Visit: Yes Status: Acute (3) Substance use disorder Current Visit: Yes Status: Acute Treatment Plan Start patient on Invega p.o. 9 mg and discontinue trazodone Patient admitted for inpatient psychiatric evaluation, medication adjustment and close monitoring The patient's behavior, mood, sleep and appetite will be closely monitored. Patient enrolled in individual and group therapeutic sessions and encouraged to attend. Patient provided with a safe and structured environment. Patient's physical health needs will be addressed by the Hospitalist. Hospitalist Consulted Labs including CBC, CMP, Lipid profile and Hemoglobin A1C levels ordered for baseline reference Social Assessment will be completed and the [employer] [employer] will work with patient and family to ensure a suitable and safe disposition Medication adjustment will be made as clinically indicated Usual Wellness Adventism/Preservation: - Start Trazodone 50 mg po QHS & 50 mg po QHS PRN between 10 PM & 2 AM for insomnia - Start Melatonin 5 mg po QHS to promote circadian rhythm - Start [place]-3 for brain health, reduce impulsivity, and as adjunctive treatment for mood disorder, continue upon discharge given overall benefits. - Start B1 prophylaxis with 200 mg po for 5 days The patient agreed on the treatment plan, understood the risk, benefit, alternative treatment, potential consequence of no treatment, and gave informed consent. Initial Certification Inpatient psych services: I certify that the inpatient psychiatric services are required for treatment that could reasonably be expected to improve the patient's condition. Estimated days: 7 Post hospital care: primary care provider, psychiatric provider Medications and Allergies Allergies Allergy/AdvReac Type Severity Reaction Status Date / Time buspirone HCl [From BuSpar] AdvReac PSYCHOTIC Verified 05/14/18 16:59 haloperidol [From Haldol] AdvReac HANDS Verified 05/14/18 16:59 SWELL / PSYCHOTIC haloperidol lactate AdvReac HANDS Verified 05/14/18 16:59 [From Haldol] SWELL / PSYCHOTIC olanzapine [From Zyprexa] AdvReac PSYCHOTIC Verified 05/14/18 16:59 quetiapine fumarate AdvReac PSYCHOTIC Verified 05/14/18 16:59 [From Seroquel] Home Medications Medication Instructions Recorded Confirmed Last Taken Type amLODIPine 10 mg PO DAILY 04/26/20 07/31/20 07/31/20 07:00 History Divalproex ER [Depakote ER] 500 mg PO BID #60 tablet 04/28/20 07/31/20 07/31/20 07:00 Rx Venlafaxine [Effexor] 300 mg PO DAILY #30 tablet 04/28/20 07/31/20 07:00 Rx buPROPion [Wellbutrin] 150 mg PO DAILY #30 04/28/20 07/31/20 07/31/20 07:00 Rx clonazePAM [KlonoPIN] 0.5 mg PO BID #30 tablet 04/28/20 07/31/20 07:00 Rx Gabapentin 900 mg PO TID 07/31/20 07/31/20 07/31/20 07:00 History Lisinopril 20 mg PO DAILY 07/31/20 07/31/20 07/31/20 07:00 History Topiramate 60 mg PO BID 07/31/20 07/31/20 07/31/20 07:00 History amLODIPine 20 mg PO DAILY 07/31/20 07/31/20 07/31/20 07:00 History hydrOXYzine PAMOATE 50 mg PO TID PRN 07/31/20 07/31/20 07/31/20 07:00 History traMADoL 50 mg PO QID PRN 07/31/20 07/31/20 07/31/20 07:00 History Paliperidone [Invega] 9 mg PO QHS 08/01/20 08/01/20 Unknown History traZODone 150 mg PO DAILY PRN 08/01/20 08/01/20 07/31/20 19:00 History Active Meds: Active Medications Amlodipine Besylate (Amlodipine 10 Mg Tab) 10 mg PO DAILY [facility] Last Admin: 08/03/20 10:13 Dose: Not Given Documented by: Clonazepam (Clonazepam 0.5 Mg Tab) 0.25 mg PO BID [facility] Last Admin: 08/03/20 10:08 Dose: 0.25 mg Documented by: Divalproex Sodium (Divalproex Er 500 Mg Tab) 500 mg PO BID [facility] Last Admin: 08/03/20 10:08 Dose: 500 mg Documented by: Hydroxyzine Pamoate (Hydroxyzine Pamoate 50 Mg Cap) 50 mg PO TID PRN PRN Reason: Anxiety Levofloxacin (Levofloxacin 500 Mg Tab) 500 mg PO Q24HR [facility]; Protocol Stop: 08/05/20 21:42 Last Admin: 08/03/20 10:08 Dose: 500 mg Documented by: Lisinopril (Lisinopril 20 Mg Tab) 20 mg PO QDAY [facility] Last Admin: 08/03/20 10:25 Dose: Not Given Documented by: Nicotine (Nicotine 21 Mg/24 Hr Patch) 21 mg TD QDAY [facility] Last Admin: 08/03/20 10:11 Dose: Not Given Documented by: Risperidone (Risperidone 0.25 Mg Tab) 0.25 mg PO BID [facility] Last Admin: 08/03/20 10:22 Dose: 0.25 mg Documented by: Topiramate (Topiramate Tab 25 Mg Tab) 25 mg PO BID [facility] Last Admin: 08/03/20 10:07 Dose: 25 mg Documented by: Trazodone HCl (Trazodone 50 Mg Tab) 150 mg PO QHS PRN PRN Reason: Sleep Last Admin: 08/01/20 21:33 Dose: 150 mg Documented by: Venlafaxine HCl (Venlafaxine 75 Mg Tab) 300 mg PO DAILY [facility] Last Admin: 08/03/20 10:22 Dose: 300 mg Documented by: Results - Results Labs/Vitals: Laboratory Last Values Creatinine 1.0 mg/dL (0.8-1.3) 08/02/20 06:26 Estimated GFR > 60 ml/min 08/02/20 06:26 POC Glucose 83 mg/dL (70-105) 08/02/20 06:48 Hemoglobin A1c 5.8 % (4-6) 08/01/20 18:49 Triglycerides 140 mg/dL (2-149) 08/01/20 18:49 Cholesterol 171 mg/dL (50-199) 08/01/20 18:49 LDL Cholesterol Direct 115 mg/dL (50-130) 08/01/20 18:49 HDL Cholesterol 46 mg/dL (40-59) 08/01/20 18:49 Cholesterol/HDL Ratio 3.71 % 08/01/20 18:49 TSH 1.840 mlU/mL (0.270-4.200) 08/01/20 18:49 Last Vital Signs Temp 98.0 F 08/03/20 09:13 Pulse 92 H 08/03/20 10:25 Resp 16 08/03/20 09:13 BP 83/50 08/03/20 10:25 Pulse Ox 94 08/03/20 09:13
[2020-08-03] MEDS: PALIPERIDONE ER 3 MG TAB PO SCH (14:54)
--- NOTE | 2020-08-04 09:01 | Progress Note ---
Subjective Date of service: 08/04/20 Principal diagnosis: Bipolar disorder Subjective Comment: Psych Nurse: pt spent the evening laying in bed, presents with flat affect and depressed mood, able to make needs known, reported not feeling good, when pt was asked to elaborate, he states, "don't worry, I will be alright". pt consumed 100% of bedtime snack, medication compliant, denies si/hi, denies a/v/h, no distress noted, will continue to monitor for safety. Psych progress Patient seen this a.m. reports not feeling too good states he has been getting well less than the normal dose of his anxiety medication of lorazepam which is usually 1 mg 3 times a day. Patient reports his sleep has been on and off just because of his worsening anxiety but denies any suicidal ideation or homicidal ideation at this Reason for inpatient admission: Planning for safety discharge. REVIEW OF SYSTEMS Constitutional: Negative for weight loss ENT: Negative for stridor Respiratory: Negative for cough or hemoptysis All other systems reviewed and are negative MENTAL STATUS EXAMINATION General Appearance and Behavior: Age appropriate, good hygiene, wearing appropriate clothes, good eye contact, cooperative polite with questioning. Cooperation: Participating/engaged Psychomotor Behavior: unremarkable and within normal limits Mood: not good, anxious Affect and affective range: congruent with mood Thought Process: ilogical, Thought Content: paranoid Speech: Normal volume, Regular rate and rhythm, Intellectual Functioning: Average Suicidal Ideation: deneis Homicidal Ideation: Denies HI Impulse Control: Unimpaired Insight and Judgment: Normal insight and judgment, Memory: Normal, Attention: Normal, Orientation: Alert, oriented, Assessment and Plan - Psychiatric problem (1) Schizoaffective disorder, bipolar type Current Visit: Yes Status: Acute (2) Major depressive disorder, severe Current Visit: Yes Status: Acute (3) Substance use disorder Current Visit: Yes Status: Acute Treatment Plan Start patient on Invega p.o. 9 mg and discontinue trazodone Patient admitted for inpatient psychiatric evaluation, medication adjustment and close monitoring The patient's behavior, mood, sleep and appetite will be closely monitored. Patient enrolled in individual and group therapeutic sessions and encouraged to attend. Patient provided with a safe and structured environment. Patient's physical health needs will be addressed by the Hospitalist. Hospitalist Consulted Labs including CBC, CMP, Lipid profile and Hemoglobin A1C levels ordered for baseline reference Social Assessment will be completed and the Supervisor Ore Dressing will work with patient and family to ensure a suitable and safe disposition Medication adjustment will be made as clinically indicated Usual Wellness Advent/Preservation: - Start Trazodone 50 mg po QHS & 50 mg po QHS PRN between 10 PM & 2 AM for insomnia - Start Melatonin 5 mg po QHS to promote circadian rhythm - Start [place]-3 for brain health, reduce impulsivity, and as adjunctive treatment for mood disorder, continue upon discharge given overall benefits. - Start B1 prophylaxis with 200 mg po for 5 days The patient agreed on the treatment plan, understood the risk, benefit, alternative treatment, potential consequence of no treatment, and gave informed consent. Initial Certification Inpatient psych services: I certify that the inpatient psychiatric services are required for treatment that could reasonably be expected to improve the patient's condition. Estimated days: 4 Post hospital care: primary care provider, psychiatric provider Medications and Allergies Allergies Allergy/AdvReac Type Severity Reaction Status Date / Time buspirone HCl [From BuSpar] AdvReac PSYCHOTIC Verified 05/14/18 16:59 haloperidol [From Haldol] AdvReac HANDS Verified 05/14/18 16:59 SWELL / PSYCHOTIC haloperidol lactate AdvReac HANDS Verified 05/14/18 16:59 [From Haldol] SWELL / PSYCHOTIC olanzapine [From Zyprexa] AdvReac PSYCHOTIC Verified 05/14/18 16:59 quetiapine fumarate AdvReac PSYCHOTIC Verified 05/14/18 16:59 [From Seroquel] Home Medications Medication Instructions Recorded Confirmed Last Taken Type amLODIPine 10 mg PO DAILY 04/26/20 08/03/20 07/31/20 07:00 History Divalproex ER [Depakote ER] 500 mg PO BID #60 tablet 04/28/20 08/03/20 07/31/20 07:00 Rx Venlafaxine [Effexor] 300 mg PO DAILY #30 tablet 04/28/20 08/03/20 07/31/20 07:00 Rx buPROPion [Wellbutrin] 150 mg PO DAILY #30 04/28/20 08/03/20 07/31/20 07:00 Rx clonazePAM [KlonoPIN] 0.5 mg PO BID #30 tablet 04/28/20 08/03/20 07/31/20 07:00 Rx Gabapentin 900 mg PO TID 07/31/20 08/03/20 07/31/20 07:00 History Lisinopril 20 mg PO DAILY 07/31/20 08/03/20 07/31/20 07:00 History Topiramate 60 mg PO BID 07/31/20 08/03/20 07/31/20 07:00 History amLODIPine 20 mg PO DAILY 07/31/20 08/03/20 07/31/20 07:00 History hydrOXYzine PAMOATE 50 mg PO TID PRN 07/31/20 08/03/20 07/31/20 07:00 History traMADoL 50 mg PO QID PRN 07/31/20 08/03/20 07/31/20 07:00 History Paliperidone [Invega] 9 mg PO QHS 08/01/20 08/03/20 Unknown History traZODone 150 mg PO DAILY PRN 08/01/20 08/03/20 07/31/20 19:00 History Active Meds: Active Medications Amlodipine Besylate (Amlodipine 10 Mg Tab) 10 mg PO DAILY [facility] Last Admin: 08/03/20 10:13 Dose: Not Given Documented by: Divalproex Sodium (Divalproex Er 500 Mg Tab) 500 mg PO BID [facility] Last Admin: 08/03/20 21:03 Dose: 500 mg Documented by: Hydroxyzine Pamoate (Hydroxyzine Pamoate 50 Mg Cap) 50 mg PO TID PRN PRN Reason: Anxiety Levofloxacin (Levofloxacin 500 Mg Tab) 500 mg PO Q24HR [facility]; Protocol Stop: 08/05/20 21:42 Last Admin: 08/03/20 10:08 Dose: 500 mg Documented by: Lisinopril (Lisinopril 20 Mg Tab) 20 mg PO QDAY [facility] Last Admin: 08/03/20 10:25 Dose: Not Given Documented by: Nicotine (Nicotine 21 Mg/24 Hr Patch) 21 mg TD QDAY [facility] Last Admin: 08/03/20 10:11 Dose: Not Given Documented by: Paliperidone (Paliperidone Er 3 Mg Tab) 6 mg PO QDAY [facility] Last Admin: 08/03/20 14:54 Dose: 6 mg Documented by: Topiramate (Topiramate Tab 25 Mg Tab) 25 mg PO BID [facility] Last Admin: 08/03/20 21:03 Dose: 25 mg Documented by: Trazodone HCl (Trazodone 50 Mg Tab) 150 mg PO QHS PRN PRN Reason: Sleep Last Admin: 08/01/20 21:33 Dose: 150 mg Documented by: Venlafaxine HCl (Venlafaxine 75 Mg Tab) 300 mg PO DAILY [facility] Last Admin: 08/03/20 10:22 Dose: 300 mg Documented by: Results - Results Labs/Vitals: Laboratory Last Values Creatinine 1.0 mg/dL (0.8-1.3) 08/02/20 06:26 Estimated GFR > 60 ml/min 08/02/20 06:26 POC Glucose 83 mg/dL (70-105) 08/02/20 06:48 Hemoglobin A1c 5.8 % (4-6) 08/01/20 18:49 Triglycerides 140 mg/dL (2-149) 08/01/20 18:49 Cholesterol 171 mg/dL (50-199) 08/01/20 18:49 LDL Cholesterol Direct 115 mg/dL (50-130) 08/01/20 18:49 HDL Cholesterol 46 mg/dL (40-59) 08/01/20 18:49 Cholesterol/HDL Ratio 3.71 % 08/01/20 18:49 TSH 1.840 mlU/mL (0.270-4.200) 08/01/20 18:49 Last Vital Signs Temp 98.0 F 08/03/20 22:00 Pulse 91 H 08/03/20 22:00 Resp 15 08/03/20 22:00 BP 105/63 08/03/20 22:00 Pulse Ox 99 08/03/20 22:00
[2020-08-04] MEDS: VENLAFAXINE 75 MG TAB PO SCH (09:26)
[2020-08-04] MEDS: DIVALPROEX ER 500 MG TAB PO SCH ×2 (09:26→23:00)
[2020-08-04] MEDS: amLODIPine 10 MG TAB PO SCH (09:26)
[2020-08-04] MEDS: levoFLOXacin 500 MG TAB PO SCH (09:27)
[2020-08-04] MEDS: LISINOPRIL 20 MG TAB PO SCH (09:27)
[2020-08-04] MEDS: TOPIRAMATE TAB 25 MG TAB PO SCH ×2 (09:27→23:00)
[2020-08-04] MEDS: PALIPERIDONE ER 3 MG TAB PO SCH (09:28)
[2020-08-04] MEDS ORDERED: clonazePAM 0.5 MG TAB PO ONE (09:30)
[2020-08-04] MEDS: NICOTINE 21 MG/24 HR PATCH TD SCH (09:34)
[2020-08-04] MEDS ORDERED: clonazePAM 0.5 MG TAB PO SCH (14:00)
[2020-08-04] MEDS: clonazePAM 0.5 MG TAB PO SCH ×2 (14:48→20:40)
[2020-08-05] MEDS: clonazePAM 0.5 MG TAB PO SCH ×3 (08:00→21:18)
--- NOTE | 2020-08-05 08:28 | Progress Note ---
Subjective Date of service: 08/05/20 Principal diagnosis: Bipolar disorder Subjective Comment: Psych Nurse: Received patient in bed awake, aox3, he respond to greeting, pt verbalized sleeping well, he said he want to go home, staff reassured pt that the doctor will be here to see him, he denies si/hi and avh at present. Will continue to monitor. Psych progress Patient describes a good and stable mood, denies being depressed or excessively nervous. Patient eats and sleeps well. Patient denies panic attacks, recurrent nightmares or flashbacks. Patient denies symptoms suggestive of OCD or PTSD. Patient denies hallucinations, paranoia, thought interference and no features suggestive of hypomania or efrain. Patiently completely denies suicidal or homicidal thoughts. Reason for inpatient admission: Planning for safety discharge. REVIEW OF SYSTEMS Constitutional: Negative for weight loss ENT: Negative for stridor Respiratory: Negative for cough or hemoptysis All other systems reviewed and are negative MENTAL STATUS EXAMINATION General Appearance and Behavior: Age appropriate, good hygiene, wearing appropriate clothes, good eye contact, cooperative polite with questioning. Cooperation: Participating/engaged Psychomotor Behavior: unremarkable and within normal limits Mood: not good, anxious Affect and affective range: congruent with mood Thought Process: ilogical, Thought Content: paranoid Speech: Normal volume, Regular rate and rhythm, Intellectual Functioning: Average Suicidal Ideation: deneis Homicidal Ideation: Denies HI Impulse Control: Unimpaired Insight and Judgment: Normal insight and judgment, Memory: Normal, Attention: Normal, Orientation: Alert, oriented, Assessment and Plan - Psychiatric problem (1) Schizoaffective disorder, bipolar type Current Visit: Yes Status: Acute (2) Major depressive disorder, severe Current Visit: Yes Status: Acute (3) Substance use disorder Current Visit: Yes Status: Acute Treatment Plan Continue current medication Patient admitted for inpatient psychiatric evaluation, medication adjustment and close monitoring The patient's behavior, mood, sleep and appetite will be closely monitored. Patient enrolled in individual and group therapeutic sessions and encouraged to attend. Patient provided with a safe and structured environment. Patient's physical health needs will be addressed by the Hospitalist. Hospitalist Consulted Labs including CBC, CMP, Lipid profile and Hemoglobin A1C levels ordered for baseline reference Social Assessment will be completed and the [place] Operator will work with patient and family to ensure a suitable and safe disposition Medication adjustment will be made as clinically indicated Usual Wellness Yazidi/Preservation: - Start Trazodone 50 mg po QHS & 50 mg po QHS PRN between 10 PM & 2 AM for insomnia - Start Melatonin 5 mg po QHS to promote circadian rhythm - Start [place]-3 for brain health, reduce impulsivity, and as adjunctive treatment for mood disorder, continue upon discharge given overall benefits. - Start B1 prophylaxis with 200 mg po for 5 days The patient agreed on the treatment plan, understood the risk, benefit, alternative treatment, potential consequence of no treatment, and gave informed consent. Initial Certification Inpatient psych services: I certify that the inpatient psychiatric services are required for treatment that could reasonably be expected to improve the patient's condition. Estimated days: 4 Post hospital care: primary care provider, psychiatric provider Medications and Allergies Allergies Allergy/AdvReac Type Severity Reaction Status Date / Time buspirone HCl [From BuSpar] AdvReac PSYCHOTIC Verified 05/14/18 16:59 haloperidol [From Haldol] AdvReac HANDS Verified 05/14/18 16:59 SWELL / PSYCHOTIC haloperidol lactate AdvReac HANDS Verified 05/14/18 16:59 [From Haldol] SWELL / PSYCHOTIC olanzapine [From Zyprexa] AdvReac PSYCHOTIC Verified 05/14/18 16:59 quetiapine fumarate AdvReac PSYCHOTIC Verified 05/14/18 16:59 [From Seroquel] Home Medications Medication Instructions Recorded Confirmed Last Taken Type amLODIPine 10 mg PO DAILY 04/26/20 08/03/20 07/31/20 07:00 History Divalproex ER [Depakote ER] 500 mg PO BID #60 tablet 04/28/20 08/03/20 07/31/20 07:00 Rx Venlafaxine [Effexor] 300 mg PO DAILY #30 tablet 04/28/20 08/03/20 07/31/20 07:00 Rx buPROPion [Wellbutrin] 150 mg PO DAILY #30 04/28/20 08/03/20 07/31/20 07:00 Rx clonazePAM [KlonoPIN] 0.5 mg PO BID #30 tablet 04/28/20 08/03/20 07/31/20 07:00 Rx Gabapentin 900 mg PO TID 07/31/20 08/03/20 07/31/20 07:00 History Lisinopril 20 mg PO DAILY 0208/03/20 07/31/20 07:00 History Topiramate 60 mg PO BID 07/31/20 08/03/20 07/31/20 07:00 History amLODIPine 20 mg PO DAILY 07/31/20 08/03/20 07/31/20 07:00 History hydrOXYzine PAMOATE 50 mg PO TID PRN 07/31/20 08/03/20 07/31/20 07:00 History traMADoL 50 mg PO QID PRN 07/31/20 08/03/20 07/31/20 07:00 History Paliperidone [Invega] 9 mg PO QHS 08/01/20 08/03/20 Unknown History traZODone 150 mg PO DAILY PRN 08/01/20 08/03/20 07/31/20 19:00 History Active Meds: Active Medications Amlodipine Besylate (Amlodipine 10 Mg Tab) 10 mg PO DAILY [facility] Last Admin: 08/04/20 09:26 Dose: Not Given Documented by: Clonazepam (Clonazepam 0.5 Mg Tab) 0.5 mg PO TID [facility] Last Admin: 08/05/20 08:00 Dose: 0.5 mg Documented by: Divalproex Sodium (Divalproex Er 500 Mg Tab) 500 mg PO BID [facility] Last Admin: 08/04/20 23:00 Dose: 500 mg Documented by: Hydroxyzine Pamoate (Hydroxyzine Pamoate 50 Mg Cap) 50 mg PO TID PRN PRN Reason: Anxiety Levofloxacin (Levofloxacin 500 Mg Tab) 500 mg PO Q24HR [facility]; Protocol Stop: 08/05/20 21:42 Last Admin: 08/04/20 09:27 Dose: 500 mg Documented by: Lisinopril (Lisinopril 20 Mg Tab) 20 mg PO QDAY [facility] Last Admin: 08/04/20 09:27 Dose: Not Given Documented by: Nicotine (Nicotine 21 Mg/24 Hr Patch) 21 mg TD QDAY [facility] Last Admin: 08/04/20 09:34 Dose: Not Given Documented by: Paliperidone (Paliperidone Er 3 Mg Tab) 6 mg PO QDAY [facility] Last Admin: 08/04/20 09:28 Dose: 6 mg Documented by: Topiramate (Topiramate Tab 25 Mg Tab) 25 mg PO BID [facility] Last Admin: 08/04/20 23:00 Dose: 25 mg Documented by: Trazodone HCl (Trazodone 50 Mg Tab) 150 mg PO QHS PRN PRN Reason: Sleep Last Admin: 08/01/20 21:33 Dose: 150 mg Documented by: Venlafaxine HCl (Venlafaxine 75 Mg Tab) 300 mg PO DAILY [facility] Last Admin: 08/04/20 09:26 Dose: 300 mg Documented by: Results - Results Labs/Vitals: Laboratory Last Values Creatinine 1.0 mg/dL (0.8-1.3) 08/02/20 06:26 Estimated GFR > 60 ml/min 08/02/20 06:26 POC Glucose 83 mg/dL (70-105) 08/02/20 06:48 Hemoglobin A1c 5.8 % (4-6) 08/01/20 18:49 Triglycerides 140 mg/dL (2-149) 08/01/20 18:49 Cholesterol 171 mg/dL (50-199) 08/01/20 18:49 LDL Cholesterol Direct 115 mg/dL (50-130) 08/01/20 18:49 HDL Cholesterol 46 mg/dL (40-59) 08/01/20 18:49 Cholesterol/HDL Ratio 3.71 % 08/01/20 18:49 TSH 1.840 mlU/mL (0.270-4.200) 08/01/20 18:49 Last Vital Signs Temp 97.9 F 08/05/20 08:09 Pulse 96 H 08/05/20 08:09 Resp 19 08/05/20 08:09 BP 130/65 08/05/20 08:09 Pulse Ox 99 08/05/20 08:09
[2020-08-05] MEDS: PALIPERIDONE ER 3 MG TAB PO SCH (09:24)
[2020-08-05] MEDS: NICOTINE 21 MG/24 HR PATCH TD SCH (09:25)
[2020-08-05] MEDS: TOPIRAMATE TAB 25 MG TAB PO SCH ×2 (09:25→21:18)
[2020-08-05] MEDS: DIVALPROEX ER 500 MG TAB PO SCH ×2 (09:25→21:18)
[2020-08-05] MEDS: LISINOPRIL 20 MG TAB PO SCH (09:25)
[2020-08-05] MEDS: amLODIPine 10 MG TAB PO SCH (09:25)
[2020-08-05] MEDS: levoFLOXacin 500 MG TAB PO SCH (09:25)
[2020-08-05] MEDS: VENLAFAXINE 75 MG TAB PO SCH (09:25)
--- NOTE | 2020-08-06 07:48 | Progress Note ---
Subjective Date of service: 08/06/20 Principal diagnosis: Bipolar disorder Subjective Comment: Psych Nurse: Patient has spent the day resting in bed. He slept off and on. His interactions are pleasant and cooperative. He has a good appetite eating 100% of meals. He states he feels "better". He denies si/hi/ah/vh. He has been medication compliant. Will continue to monitor patient for safety. Psych progress Patient describes a good and stable mood, denies being depressed or excessively nervous. Patient eats and sleeps well. Patient denies panic attacks, recurrent nightmares or flashbacks. Patient denies symptoms suggestive of OCD or PTSD. Patient denies hallucinations, paranoia, thought interference and no features suggestive of hypomania or efrain. Patiently completely denies suicidal or homicidal thoughts. Reason for inpatient admission: Planning for safety discharge. REVIEW OF SYSTEMS Constitutional: Negative for weight loss ENT: Negative for stridor Respiratory: Negative for cough or hemoptysis All other systems reviewed and are negative MENTAL STATUS EXAMINATION General Appearance and Behavior: Age appropriate, good hygiene, wearing appropriate clothes, good eye contact, cooperative polite with questioning. Cooperation: Participating/engaged Psychomotor Behavior: unremarkable and within normal limits Mood: good Affect and affective range: congruent with mood Thought Process: logical, Thought Content: within reality Speech: Normal volume, Regular rate and rhythm, Intellectual Functioning: Average Suicidal Ideation: denies Homicidal Ideation: Denies HI Impulse Control: Unimpaired Insight and Judgment: Normal insight and judgment, Memory: Normal, Attention: Normal, Orientation: Alert, oriented, Assessment and Plan - Psychiatric problem (1) Schizoaffective disorder, bipolar type Current Visit: Yes Status: Acute (2) Major depressive disorder, severe Current Visit: Yes Status: Acute (3) Substance use disorder Current Visit: Yes Status: Acute Treatment Plan Continue current medication Patient admitted for inpatient psychiatric evaluation, medication adjustment and close monitoring The patient's behavior, mood, sleep and appetite will be closely monitored. Patient enrolled in individual and group therapeutic sessions and encouraged to attend. Patient provided with a safe and structured environment. Patient's physical health needs will be addressed by the Hospitalist. Hospitalist Consulted Labs including CBC, CMP, Lipid profile and Hemoglobin A1C levels ordered for baseline reference Social Assessment will be completed and the Recycle Worker will work with patient and family to ensure a suitable and safe disposition Medication adjustment will be made as clinically indicated Usual Wellness Synagogue/Preservation: - Start Trazodone 50 mg po QHS & 50 mg po QHS PRN between 10 PM & 2 AM for insomnia - Start Melatonin 5 mg po QHS to promote circadian rhythm - Start [place]-3 for brain health, reduce impulsivity, and as adjunctive treatment for mood disorder, continue upon discharge given overall benefits. - Start B1 prophylaxis with 200 mg po for 5 days The patient agreed on the treatment plan, understood the risk, benefit, alternative treatment, potential consequence of no treatment, and gave informed consent. Initial Certification Inpatient psych services: I certify that the inpatient psychiatric services are required for treatment that could reasonably be expected to improve the patient's condition. Estimated days: 4 Post hospital care: primary care provider, psychiatric provider Medications and Allergies Allergies Allergy/AdvReac Type Severity Reaction Status Date / Time buspirone HCl [From BuSpar] AdvReac PSYCHOTIC Verified 05/14/18 16:59 haloperidol [From Haldol] AdvReac HANDS Verified 05/14/18 16:59 SWELL / PSYCHOTIC haloperidol lactate AdvReac HANDS Verified 05/14/18 16:59 [From Haldol] SWELL / PSYCHOTIC olanzapine [From Zyprexa] AdvReac PSYCHOTIC Verified 05/14/18 16:59 quetiapine fumarate AdvReac PSYCHOTIC Verified 05/14/18 16:59 [From Seroquel] Home Medications Medication Instructions Recorded Confirmed Last Taken Type amLODIPine 10 mg PO DAILY 04/26/20 08/03/20 07/31/20 07:00 History Divalproex ER [Depakote ER] 500 mg PO BID #60 tablet 04/28/20 08/03/20 07/31/20 07:00 Rx Venlafaxine [Effexor] 300 mg PO DAILY #30 tablet 04/28/20 08/03/20 07/31/20 07:00 Rx buPROPion [Wellbutrin] 150 mg PO DAILY #30 04/28/20 08/03/20 07/31/20 07:00 Rx clonazePAM [KlonoPIN] 0.5 mg PO BID #30 tablet 04/28/20 08/03/20 07/31/20 07:00 Rx Gabapentin 900 mg PO TID 07/31/20 08/03/20 07/31/20 07:00 History Lisinopril 20 mg PO DAILY 07/31/20 08/03/20 07/31/20 07:00 History Topiramate 60 mg PO BID 07/31/20 08/03/20 07/31/20 07:00 History amLODIPine 20 mg PO DAILY 07/31/20 08/03/20 07/31/20 07:00 History hydrOXYzine PAMOATE 50 mg PO TID PRN 07/31/20 08/03/20 07/31/20 07:00 History traMADoL 50 mg PO QID PRN 07/31/20 08/03/20 07/31/20 07:00 History Paliperidone [Invega] 9 mg PO QHS 08/01/20 08/03/20 Unknown History traZODone 150 mg PO DAILY PRN 08/01/20 08/03/20 07/31/20 19:00 History Active Meds: Active Medications Amlodipine Besylate (Amlodipine 10 Mg Tab) 10 mg PO DAILY [facility] Last Admin: 08/05/20 09:25 Dose: 10 mg Documented by: Clonazepam (Clonazepam 0.5 Mg Tab) 0.5 mg PO TID [facility] Last Admin: 08/05/20 21:18 Dose: 0.5 mg Documented by: Divalproex Sodium (Divalproex Er 500 Mg Tab) 500 mg PO BID [facility] Last Admin: 08/05/20 21:18 Dose: 500 mg Documented by: Hydroxyzine Pamoate (Hydroxyzine Pamoate 50 Mg Cap) 50 mg PO TID PRN PRN Reason: Anxiety Lisinopril (Lisinopril 20 Mg Tab) 20 mg PO QDAY [facility] Last Admin: 08/05/20 09:25 Dose: 20 mg Documented by: Nicotine (Nicotine 21 Mg/24 Hr Patch) 21 mg TD QDAY [facility] Last Admin: 08/05/20 09:25 Dose: Not Given Documented by: Paliperidone (Paliperidone Er 3 Mg Tab) 6 mg PO QDAY [facility] Last Admin: 08/05/20 09:24 Dose: 6 mg Documented by: Topiramate (Topiramate Tab 25 Mg Tab) 25 mg PO BID [facility] Last Admin: 08/05/20 21:18 Dose: 25 mg Documented by: Trazodone HCl (Trazodone 50 Mg Tab) 150 mg PO QHS PRN PRN Reason: Sleep Last Admin: 08/01/20 21:33 Dose: 150 mg Documented by: Venlafaxine HCl (Venlafaxine 75 Mg Tab) 300 mg PO DAILY [facility] Last Admin: 08/05/20 09:25 Dose: 300 mg Documented by: Results - Results Labs/Vitals: Laboratory Last Values Creatinine 1.0 mg/dL (0.8-1.3) 08/02/20 06:26 Estimated GFR > 60 ml/min 08/02/20 06:26 POC Glucose 83 mg/dL (70-105) 08/02/20 06:48 Hemoglobin A1c 5.8 % (4-6) 08/01/20 18:49 Triglycerides 140 mg/dL (2-149) 08/01/20 18:49 Cholesterol 171 mg/dL (50-199) 08/01/20 18:49 LDL Cholesterol Direct 115 mg/dL (50-130) 08/01/20 18:49 HDL Cholesterol 46 mg/dL (40-59) 08/01/20 18:49 Cholesterol/HDL Ratio 3.71 % 08/01/20 18:49 TSH 1.840 mlU/mL (0.270-4.200) 08/01/20 18:49 Last Vital Signs Temp 98.5 F 08/05/20 19:41 Pulse 80 08/05/20 19:41 Resp 18 08/05/20 19:41 BP 125/67 08/05/20 19:41 Pulse Ox 99 08/05/20 08:09
[2020-08-06] MEDS: VENLAFAXINE 75 MG TAB PO SCH (10:11)
[2020-08-06] MEDS: TOPIRAMATE TAB 25 MG TAB PO SCH (10:11)
[2020-08-06] MEDS: amLODIPine 10 MG TAB PO SCH (10:12)
[2020-08-06] MEDS: PALIPERIDONE ER 3 MG TAB PO SCH (10:12)
[2020-08-06] MEDS: DIVALPROEX ER 500 MG TAB PO SCH (10:12)
[2020-08-06] MEDS: clonazePAM 0.5 MG TAB PO SCH ×2 (10:12→13:52)
[2020-08-06] MEDS: LISINOPRIL 20 MG TAB PO SCH (10:13)
[2020-08-06] MEDS: NICOTINE 21 MG/24 HR PATCH TD SCH (10:13)
[2020-08-06 10:49] VITALS: BP 136/76
--- NOTE | 2020-08-06 10:58 | Discharge Summary ---
Providers - Providers Date of Admission: 08/01/20 18:02 Date of discharge: 08/06/20 Attending physician: TIFFANIE BURNS MD 08/01/20 17:00 Consult to Physician [CONS] Routine Comment: Consulting Provider: RACHEL CHI Physician Instructions: Reason For Exam: manage medical conditions Primary care physician: BENITA PAIGE MD Hospitalization Reason for admission: Danger to self Condition: Good Hospital course: The patient was provided inpatient psychiatric treatment with safe and supportive environment, group/individual therapy, psychiatric medication, medication adjustment, adverse effect monitor, medical evaluation, medical treatment, social service assessment, social support meeting, placement as sessment and psycho-education. The patients mood, cognition, behavior, motivation, compliance to treatment and appreciation on family/social support are improved and stabilized. At the time of discharge, the patient had no suicidal ideas, no homicidal ideas, no aggressive thoughts, no endangering behavior and no debilitating adverse effects. The patient agareed on the treatment plan, understood the risk, benefit, alternative treatment, potential consequence of no treatment, and gave informed consent. Disposition: DC-01 TO HOME OR SELFCARE Allergies/Adverse Reactions: Allergies buspirone HCl [From BuSpar] Adverse Reaction (Verified 05/14/18 16:59) PSYCHOTIC haloperidol [From Haldol] Adverse Reaction (Verified 05/14/18 16:59) HANDS SWELL / PSYCHOTIC haloperidol lactate [From Haldol] Adverse Reaction (Verified 05/14/18 16:59) HANDS SWELL / PSYCHOTIC olanzapine [From Zyprexa] Adverse Reaction (Verified 05/14/18 16:59) PSYCHOTIC quetiapine fumarate [From Seroquel] Adverse Reaction (Verified 05/14/18 16:59) PSYCHOTIC Vital Signs: Last Vital Signs Temp 97.7 F 08/06/20 10:34 Pulse 94 H 08/06/20 10:34 Resp 18 08/06/20 10:34 BP 136/76 08/06/20 10:34 Pulse Ox 99 08/06/20 10:34 Last Lab: Laboratory Last Values Creatinine 1.0 mg/dL (0.8-1.3) 08/02/20 06:26 Estimated GFR > 60 ml/min 08/02/20 06:26 POC Glucose 83 mg/dL (70-105) 08/02/20 06:48 Hemoglobin A1c 5.8 % (4-6) 08/01/20 18:49 Triglycerides 140 mg/dL (2-149) 08/01/20 18:49 Cholesterol 171 mg/dL (50-199) 08/01/20 18:49 LDL Cholesterol Direct 115 mg/dL (50-130) 08/01/20 18:49 HDL Cholesterol 46 mg/dL (40-59) 08/01/20 18:49 Cholesterol/HDL Ratio 3.71 % 08/01/20 18:49 TSH 1.840 mlU/mL (0.270-4.200) 08/01/20 18:49 Core Measure Documentation - Palliative Care Palliative Care/ Comfort Measures: Not Applicable - Core Measures Any of the following diagnoses?: none Exam - Constitutional Vitals: Temp Pulse Resp BP Pulse Ox 97.7 F 94 H 18 136/76 99 08/06/20 10:34 08/06/20 10:34 08/06/20 10:34 08/06/20 10:34 08/06/20 10:34 General appearance: Present: no acute distress - EENT Eyes: Present: PERRL, EOM intact ENT: hearing intact, clear oral mucosa, dentition normal - Neck Neck: Present: supple, normal ROM - Respiratory Respiratory effort: normal - Abdominal Male genitourinary: Present: deferred - Integumentary Integumentary: Present: clear, warm, dry Plan Activity: no restrictions Care Plan Goals: Maintain good and stable mental health. Plan of Treatment: The patient should be compliant with medications, not to use drugs and not to drink alcohol. The patient understands that if suicidal ideas, homicidal ideas, or any endangering thoughts arise, the patient should immediately seek for emergent assistance including but not limited to crisis hot line and emergency room. Follow up with outpatient Psychiatrist and PCP within 7 - 14 days of discharge. Follow up with: BENITA PAIGE MD [Primary Care Provider] - 7 Days Prescriptions: Divalproex ER [Depakote ER] 500 mg PO BID #60 tablet Venlafaxine [Effexor] 300 mg PO DAILY #30 tablet Paliperidone [Invega] 6 mg PO QDAY #30 tablet
== END 2020-08-06 14:25 | disposition home or self-care (01) | DRG 885 ==
LOC: 3A 15:19 → UNDOADMIN 15:19 → 5A 18:02
PROVIDERS: ADMIT Psychiatry & Neurology Psychiatry; ATTEND Psychiatry & Neurology Psychiatry
DX: F25.0 Schizoaffective disorder, bipolar type (principal); F01.51 Vascular dementia, unspecified severity, with behavioral disturbance; F43.10 Post-traumatic stress disorder, unspecified; I10 Essential (primary) hypertension; F41.1 Generalized anxiety disorder; J06.9 Acute upper respiratory infection, unspecified; M19.90 Unspecified osteoarthritis, unspecified site; F17.200 Nicotine dependence, unspecified, uncomplicated; Z88.8 Allergy status to other drugs, medicaments and biological substances; Z79.899 Other long term (current) drug therapy
CPT/HCPCS: 36415; 80053; 80061; 80164; 80307; 80320; 81001; 82565; 82962; 83036; 84443; 85025; 85610; 85730; 93005; G0378; G0480; J3246; U0003